=== PATIENT | male | born 1955 | race Caucasian/White ===

== ENCOUNTER 2019-09-08 07:19 | Outpatient (CLI) | payer MEDICARE, SELFPAY ==
[2019-09-08 07:43] LABS: Add Urine Microscopic? YES; Appearance Urine Clear (Clear); Bilirubin Urine Negative (Negative); Blood Urine 1+ (Negative); Color Urine Yellow (Yellow); Glucose Urine UA Negative (Negative); Ketones Urine Negative (Negative); Leukocyte Esterase Ur Negative (Negative); Nitrate Urine Negative (Negative); Protein Urine Negative (Negative); Specific Grav Ur >= 1.030 (1.010-1.020); Urobilinogen Urine 0.2 mg/dL (0.2-1.0); pH Urine 5.5 (5.0-8.0)
[2019-09-08 07:56] LABS: WBC Urine 0-3 /hpf (0-3)
[2019-09-08 07:57] LABS: Bacteria Urine None seen /hpf; RBC Urine 0-2 /hpf (0-2); Squamous Epithelial Cell Urine None seen /hpf (Few)
[2019-09-08 08:11] LABS: Creatinine Urine 135.43 mg/dL (40-278)
[2019-09-08 08:13] LABS: Hemoglobin A1C 7.7 % (<5.7)
[2019-09-08 08:20] LABS: MALB Creatinine Ratio 14.1 mg/g (0-30); Microalbumin Urine Random 19.2 mg/L
[2019-09-08 09:33] LABS: Alanine Aminotransferase 46 U/L (16-63); Alkaline Phosphatase 41 U/L (46-116); Anion Gap 15.6 mmol/L (7-16); Aspartate Amino Transferase 28 U/L (15-37); Bilirubin,Total 0.4 mg/dL (0.00-1.00); Blood Urea Nitrogen 21 mg/dL (7-18); Calcium 9.6 mg/dL (8.5-10.1); Carbon Dioxide 27 mmol/L (21-32); Chloride 103 mmol/L (98-108); Cholesterol 186 mg/dL (0-200); Creatine Kinase 140 U/L (39-308); Estimated Glomerular Filt Rate > 60; Glucose 167 mg/dL (70-99); HDL Direct 42 mg/dL (40-60); LDL Cholesterol Calculated 99 mg/dL (<130); Osmolality Calculated 299 mOsm/kg (285-295); Potassium 4.6 mmol/L (3.5-5.1); Prostate Specific Antigen 0.4 ng/mL (< OR = 4.0); Sodium 141 mmol/L (136-145); Total Protein 7.1 g/dL (6.4-8.2); Triglycerides 224 mg/dL (0-150); Uric Acid 5.1 mg/dL (3.5-7.2)
== END 2019-09-08 07:20 | disposition home or self-care (01) ==
LOC: CHSLAB 07:31
PROVIDERS: PCP Internal Medicine; Visit Provider Internal Medicine
DX: E79.0 Hyperuricemia without signs of inflammatory arthritis and tophaceous disease (principal); I10 Essential (primary) hypertension; E11.65 Type 2 diabetes mellitus with hyperglycemia; E78.5 Hyperlipidemia, unspecified; Z12.5 Encounter for screening for malignant neoplasm of prostate
CPT/HCPCS: 36415; 80053; 80061; 81001; 82043; 82550; 83036; 84153; 84550; G0103

== ENCOUNTER 2019-12-02 07:07 | Outpatient (CLI) | payer MEDICARE, SELFPAY ==
[2019-12-02 07:27] LABS: Hemoglobin A1C 6.7 % (<5.7)
[2019-12-02 07:47] LABS: Anion Gap 11.5 mmol/L (7-16); Blood Urea Nitrogen 20 mg/dL (7-18); Calcium 9.2 mg/dL (8.5-10.1); Carbon Dioxide 29 mmol/L (21-32); Chloride 105 mmol/L (98-108); Estimated Glomerular Filt Rate 57; Glucose 113 mg/dL (70-99); Osmolality Calculated 295 mOsm/kg (285-295); Potassium 4.5 mmol/L (3.5-5.1); Sodium 141 mmol/L (136-145)
== END 2019-12-02 07:08 | disposition home or self-care (01) ==
LOC: CHSLAB 07:10
PROVIDERS: PCP Internal Medicine; Visit Provider Internal Medicine
DX: E11.65 Type 2 diabetes mellitus with hyperglycemia (principal)
CPT/HCPCS: 36415; 80048; 83036

== ENCOUNTER 2020-01-18 01:25 | Observation (INO) | payer MEDICARE, SELFPAY ==
[2020-01-18] VITALS (10 sets, daily range): BP systolic 114–157; BP diastolic 56–86; PULSE 56–91; RESP 18–20; TEMP 35.8–37; O2SAT 97–100; BMI 35.4
--- NOTE | ~2020-01-18 | XR_ITS ---
EXAMINATION: XR chest 2V DATE: 01/18/2020 02:11 INDICATION: Unresponsive. TECHNIQUE: Frontal and lateral views of the chest were obtained. COMPARISON: Chest 2 views 03/29/2014, chest CT 04/24/2006 FINDINGS: The chest demonstrates clear lungs without pneumonia, pleural effusion, or pneumothorax. Th e heart size is normal. IMPRESSION: 1. No acute cardiopulmonary disease. Reviewed, dictated and finalized at location A.
--- NOTE | ~2020-01-18 | CT_ITS ---
EXAMINATION: CT brain wo con DATE: 01/18/2020 02:10 INDICATION: Unresponsive. TECHNIQUE: Computed tomography (CT) of the head was performed without intravenous contrast. The mA wa s adjusted according to patient size. Iterative reconstruction technique was employed. The dose-lengt h product was 681.00 mGy-cm. COMPARISON: None FINDINGS: There is no intracranial hemorrhage, acute infarction, or abnormal intracranial mass lesion . The ventricles are normal in size. There is mild mucosal thickening in the ethmoid sinuses. The orb its are normal. The mastoid air cells are normal. IMPRESSION: 1. Normal brain. Reviewed, dictated and finalized at location A. IMPRESSION: 1. Normal brain.
[2020-01-18 01:34] LABS: Glucose Point of Care 94 (65-105)
--- NOTE | 2020-01-18 01:34 | ECG_ITS ---
Measurements Intervals [place] Rate: 58 P: 16 IN: 143 QRS: -9 QRSD: 103 T: 63 QT: 412 QTc: 406 Interpretive Statements SINUS BRADYCARDIA INCOMPLETE RIGHT BUNDLE BRANCH BLOCK BASELINE WANDER- V4 BORDERLINE ECG Electronically Signed On 01-18-2020 8:56:41 CDT by Ihsan Roque D.O.
[2020-01-18 02:03] LABS: Hematocrit 43.3 % (37.0-46.0); Hemoglobin 14.1 g/dL (12.4-15.3); Mean Corpuscular HGB Conc 32.6 g/dL (32.0-36.0); Mean Corpuscular Hemoglobin 30.9 pg (27.0-31.0); Mean Corpuscular Volume 94.7 fL (78.0-102.0); Mean Platelet Volume 9.8 fl (8.7-11.0); Platelet Count Result 303 K/mm3 (150-420); Red Blood Count 4.57 M/mm3 (4.70-6.10); Red Cell Distribution Width 13.5 % (11.6-14.4); White Blood Count 9.8 K/mm3 (4.8-10.8)
--- NOTE | 2020-01-18 02:05 | ED.GENADULT ---
HPI - General Adult General Chief complaint: Unspecified Stated complaint: Hypoglycemia Source: patient, family and EMS Mode of arrival: EMS History of Present Illness HPI narrative: this is a 64-year-old gentleman that was EMS was called to his home after his found him unresponsive and breathing in the usual manner, after EMS arrived blood sugar were obtained and found to be in 30s and patient received D10 and brought to the emergency department. Patient is alert awake responsive currently blood sugars have improved with some glucose level currently of 94, patient denies any headache, no blurry vision no chest pain or pressure no fever chills no cough or shortness of breath no abdominal pain no dysuria no flank pain. Patient has a history of diabetes mellitus type 2 and is currently on metformin, glimepiride, and recently started on Actos approximately 2 to 3 weeks ago. Patient does drink 2 or 3 beers nightly, has a history of hyperlipidemia and hypertension. Onset (ago): hour(s) Related Data Home Medications Medication Instructions Recorded Confirmed atorvastatin 40 mg PO DAILY 01/18/20 01/18/20 coenzyme Q10 [CoQ-10] 200 mg PO DAILY 01/18/20 01/18/20 fenofibrate 145 mg PO DAILY 01/18/20 01/18/20 glimepiride 4 mg PO DAILY 01/18/20 01/18/20 losartan-hydrochlorothiazide 1 tablet PO DAILY 01/18/20 01/18/20 metformin 1,000 mg PO BID 01/18/20 01/18/20 tozuhfzr-mlo-NN-lycopen-lutein 1 tablet PO DAILY 01/18/20 01/18/20 [Centrum Silver] pioglitazone 45 mg PO DAILY 01/18/20 01/18/20 Allergies Allergy/AdvReac Type Severity Reaction Status Date / Time No Known Drug Allergies Allergy Unknown Verified 04/07/14 05:59 Review of Systems Review of Systems: All systems reviewed & are unremarkable except as noted in HPI and below PMFSH Past Medical History Medical History Diabetes mellitus HLD (hyperlipidemia) HTN (hypertension) Exam Const: General: no acute distress and alert Orientation/consciousness: patient oriented x3 HENMT: Head: normal to inspection Eyes: Conjunctivae: conjunctivae normal Pupils: Equal, round and reactive pupils present EOM: EOMs intact bilaterally Neck: Neck: normal visual inspection, no lymphadenopathy and no meningeal signs Chest: Chest palpation & inspection: normal inspection of the chest Resp: Effort & Inspection: normal respiratory effort Auscultation: clear to auscultation bilaterally Cardio: Rate: regular rate and bradycardic GI: GI Palp: Yes Soft to palpation Auscultation: normal bowel sounds : General: Yes no CVA tenderness Male General Exam: Yes normal external exam Testes: Testes normal Back/Spine/Pelvis: Back: no CVA tenderness Skin: General skin exam: normal color Rashes: no rashes Neuro: General: patient oriented x3, moves all extremities, no meningeal signs and no focal motor deficits Extrem: General: normal to inspection and no pedal edema Psych: Appearance: grossly normal and well kempt Mental Status: mental status grossly normal Affect: normal affect Thought content: Yes Normal thought content present Course Course Emergency Course: Reassessment of patient patient is currently alert awake responsive with no neurological deficits, currently resting comfortably and having a snack. Patient continues to be comfortable after a 2nd reassessment he had his snacks blood glucose level on his comprehensive metabolic plus profile was 47, and a repeat blood glucose level was down to 59. Talked to patient and family and advised admission to monitor blood glucose levels overnight. Vital Signs Vital signs: Vital Signs Temperature 36.2 C L 01/18/20 01:38 Pulse Rate 69 01/18/20 01:38 Respiratory Rate 01/18/20 01:38 Blood Pressure 152/78 H 01/18/20 01:38 Pulse Oximetry 99 01/18/20 01:38 Temperature 36.2 C L 01/18/20 01:38 Pulse Rate 69 01/18/20 01:38 Respiratory Rate 01/18/20
[2020-01-18 02:16] LABS: Appearance Urine Clear (Clear); Bilirubin Urine Negative (Negative); Color Urine Yellow (Yellow); Glucose Urine UA Negative (Negative); Ketones Urine Negative (Negative); Leukocyte Esterase Ur Negative (Negative); Nitrate Urine Negative (Negative); Protein Urine Negative (Negative); pH Urine 5.5 (5.0-8.0)
--- NOTE | 2020-01-18 02:16 | PC.NURSE ---
sandwich , fruit cup and orange juice given to patient.
[2020-01-18 02:22] LABS: Add Urine Microscopic? YES; Bacteria Urine None seen /hpf; Blood Urine Trace-Intact (Negative); RBC Urine 0-2 /hpf (0-2); Squamous Epithelial Cell Urine None seen /hpf (Few); WBC Urine 0-3 /hpf (0-3)
[2020-01-18 02:31] LABS: Alanine Aminotransferase 29 U/L (16-63); Albumin Level 3.7 g/dL (3.4-5.0); Alkaline Phosphatase 49 U/L (46-116); Aspartate Amino Transferase 19 U/L (15-37); Bilirubin,Total 0.3 mg/dL (0.00-1.00); Blood Urea Nitrogen 35 mg/dL (7-18); Calcium 9.3 mg/dL (8.5-10.1); Carbon Dioxide 32 mmol/L (21-32); Chloride 103 mmol/L (98-108); Estimated CRCL calculation 57 ml/min; Estimated Glomerular Filt Rate 50; Magnesium 1.6 mg/dL (1.8-2.4); Osmolality Calculated 299 mOsm/kg (285-295); Sodium 142 mmol/L (136-145); Total Protein 7.3 g/dL (6.4-8.2)
[2020-01-18 02:36] LABS: Ethanol < 3 mg/dL (0-6); Glucose 47 mg/dL (70-99); Troponin I < 0.02 ng/mL (0.00-0.056)
--- NOTE | 2020-01-18 02:37 | PC.NURSE ---
pt ate 100% of food given remains alert and stable, talking with at bedside.
[2020-01-18 02:44] LABS: Glucose Point of Care 59 (65-105)
[2020-01-18] MEDS: DEXTROSE 5% 1,000 ML 1,000 ML 100 ML (02:56)
--- NOTE | 2020-01-18 03:53 | PC.NURSE ---
Dextrose 5% continues 100ml hr from ER.
[2020-01-18 06:57] LABS: Basophils Absolute Auto 0.04 K/mm3 (0.00-0.10); Basophils Percent Auto 0.5 % (0.0-1.0); Eosinophils Absolute Auto 0.05 K/mm3 (0.02-0.50); Eosinophils Percent Auto 0.6 % (1.0-6.0); Hematocrit 40.3 % (37.0-46.0); Hemoglobin 13.3 g/dL (12.4-15.3); Immature Granulocyte Absolute 0.09 K/mm3 (0.00-0.00); Lymphocytes Absolute Auto 1.28 K/mm3 (1.10-4.50); Lymphocytes Percent Auto 14.7 % (18.0-42.0); Mean Corpuscular Hemoglobin 31.2 pg (27.0-31.0); Mean Corpuscular Volume 94.6 fL (78.0-102.0); Mean Platelet Volume 9.7 fl (8.7-11.0); Monocytes Absolute Auto 0.83 K/mm3 (0.10-0.90); Monocytes Percent Auto 9.5 % (2.0-11.0); Neutrophils Absolute Auto 6.4 K/mm3 (1.7-7.2); Neutrophils Percent Auto 73.7 % (50.0-70.0); Platelet Count Result 274 K/mm3 (150-420); Red Blood Count 4.26 M/mm3 (4.70-6.10); Red Cell Distribution Width 13.5 % (11.6-14.4); White Blood Count 8.7 K/mm3 (4.8-10.8)
[2020-01-18 07:18] LABS: Alanine Aminotransferase 27 U/L (16-63); Albumin Level 3.3 g/dL (3.4-5.0); Alkaline Phosphatase 33 U/L (46-116); Anion Gap 9.2 mmol/L (7-16); Aspartate Amino Transferase 18 U/L (15-37); Bilirubin,Total 0.3 mg/dL (0.00-1.00); Blood Urea Nitrogen 33 mg/dL (7-18); Calcium 8.8 mg/dL (8.5-10.1); Carbon Dioxide 31 mmol/L (21-32); Chloride 104 mmol/L (98-108); Estimated CRCL calculation 58 ml/min; Estimated Glomerular Filt Rate 51; Glucose 54 mg/dL (70-99); Magnesium 1.6 mg/dL (1.8-2.4); Osmolality Calculated 295 mOsm/kg (285-295); Potassium 4.2 mmol/L (3.5-5.1); Sodium 140 mmol/L (136-145); Total Protein 6.3 g/dL (6.4-8.2)
[2020-01-18 07:45] LABS: Glucose Point of Care 46 (65-105)
[2020-01-18 08:21] LABS: Glucose Point of Care 95 (65-105)
[2020-01-18] MEDS: ATORVASTATIN 40 MG TABLET PO (08:59)
[2020-01-18] MEDS: FENOFIBRATE NANOCRYSTALLIZED 145 MG TABLET PO (09:00)
[2020-01-18] MEDS: THERAPEUTIC MULTIVITAMINS/MINERALS TAB (*BKC) 1 TABLET PO (09:00)
[2020-01-18] MEDS: LOSARTAN POTASSIUM 50 MG TABLET 100 MG PO (09:00)
[2020-01-18] MEDS: MAGNESIUM OXIDE 400 MG TABLET PO (09:00)
[2020-01-18] MEDS: hydroCHLOROthiazide 25 MG TABLET PO (09:00)
[2020-01-18 09:01] LABS: Lipase 322 U/L (73-393)
[2020-01-18 10:06] LABS: Glucose Point of Care 65 (65-105)
--- NOTE | 2020-01-18 10:13 | PC.NURSE ---
Dextrose 10 started per Negin Marcano [id number]/hr
[2020-01-18 12:00] LABS: Glucose Point of Care 38 (65-105)
[2020-01-18] MEDS: DEXTROSE 10% 250 ML 100 ML IV CONT ×5 (12:31→23:11)
[2020-01-18 12:33] LABS: Glucose 40 mg/dL (70-99)
--- NOTE | 2020-01-18 14:34 | PM.IMHP ---
H&P: HPI History of Present Illness Chief complaint: Hypoglycemia Narrative: Karson Maharaj is a 64 year old male admitted overnight for hypoglycemia after EMS was called to his home. His had found him unresponsive and breathing unusually. After EMS arrived, blood sugars were obtained and found to be in 30s. He received [id number]% and brought to the emergency department. Patient improved to alert awake responsive. He was admitted. His blood sugars have improved with IV glucose supplementation. Patient currently denies any headache, blurry vision, chest pain or pressure, fever chills, cough or shortness of breath, viral or COVID exposure, abdominal pain, dysuria or flank pain. Patient has a history of diabetes mellitus type 2 and is currently on metformin, glimepiride 8mg daily, and started on Actos 45 mg daily (divided dose) in August or September 2019. Patient is now retired, does drink 2 or 3 beers nightly, has a history of hyperlipidemia and hypertension. His ethyl alcohol level was WNL, his UA clear, his head CT and CXR were without acute concerns. Karson is fully responsive today with no noted neurological deficits. His is at bedside. He is currently resting comfortably. He has been ambulating to and from the bathroom, around his hospital room without any difficulty. He is eating and drinking all meals without any nausea or vomiting or diarrhea. Despite the continuous IV dextrose5% at 100 mL an hour, his glucose levels remained in the 30s and 40s this morning. I discontinued the dextrose 5%, increased it to dextrose at 10%, continuously at 100 mL an hour and changed his glucose checks to be every 2 hours continuously. Karson has denied any weight loss recently, he has denied any dietary changes recently, he is denied any trauma or motor vehicle accidents, denied any back or abdominal pain, his mother did pass away from liver cancer in her late 80s, but no other family cancer of note. Karson reports the last time that he took his home oral diabetes medications including the metformin, glimepiride, Actos was last night around 9:00 p.m. prior to his bedtime at home. Due to the half life of these medications his hypoglycemia may persist 24-72 hours. We will plan on monitoring the patient until we are able to wean him from the IV dextrose; plus he is able to safely maintain glucose levels above 100 for 24 hours prior to discharge without requiring supplementation. I did call and speak to his primary care provider Dr. Nghia Day. According to the PCP, there have been no recent medication changes, the Actos was added back in August when his A1C was 7.7. Then in November his A1C was 6.7 Upon my reviewing of the patient's own glucose log, it was evident on some days that his sugars would drop overnight, but then with his poor dietary choices would rise significantly during the day; this may have been attributing to his overall elevated A1C levels. Karson may need to have diabetes medications for morning and daytime control with less dosing or skipping dosing in the evening. I have referred the patient to 1 of 3 endocrinologists at [facility], including Dr. Dory Mackey (recommended by Dr. Day), the patient and his stated they would follow-up. I have spoke with the patient at length regarding carb counting, diabetic diet recommendations, and exercise importance in controlling blood sugars. We have also discussed how important it is for him to stop drinking alcohol. I have encouraged him to ambulate at least 10 minutes after every meal. We will continue to hold his oral diabetes medications at this time. Review of Systems Review of Systems: All systems reviewed & are unremarkable except as noted in HPI and below Constitutional: Constitutional: Reports as per HPI, Denies excessive sweating, Denies headache(s), Denies increased appetite, Denies snoring and Denies weight gain Eyes: Eyes: Reports as per HPI, Denies exophthalmos,
[2020-01-18 15:09] LABS: Glucose Point of Care 66 (65-105)
[2020-01-18 18:09] LABS: Glucose Point of Care 165 (65-105)
[2020-01-18 19:25] LABS: Glucose Point of Care 88 (65-105)
[2020-01-18 20:16] LABS: Glucose Point of Care 157 (65-105)
[2020-01-18 22:08] LABS: Glucose Point of Care 162 (65-105)
[2020-01-19] VITALS: BP 146/69; PULSE 57; PULSE 60; RESP 20; TEMP 36.2; O2SAT 98
[2020-01-19 00:14] LABS: Glucose Point of Care 176 (65-105)
--- NOTE | 2020-01-19 00:29 | PC.NURSE ---
Notified Dr. Cabral about pt's blood sugar. Orders received and noted.
[2020-01-19] MEDS: DEXTROSE 5% 1,000 ML 1,000 ML 100 ML IV CONT (01:05)
[2020-01-19 02:04] LABS: Glucose Point of Care 185 (65-105)
[2020-01-19 03:00] VITALS: PULSE 61
[2020-01-19 04:00] VITALS: BP 139/69; PULSE 55; PULSE 66; RESP 20; TEMP 36.2; O2SAT 99
[2020-01-19 05:49] LABS: Basophils Absolute Auto 0.04 K/mm3 (0.00-0.10); Basophils Percent Auto 0.6 % (0.0-1.0); Eosinophils Absolute Auto 0.16 K/mm3 (0.02-0.50); Eosinophils Percent Auto 2.3 % (1.0-6.0); Hematocrit 40.7 % (37.0-46.0); Hemoglobin 13.6 g/dL (12.4-15.3); Immature Granulocyte Absolute 0.07 K/mm3 (0.00-0.00); Lymphocytes Absolute Auto 1.58 K/mm3 (1.10-4.50); Lymphocytes Percent Auto 22.3 % (18.0-42.0); Mean Corpuscular HGB Conc 33.4 g/dL (32.0-36.0); Mean Corpuscular Hemoglobin 31.3 pg (27.0-31.0); Mean Corpuscular Volume 93.6 fL (78.0-102.0); Mean Platelet Volume 9.3 fl (8.7-11.0); Monocytes Percent Auto 9.9 % (2.0-11.0); Neutrophils Absolute Auto 4.5 K/mm3 (1.7-7.2); Neutrophils Percent Auto 63.9 % (50.0-70.0); Platelet Count Result 259 K/mm3 (150-420); Red Blood Count 4.35 M/mm3 (4.70-6.10); Red Cell Distribution Width 13.4 % (11.6-14.4); White Blood Count 7.1 K/mm3 (4.8-10.8)
[2020-01-19 05:57] LABS: Glucose Point of Care 176 (65-105)
[2020-01-19 05:57] LABS: Glucose Point of Care 168 (65-105)
[2020-01-19 06:05] LABS: Alanine Aminotransferase 27 U/L (16-63); Albumin Level 3.5 g/dL (3.4-5.0); Alkaline Phosphatase 39 U/L (46-116); Anion Gap 7.3 mmol/L (7-16); Aspartate Amino Transferase 18 U/L (15-37); Bilirubin,Total 0.4 mg/dL (0.00-1.00); Blood Urea Nitrogen 24 mg/dL (7-18); Calcium 8.9 mg/dL (8.5-10.1); Carbon Dioxide 33 mmol/L (21-32); Chloride 102 mmol/L (98-108); Estimated CRCL calculation 59 ml/min; Estimated Glomerular Filt Rate 51; Glucose 176 mg/dL (70-99); Osmolality Calculated 294 mOsm/kg (285-295); Potassium 4.3 mmol/L (3.5-5.1); Sodium 138 mmol/L (136-145); Total Protein 6.8 g/dL (6.4-8.2)
[2020-01-19 07:50] VITALS: BP 130/67; PULSE 82; RESP 18; TEMP 36.2; O2SAT 100
[2020-01-19 07:50] LABS: Glucose Point of Care 211 (65-105)
[2020-01-19] MEDS: hydroCHLOROthiazide 25 MG TABLET PO (08:57)
[2020-01-19] MEDS: THERAPEUTIC MULTIVITAMINS/MINERALS TAB (*BKC) 1 TABLET PO (08:57)
[2020-01-19] MEDS: MAGNESIUM OXIDE 400 MG TABLET PO (08:57)
[2020-01-19] MEDS: FENOFIBRATE NANOCRYSTALLIZED 145 MG TABLET PO (08:57)
[2020-01-19] MEDS: ATORVASTATIN 40 MG TABLET PO (08:57)
[2020-01-19] MEDS: LOSARTAN POTASSIUM 50 MG TABLET 100 MG PO (08:57)
[2020-01-19 09:59] LABS: Glucose Point of Care 260 (65-105)
--- NOTE | 2020-01-19 11:28 | PM.IMPN ---
Progress Note: A&P Assessment and Plan (1) Hypoglycemia: Code(s): E16.2 - Hypoglycemia, unspecified <Negin Marcano NP - Last Filed: 01/19/20 15:52> Status: Acute <Negin Marcano NP - Last Filed: 01/19/20 15:52> Assessment and Plan: starting having random hypoglycemic episodes in September with blood sugars less than 80 on multiple occasions in September and October and November according to his home glucose check log Check glucose levels every 2 hours continue IV drip of dextrose 10% at 100 mL an hour continuous telemetry monitoring creatinine baseline 1.2 per primary care provider Dr. Day, currently creatinine 1.4 diabetic diet holding his home diabetic medications including glimepiride, metformin, Actos referred patient to see practice billing associate after discharge <Negin Marcano NP - Last Filed: 01/19/20 15:52> (2) Diabetes mellitus: Qualifiers: Diabetes mellitus complication status: without complication Diabetes mellitus middle or intermediate school principal insulin use: without middle or intermediate school principal use Diabetes mellitus type: type 2 Qualified Code(s): E11.9 - Type 2 diabetes mellitus without complications <Negin Marcano NP - Last Filed: 01/19/20 15:52> Code(s): E11.9 - Type 2 diabetes mellitus without complications <Negin Marcano NP - Last Filed: 01/19/20 15:52> Status: Acute <Negin Marcano NP - Last Filed: 01/19/20 15:52> Assessment and Plan: patient refusing to use insulin and due to poor dietary choices over last 6 months, elevated A1Cs, requiring more oral medications per PCP to control DMII. December 01 A1c was 6.7 Check glucose levels ACHS and every 2-4 hours PRN creatinine baseline 1.2 per primary care provider Dr. Day, currently creatinine 1..39 from 1.4 yesterday diabetic diet not consistently followed at home, such as reports eating ice cream before bedtime frequently and/or 2 or 3 beers at night restarted metformin, holding his home diabetic medications including glimepiride, Actos referred patient to see practice billing associate after discharge <Negin Marcano NP - Last Filed: 01/19/20 15:52> (3) Alcohol use: Code(s): Z72.89 - Other problems related to lifestyle <Negin Marcano NP - Last Filed: 01/19/20 15:52> Status: Acute <Negin Marcano NP - Last Filed: 01/19/20 15:52> Assessment and Plan: reports having 2-3 beers at night encourage patient to stop alcohol use completely educated patient regarding how alcohol can lead to hyperglycemia as well as significant hypoglycemia will encourage patient to attend AA meetings will monitor for any DT or withdrawal symptoms or concerns. continuous telemetry monitoring ordered <Negin Marcano NP - Last Filed: 01/19/20 15:52> (4) NICK (acute kidney injury): Code(s): N17.9 - Acute kidney failure, unspecified <Negin Marcano NP - Last Filed: 01/19/20 15:52> Status: Acute <Negin Marcano NP - Last Filed: 01/19/20 15:52> Assessment and Plan: creatinine baseline 1.2 per primary care provider Dr. Day, currently creatinine 1.39 August and November 2019 labs show a creatinine of 1.1 and 1.2 his current renal dysfunction may be related to dehydration and/or diabetes medications and/or complications of diabetes Encouraging oral hydration to improve on diabetic diet holding his home diabetic medications including glimepiride and Actos restarting Metformin, repeating BMP in morning to monitor if renal function tolerates that. patient to see PCP and/or practice billing associate after discharge <Negin Marcano NP - Last Filed: 01/19/20 15:52> Subjective Date/time seen: 01/19/20 11:28 Karson is feeling well today. Starting around 6:00 p.m. yesterday evening his point of care glucose level started to improve. Around 6:00 p.m. yesterday it was 165 and stated above 150 until today. We were able to discontinue the dextrose 5% IV fluids this morning. We were also able to di
[2020-01-19 11:43] LABS: Glucose Point of Care 150 (65-105)
[2020-01-19 12:00] VITALS: BP 109/55; PULSE 85; RESP 18; TEMP 36.3; O2SAT 97
[2020-01-19] MEDS: metFORMIN HCL XR 500 MG TAB.SR.24H PO ×2 (13:33→21:21)
[2020-01-19 15:48] LABS: Glucose Point of Care 184 (65-105)
[2020-01-19 16:00] VITALS: BP 136/60; PULSE 80; RESP 18; TEMP 36.4; O2SAT 98
[2020-01-19 16:59] LABS: Glucose Point of Care 132 (65-105)
--- NOTE | 2020-01-19 19:00 | PC.NURSE ---
Patient ambulating in [place] independently.
[2020-01-19 21:23] LABS: Glucose Point of Care 143 (65-105)
--- NOTE | 2020-01-19 21:56 | PC.NURSE ---
Patient given cottage cheese and a fruit cup for HS snack.
--- NOTE | 2020-01-19 22:30 | PC.NURSE ---
Patient resting in bed. No signs of distress are observed. Patient denies any need for assistance at this time.
[2020-01-20] VITALS: BP 141/57; PULSE 67; RESP 20; TEMP 36.3; O2SAT 96
[2020-01-20 00:48] LABS: Glucose Point of Care 153 (65-105)
--- NOTE | 2020-01-20 02:00 | PC.NURSE ---
Patient appears to be sleeping. No signs of distress are observed. Call light and personal items are within reach.
--- NOTE | 2020-01-20 04:00 | PC.NURSE ---
Patient appears to be sleeping. No signs of distress are observed.
[2020-01-20 05:33] LABS: Glucose Point of Care 158 (65-105)
--- NOTE | 2020-01-20 05:50 | PC.NURSE ---
Patient is resting in bed. He is stating that he feels well. He is independent with self care and ambulation.
[2020-01-20 05:57] LABS: Anion Gap 10.3 mmol/L (7-16); Blood Urea Nitrogen 29 mg/dL (7-18); Calcium 8.8 mg/dL (8.5-10.1); Carbon Dioxide 31 mmol/L (21-32); Chloride 101 mmol/L (98-108); Estimated CRCL calculation 61 ml/min; Estimated Glomerular Filt Rate 54; Glucose 160 mg/dL (70-99); Osmolality Calculated 294 mOsm/kg (285-295); Potassium 4.3 mmol/L (3.5-5.1); Sodium 138 mmol/L (136-145)
--- NOTE | 2020-01-20 07:20 | PM.DS ---
DS: Admitting Diagnosis Admitting Diagnosis Admitting Diagnosis: Hypoglycemia, unspecified DS: Discharge Diagnosis Discharge Diagnosis (1) Hypoglycemia: Code(s): E16.2 - Hypoglycemia, unspecified Status: Acute Assessment and Plan: started having random hypoglycemic episodes in September with blood sugars less than 80 on multiple occasions in September and October and November according to his home glucose check log (was on Actos and Glimepiride at the time) discharged and instructed patient to check glucose levels 3 times a day creatinine baseline 1.2 per primary care provider Dr. Day, at admission creatinine 1.4, improved to 1.33 now. diabetic diet holding his home diabetic medications including glimepiride, Actos restarted him Metformin dosing referred patient to see dice spotter after discharge (2) Diabetes mellitus: Qualifiers: Diabetes mellitus complication status: without complication Diabetes mellitus exterminator insulin use: without exterminator use Diabetes mellitus type: type 2 Qualified Code(s): E11.9 - Type 2 diabetes mellitus without complications Code(s): E11.9 - Type 2 diabetes mellitus without complications Status: Acute Assessment and Plan: patient refusing to use insulin and due to poor dietary choices over last 6 months, had elevated A1Cs, requiring more oral medications per PCP to control DMII. December 01 A1c was 6.7 (was 7.7 prior) discharged and instructed patient to check glucose levels 3 times a day creatinine baseline 1.2 per primary care provider Dr. Day, at admission creatinine 1.4, improved to 1.33 now. diabetic diet not consistently followed at home, such as reports eating ice cream before bedtime frequently and/or 2 or 3 beers at night restarted metformin, holding his home diabetic medications including glimepiride, Actos referred patient to see dice spotter (3) Alcohol use: Code(s): Z72.89 - Other problems related to lifestyle Status: Acute Assessment and Plan: reports having 2-3 beers at night encourage patient to stop alcohol use completely educated patient regarding how alcohol can lead to hyperglycemia as well as significant hypoglycemia will encourage patient to attend AA meetings no DT or withdrawal symptoms or concerns. (4) NICK (acute kidney injury): Code(s): N17.9 - Acute kidney failure, unspecified Status: Acute Assessment and Plan: creatinine baseline 1.2 per primary care provider Dr. Day, at admission creatinine 1.4, improved to 1.33 now. August and November 2019 labs show a creatinine of 1.1 and 1.2 his current renal dysfunction may be related to dehydration and/or diabetes medications and/or HCTZ related and/or complications of diabetes Encouraging oral hydration to improve on diabetic diet holding his home diabetic medications including glimepiride and Actos restarted Metformin,BMP showed renal function tolerated that. patient to see PCP and/or dice spotter after discharge DS: Summary Time Spent with Patient Time attestation: Total time spent providing and/or coordinating discharge services:>60 minutes Exam Const: General: comfortable, no acute distress and alert Orientation/consciousness: patient oriented x3 HENMT: Head: normal to inspection General nose exam: Normal nares present and no epistaxis Mouth: Yes moist mucous membranes Eyes: General: appearance normal, both eyes and all related structures Conjunctivae: conjunctivae normal Pupils: Equal, round and reactive pupils present EOM: EOMs intact bilaterally Neck: Neck: normal visual inspection, no lymphadenopathy and no meningeal signs Chest: Chest palpation & inspection: normal inspection of the chest Resp: Effort & Inspection: normal respiratory effort Auscultation: clear to auscultation bilaterally, no crackles, no rales, no rhonchi and no wheezes Cardio: Rate: regular rate Rhythm: regular rhythm GI: Inspection: non-d
[2020-01-20 07:50] VITALS: BP 134/67; PULSE 75; RESP 18; TEMP 36.5; O2SAT 99
[2020-01-20] MEDS: MAGNESIUM OXIDE 400 MG TABLET PO (09:14)
[2020-01-20] MEDS: LOSARTAN POTASSIUM 50 MG TABLET 100 MG PO (09:14)
[2020-01-20] MEDS: metFORMIN HCL XR 500 MG TAB.SR.24H 1000 MG PO (09:15)
[2020-01-20] MEDS: hydroCHLOROthiazide 25 MG TABLET PO (09:15)
[2020-01-20] MEDS: FENOFIBRATE NANOCRYSTALLIZED 145 MG TABLET PO (09:15)
[2020-01-20] MEDS: THERAPEUTIC MULTIVITAMINS/MINERALS TAB (*BKC) 1 TABLET PO (09:15)
[2020-01-20] MEDS: ATORVASTATIN 40 MG TABLET PO (09:15)
--- NOTE | 2020-01-20 11:25 | PC.NURSE ---
at patient bedside. HERBERTH DIRECTOR INDEPENDENT in room to speak with patient discharge. BS 98. Patient denies any needs at this time.
[2020-01-20 11:29] LABS: Glucose Point of Care 98 (65-105)
--- NOTE | 2020-01-20 12:02 | PM.EVENT ---
Event Note Event Note Event Note: January 20, 2020 Re: Karson Maharaj 51 Letter of Medical Necessity - Referral Letter Dear Dr. Lin Lynn's Office, I am referring Karson Maharaj for evaluation and treatment due to Type II DM, recent hypoglycemia due to diabetic medications, NICK, facility sales and admin referral, Obesity, and need for diabetic and nutritional education. I have been Karson Maharaj's Hospitalist for his recent admission. His primary care physician Dr. Nghia Day and I have discussed the patient and his recent hospitalization, both agreed he should follow-up with an fire alarm repairer. Sincerely, [place] [address]
--- NOTE | 2020-01-20 12:31 | PC.NURSE ---
Faxed DC note and referral to Dr. Lin Lynn, Drivers License Examiner and confirmation in chart. Faxed DC sumnmary to Dr. Day's office and confirmation in chart.
--- NOTE | 2020-01-20 12:35 | PC.NURSE ---
Patient discharged to home. All discharge instructions and education reviewed with patient. Patient states understanding, no questions at present. All belongings gathered and sent home with patient. Patient left ambulatory accompanied by .IV site removed, tip intact, dressing applied to site.
== END 2020-01-20 12:35 | disposition home or self-care (01) ==
LOC: CHSED 02:48 → CHS2ND 02:55
PROVIDERS: Nurse Practitioner; Admitting Provider Emergency Medicine; Emergency Provider Emergency Medicine; PCP Internal Medicine; Visit Provider Emergency Medicine
DX: E11.649 Type 2 diabetes mellitus with hypoglycemia without coma (principal); E78.5 Hyperlipidemia, unspecified; I10 Essential (primary) hypertension; Z72.89 Other problems related to lifestyle; Z79.899 Other long term (current) drug therapy
CPT/HCPCS: 36415; 70450; 71046; 80048; 80053; 80307; 81001; 82947; 82948; 83605; 83690; 83735; 84484; 84681; 85025; 85027; 86337; 87040; 93005; 96365; 96366; 99283; 99285; A9270; G0378; J1815; J7070

== ENCOUNTER 2020-01-27 08:59 | Outpatient (CLI) | payer MEDICARE, SELFPAY ==
[2020-01-27 09:41] LABS: Anion Gap 11.6 mmol/L (7-16); Blood Urea Nitrogen 20 mg/dL (7-18); Calcium 9.9 mg/dL (8.5-10.1); Carbon Dioxide 29 mmol/L (21-32); Chloride 102 mmol/L (98-108); Estimated Glomerular Filt Rate > 60; Glucose 170 mg/dL (70-99); Magnesium 1.7 mg/dL (1.8-2.4); Osmolality Calculated 292 mOsm/kg (285-295); Potassium 4.6 mmol/L (3.5-5.1); Sodium 138 mmol/L (136-145)
== END 2020-01-27 09:00 | disposition home or self-care (01) ==
LOC: CHSLAB 09:02
PROVIDERS: PCP Internal Medicine; Visit Provider Internal Medicine
DX: E83.42 Hypomagnesemia (principal); I10 Essential (primary) hypertension
CPT/HCPCS: 36415; 80048; 83735

== ENCOUNTER 2020-03-07 09:02 | Outpatient (CLI) | payer SELFPAY | END 2020-03-07 09:03 | disposition home or self-care (01) | PROVIDERS: PCP Internal Medicine | DX: E11.65 Type 2 diabetes mellitus with hyperglycemia (principal) | CPT/HCPCS: 99199 ==

== ENCOUNTER 2020-05-17 09:18 | Outpatient (CLI) | payer MEDICARE, SELFPAY ==
[2020-05-18 14:03] LABS: SARS-CoV-2 RNA PCR Negative
== END 2020-05-17 09:19 | disposition home or self-care (01) ==
LOC: CHSLAB 09:21
PROVIDERS: PCP Internal Medicine; Visit Provider Internal Medicine
DX: Z20.828 Contact with and (suspected) exposure to other viral communicable diseases (principal)
CPT/HCPCS: 87635; C9803; U0003

== ENCOUNTER 2020-12-06 07:19 | Outpatient (CLI) | payer MEDICARE, SELFPAY ==
[2020-12-06 07:36] LABS: Appearance Urine Clear (Clear); Basophils Absolute Auto 0.07 K/mm3 (0.00-0.10); Bilirubin Urine Negative (Negative); Blood Urine 1+ (Negative); Eosinophils Absolute Auto 0.08 K/mm3 (0.02-0.50); Eosinophils Percent Auto 1.2 % (1.0-6.0); Glucose Urine UA 3+ (Negative); Hematocrit 48.5 % (37.0-46.0); Hemoglobin 15.9 g/dL (12.4-15.3); Immature Granulocyte Absolute 0.03 K/mm3 (0.00-0.00); Immature Granulocyte Percent A 0.4 % (0.0-0.0); Ketones Urine Negative (Negative); Leukocyte Esterase Ur Negative LEU/UL (Negative); Lymphocytes Absolute Auto 1.41 K/mm3 (1.10-4.50); Lymphocytes Percent Auto 20.4 % (18.0-42.0); Mean Corpuscular HGB Conc 32.8 g/dL (32.0-36.0); Mean Corpuscular Volume 91.5 fL (78.0-102.0); Mean Platelet Volume 9.3 fl (8.7-11.0); Monocytes Absolute Auto 0.71 K/mm3 (0.10-0.90); Monocytes Percent Auto 10.3 % (2.0-11.0); Neutrophils Absolute Auto 4.6 K/mm3 (1.7-7.2); Neutrophils Percent Auto 66.7 % (50.0-70.0); Nitrate Urine Negative (Negative); Platelet Count Result 333 K/mm3 (150-420); Protein Urine Negative (Negative); Specific Grav Ur 1.025 (1.010-1.020); Urobilinogen Urine 0.2 mg/dL (0.2-1.0); White Blood Count 6.9 K/mm3 (4.8-10.8); pH Urine 5.5 (5.0-8.0)
[2020-12-06 07:38] LABS: Add Urine Microscopic? YES; Color Urine Light Yellow (Yellow)
[2020-12-06 07:45] LABS: Bacteria Urine None seen /hpf; RBC Urine 0-2 /hpf (0-2); WBC Urine None seen /hpf (0-3)
[2020-12-06 07:57] LABS: Creatinine Urine 79.35 mg/dL (40-278); MALB Creatinine Ratio 16.3 mg/g (0-30); Microalbumin Urine Random < 13.0 mg/L
[2020-12-06 08:46] LABS: Alanine Aminotransferase 28 U/L (16-63); Alkaline Phosphatase 59 U/L (46-116); Anion Gap 11 mmol/L (8-16); Aspartate Amino Transferase 17 U/L (15-37); Bilirubin,Total 0.5 mg/dL (0.00-1.00); Blood Urea Nitrogen 15 mg/dL (7-18); Calcium 9.4 mg/dL (8.5-10.1); Carbon Dioxide 28 mmol/L (21-32); Chloride 101 mmol/L (98-108); Cholesterol 171 mg/dL (0-200); Creatine Kinase 102 U/L (39-308); Estimated Glomerular Filt Rate > 60; Glucose 146 mg/dL (70-99); HDL Direct 43 mg/dL (40-60); LDL Cholesterol Calculated 96 mg/dL (<130); Osmolality Calculated 293 mOsm/kg (285-295); Potassium 4.5 mmol/L (3.5-5.1); Prostate Specific Antigen 0.6 ng/mL (< OR = 4.0); Sodium 140 mmol/L (136-145); Total Protein 7.1 g/dL (6.4-8.2); Triglycerides 162 mg/dL (0-150); Uric Acid 4.1 mg/dL (3.5-7.2)
[2020-12-12 06:46] LABS: Fructosamine 250 umol/L (205-285)
== END 2020-12-06 07:20 | disposition home or self-care (01) ==
PROVIDERS: PCP Internal Medicine
DX: E11.65 Type 2 diabetes mellitus with hyperglycemia (principal); I10 Essential (primary) hypertension; E78.2 Mixed hyperlipidemia; E79.0 Hyperuricemia without signs of inflammatory arthritis and tophaceous disease; Z12.5 Encounter for screening for malignant neoplasm of prostate
CPT/HCPCS: 36415; 80053; 80061; 81001; 82043; 82550; 82985; 83036; 84153; 84550; 85025; G0103

== ENCOUNTER 2021-02-08 09:44 | Outpatient (CLI) | payer MEDICARE, SELFPAY ==
--- NOTE | 2021-02-08 11:10 | ECG_ITS ---
Measurements Intervals [place] Rate: 80 P: 34 GA: 146 QRS: -62 QRSD: 97 T: 52 QT: 367 QTc: 426 Interpretive Statements SINUS RHYTHM LEFT AXIS DEVIATION INCOMPLETE RIGHT BUNDLE BRANCH BLOCK INFERIOR INFARCT, AGE INDETERMINATE ABNORMAL ECG Electronically Signed On 02-08-2021 11:32:29 CDT by Ihsan Roque D.O.
[2021-02-08 11:45] LABS: Basophils Absolute Auto 0.1 K/mm3 (0.0-0.1); Basophils Percent Auto 0.8 % (0.2-1.2); Eosinophils Absolute Auto 0.1 K/mm3 (0-0.3); Eosinophils Percent Auto 0.8 % (0-4.4); Hematocrit 46.5 % (42.0-52.0); Hemoglobin 15.3 g/dL (14.0-18.0); Immature Granulocyte Absolute 0.03 K/mm3 (0.00-0.031); Immature Granulocyte Percent A 0.4 % (0-0.5); Lymphocytes Absolute Auto 1.23 K/mm3 (0.9-3.2); Lymphocytes Percent Auto 16.3 % (18.3-44.2); Mean Corpuscular HGB Conc 32.9 g/dl (32-36); Mean Corpuscular Hemoglobin 29.4 pg (26-34); Mean Corpuscular Volume 89.4 fl (80-100); Mean Platelet Volume 9.9 fl (7.4-10.4); Monocytes Absolute Auto 0.9 K/mm3 (0.1-0.6); Monocytes Percent Auto 11.2 % (2.6-8.5); Neutrophils Absolute Auto 5.3 K/mm3 (1.3-6.7); Neutrophils Percent Auto 70.5 % (45.5-73.1); Platelet Count Result 330 k/mm3 (150-375); Red Cell Distribution Width 13.1 % (11.5-14.5); White Blood Count 7.6 K/mm3 (4.5-10.0)
[2021-02-08 11:50] LABS: Urine Cotinine NEGATIVE
[2021-02-08 11:58] LABS: Albumin Level 4.6 g/dL (3.5-5.1); Anion Gap 9 mmol/L (8-16); Blood Urea Nitrogen 17 mg/dL (9-20); Calcium 10.3 mg/dL (8.4-10.2); Carbon Dioxide 27 mmol/L (22-30); Chloride 104 mmol/L (98-107); Estimated Glomerular Filt Rate > 60; Glucose 112 mg/dL (65-110); Potassium 4.2 mmol/L (3.4-5.0); Sodium 140 mmol/L (137-145)
[2021-02-08 12:44] LABS: Vitamin D 25 Hydroxy 48.6 ng/mL
== END 2021-02-08 09:45 | disposition home or self-care (01) ==
LOC: ANHSURGERY 09:50
PROVIDERS: PCP Internal Medicine; Visit Provider Orthopaedic Surgery
DX: Z01.818 Encounter for other preprocedural examination (principal); M16.11 Unilateral primary osteoarthritis, right hip; I25.2 Old myocardial infarction; I45.10 Unspecified right bundle-branch block; I45.2 Bifascicular block; Z51.81 Encounter for therapeutic drug level monitoring; Z79.899 Other long term (current) drug therapy
CPT/HCPCS: 80048; 80307; 82040; 82306; 85025; 87070; 93005

== ENCOUNTER 2021-07-12 07:16 | Outpatient (CLI) | payer MEDICARE, SELFPAY ==
[2021-07-12 07:32] LABS: Add Urine Microscopic? YES; Appearance Urine Clear (Clear); Basophils Absolute Auto 0.06 K/mm3 (0.00-0.10); Bilirubin Urine Negative (Negative); Blood Urine 1+ (Negative); Color Urine Light Yellow (Yellow); Eosinophils Absolute Auto 0.14 K/mm3 (0.02-0.50); Eosinophils Percent Auto 2.4 % (1.0-6.0); Glucose Urine UA 3+ (Negative); Hematocrit 50.5 % (37.0-46.0); Hemoglobin 16.5 g/dL (12.4-15.3); Immature Granulocyte Absolute 0.05 K/mm3 (0.00-0.00); Immature Granulocyte Percent A 0.9 % (0.0-0.0); Ketones Urine Negative (Negative); Leukocyte Esterase Ur Negative (Negative); Lymphocytes Absolute Auto 1.41 K/mm3 (1.10-4.50); Lymphocytes Percent Auto 24.5 % (18.0-42.0); Mean Corpuscular HGB Conc 32.7 g/dL (32.0-36.0); Mean Corpuscular Hemoglobin 30.1 pg (27.0-31.0); Mean Platelet Volume 9.9 fl (8.7-11.0); Monocytes Percent Auto 10.4 % (2.0-11.0); Neutrophils Absolute Auto 3.5 K/mm3 (1.7-7.2); Neutrophils Percent Auto 60.8 % (50.0-70.0); Nitrate Urine Negative (Negative); Platelet Count Result 304 K/mm3 (150-420); Protein Urine Negative (Negative); Red Blood Count 5.49 M/mm3 (4.70-6.10); Red Cell Distribution Width 13.6 % (11.6-14.4); Urobilinogen Urine 0.2 mg/dL (0.2-1.0); White Blood Count 5.8 K/mm3 (4.8-10.8); pH Urine 5.5 (5.0-8.0)
[2021-07-12 07:42] LABS: Bacteria Urine Trace /hpf; RBC Urine 0-2 /hpf (0-2); Squamous Epithelial Cell Urine Few /hpf (Few); WBC Urine None seen /hpf (0-3)
[2021-07-12 07:46] LABS: Creatinine Urine 99.64 mg/dL (40-278); MALB Creatinine Ratio 13.8 mg/g (0-30); Microalbumin Urine Random 13.8 mg/L
[2021-07-12 07:48] LABS: Hemoglobin A1C 6.8 % (<5.7)
[2021-07-12 08:04] LABS: Alanine Aminotransferase 34 U/L (16-63); Albumin Level 4.1 g/dL (3.4-5.0); Alkaline Phosphatase 55 U/L (46-116); Anion Gap 10 mmol/L (8-16); Aspartate Amino Transferase 20 U/L (15-37); Bilirubin,Total 0.4 mg/dL (0.00-1.00); Blood Urea Nitrogen 18 mg/dL (7-18); Calcium 9.2 mg/dL (8.5-10.1); Carbon Dioxide 27 mmol/L (21-32); Chloride 104 mmol/L (98-108); Cholesterol 165 mg/dL (0-200); Creatine Kinase 102 U/L (39-308); Estimated Glomerular Filt Rate 56; Glucose 155 mg/dL (70-99); HDL Direct 52 mg/dL (40-60); LDL Cholesterol Calculated 90 mg/dL (<130); Osmolality Calculated 296 mOsm/kg (285-295); Potassium 4.6 mmol/L (3.5-5.1); Sodium 141 mmol/L (136-145); Total Protein 7.4 g/dL (6.4-8.2); Triglycerides 114 mg/dL (0-150); Uric Acid 4.7 mg/dL (3.5-7.2)
[2021-07-18 00:34] LABS: Fructosamine 249 umol/L (205-285)
== END 2021-07-12 07:17 | disposition home or self-care (01) ==
LOC: CHSLAB 07:19
PROVIDERS: PCP Internal Medicine
DX: E78.2 Mixed hyperlipidemia (principal); I10 Essential (primary) hypertension; E79.0 Hyperuricemia without signs of inflammatory arthritis and tophaceous disease; E11.65 Type 2 diabetes mellitus with hyperglycemia
CPT/HCPCS: 36415; 80053; 80061; 81001; 82043; 82550; 82985; 83036; 84550; 85025

== ENCOUNTER 2022-01-10 07:23 | Outpatient (CLI) | payer MEDICARE, SELFPAY ==
[2022-01-10 07:40] LABS: Add Urine Microscopic? YES; Appearance Urine Clear (Clear); Bilirubin Urine Negative (Negative); Blood Urine 1+ (Negative); Color Urine Light Yellow (Yellow); Glucose Urine UA 3+ (Negative); Ketones Urine Negative (Negative); Leukocyte Esterase Ur Negative (Negative); Nitrate Urine Negative (Negative); Protein Urine Negative (Negative); Urobilinogen Urine 0.2 mg/dL (0.2-1.0); pH Urine 5.5 (5.0-8.0)
[2022-01-10 07:45] LABS: Bacteria Urine None seen /hpf; RBC Urine 0-2 /hpf (0-2); WBC Urine None seen /hpf (0-3)
[2022-01-10 08:03] LABS: Creatinine Urine 87.12 mg/dL (40-278); MALB Creatinine Ratio 17.6 mg/g (0-30); Microalbumin Urine Random 15.4 mg/L
[2022-01-10 08:46] LABS: Alanine Aminotransferase 27 U/L (16-63); Albumin Level 4.2 g/dL (3.4-5.0); Alkaline Phosphatase 59 U/L (46-116); Anion Gap 9 mmol/L (8-16); Aspartate Amino Transferase 23 U/L (15-37); Bilirubin,Total 0.6 mg/dL (0.00-1.00); Blood Urea Nitrogen 24 mg/dL (7-18); Carbon Dioxide 28 mmol/L (21-32); Chloride 103 mmol/L (98-108); Cholesterol 195 mg/dL (0-200); Creatine Kinase 135 U/L (39-308); Estimated Glomerular Filt Rate 57; Glucose 139 mg/dL (70-99); HDL Direct 52 mg/dL (40-60); LDL Cholesterol Calculated 110 mg/dL (<130); Osmolality Calculated 296 mOsm/kg (285-295); Potassium 4.9 mmol/L (3.5-5.1); Prostate Specific Antigen 0.5 ng/mL (< OR = 4.0); Sodium 140 mmol/L (136-145); Total Protein 7.3 g/dL (6.4-8.2); Triglycerides 166 mg/dL (0-150); Vitamin B12 303 pg/mL (193-986)
[2022-01-10 08:55] LABS: Folic Acid > 20.0 ng/mL (8.6->20)
[2022-01-15 18:40] LABS: Fructosamine 254 umol/L (205-285)
== END 2022-01-10 07:24 | disposition home or self-care (01) ==
LOC: CHSLAB 07:27
PROVIDERS: PCP Internal Medicine
DX: E78.5 Hyperlipidemia, unspecified (principal); E11.65 Type 2 diabetes mellitus with hyperglycemia; I10 Essential (primary) hypertension; E11.649 Type 2 diabetes mellitus with hypoglycemia without coma; E79.0 Hyperuricemia without signs of inflammatory arthritis and tophaceous disease; Z12.5 Encounter for screening for malignant neoplasm of prostate
CPT/HCPCS: 36415; 80053; 80061; 81001; 82043; 82550; 82607; 82746; 82985; 84153; 84550; G0103

== ENCOUNTER 2022-08-22 07:13 | Outpatient (CLI) | payer MEDICARE, SELFPAY ==
[2022-08-22 07:27] LABS: Basophils Absolute Auto 0.07 K/mm3 (0.00-0.10); Basophils Percent Auto 1.2 % (0.0-1.0); Eosinophils Absolute Auto 0.07 K/mm3 (0.02-0.50); Eosinophils Percent Auto 1.2 % (1.0-6.0); Hematocrit 48.7 % (37.0-46.0); Hemoglobin 16.2 g/dL (12.4-15.3); Immature Granulocyte Absolute 0.04 K/mm3 (0.00-0.00); Immature Granulocyte Percent A 0.7 % (0.0-0.0); Lymphocytes Percent Auto 21.8 % (18.0-42.0); Mean Corpuscular HGB Conc 33.3 g/dL (32.0-36.0); Mean Corpuscular Hemoglobin 32.3 pg (27.0-31.0); Mean Corpuscular Volume 97.2 fL (78.0-102.0); Mean Platelet Volume 9.9 fl (8.7-11.0); Monocytes Absolute Auto 0.58 K/mm3 (0.10-0.90); Monocytes Percent Auto 9.7 % (2.0-11.0); Neutrophils Absolute Auto 3.9 K/mm3 (1.7-7.2); Neutrophils Percent Auto 65.4 % (50.0-70.0); Platelet Count Result 286 K/mm3 (150-420); Red Blood Count 5.01 M/mm3 (4.70-6.10); Red Cell Distribution Width 12.8 % (11.6-14.4)
[2022-08-22 07:49] LABS: Appearance Urine Clear (Clear); Bilirubin Urine Negative (Negative); Blood Urine Trace-Intact (Negative); Color Urine Light Yellow (Yellow); Glucose Urine UA 3+ (Negative); Ketones Urine Negative (Negative); Leukocyte Esterase Ur Negative LEU/UL (Negative); Nitrate Urine Negative (Negative); Protein Urine Negative (Negative); Urobilinogen Urine 0.2 mg/dL (0.2-1.0)
[2022-08-22 08:02] LABS: Creatinine Urine 62.87 mg/dL (40-278); MALB Creatinine Ratio 20.6 mg/g (0-30); Microalbumin Urine Random < 13.0 mg/L
[2022-08-22 08:16] LABS: Add Urine Microscopic? YES; Bacteria Urine None seen /hpf; RBC Urine None seen /hpf (0-2); WBC Urine None seen /hpf (0-3)
[2022-08-22 08:23] LABS: Alanine Aminotransferase 43 U/L (16-63); Albumin Level 4.3 g/dL (3.4-5.0); Alkaline Phosphatase 42 U/L (46-116); Anion Gap 9 mmol/L (8-16); Aspartate Amino Transferase 29 U/L (15-37); Bilirubin,Total 0.6 mg/dL (0.00-1.00); Blood Urea Nitrogen 24 mg/dL (7-18); Calcium 9.2 mg/dL (8.5-10.1); Carbon Dioxide 30 mmol/L (21-32); Chloride 103 mmol/L (98-108); Cholesterol 210 mg/dL (0-200); Creatine Kinase 94 U/L (39-308); Estimated Glomerular Filt Rate 59; Glucose 159 mg/dL (70-99); HDL Direct 52 mg/dL (40-60); LDL Cholesterol Calculated 131 mg/dL (<130); Osmolality Calculated 301 mOsm/kg (285-295); Potassium 4.9 mmol/L (3.5-5.1); Sodium 142 mmol/L (136-145); Total Protein 7.5 g/dL (6.4-8.2); Triglycerides 137 mg/dL (0-150)
== END 2022-08-22 07:14 | disposition home or self-care (01) ==
LOC: CHSLAB 07:17
PROVIDERS: PCP Internal Medicine; Visit Provider Internal Medicine
DX: E79.0 Hyperuricemia without signs of inflammatory arthritis and tophaceous disease (principal); I10 Essential (primary) hypertension; E78.2 Mixed hyperlipidemia; E11.65 Type 2 diabetes mellitus with hyperglycemia; N39.0 Urinary tract infection, site not specified
CPT/HCPCS: 36415; 80053; 80061; 81001; 82043; 82550; 83036; 84550; 85025

== ENCOUNTER 2022-10-29 09:14 | Outpatient (CLI) | payer MEDICARE, SELFPAY ==
--- NOTE | ~2022-10-29 | XR_ITS ---
Clinical Indication: Hypertension, smoking history PA and lateral views of the chest: Comparison: 01/18/2020 Findings: The lungs are clear, without evidence of focal consolidation or pleural effusion. Cardiome diastinal silhouette is within normal limits. DISH of the thoracic spine noted. Impression: Clear lungs. Reviewed, dictated and finalized at location . Impression: Clear lungs.
== END 2022-10-29 09:15 | disposition home or self-care (01) ==
LOC: CHSIMG 09:16
PROVIDERS: PCP Internal Medicine; Visit Provider Internal Medicine
DX: I10 Essential (primary) hypertension (principal)
CPT/HCPCS: 71046

== ENCOUNTER 2023-03-10 07:08 | Outpatient (CLI) | payer MEDICARE, SELFPAY ==
[2023-03-10 07:23] LABS: Basophils Absolute Auto 0.08 K/mm3 (0.00-0.10); Basophils Percent Auto 1.1 % (0.0-1.0); Eosinophils Absolute Auto 0.13 K/mm3 (0.02-0.50); Eosinophils Percent Auto 1.9 % (1.0-6.0); Hematocrit 49.4 % (37.0-46.0); Hemoglobin 16.3 g/dL (12.4-15.3); Immature Granulocyte Absolute 0.08 K/mm3 (0.00-0.00); Immature Granulocyte Percent A 1.1 % (0.0-0.0); Lymphocytes Absolute Auto 1.57 K/mm3 (1.10-4.50); Lymphocytes Percent Auto 22.5 % (18.0-42.0); Mean Corpuscular Hemoglobin 32.1 pg (27.0-31.0); Mean Corpuscular Volume 97.2 fL (78.0-102.0); Mean Platelet Volume 9.6 fl (8.7-11.0); Monocytes Absolute Auto 0.64 K/mm3 (0.10-0.90); Monocytes Percent Auto 9.2 % (2.0-11.0); Neutrophils Absolute Auto 4.5 K/mm3 (1.7-7.2); Neutrophils Percent Auto 64.2 % (50.0-70.0); Platelet Count Result 300 K/mm3 (150-420); Red Blood Count 5.08 M/mm3 (4.70-6.10)
[2023-03-10 07:24] LABS: Appearance Urine Clear (Clear); Bilirubin Urine Negative (Negative); Color Urine Light Yellow (Yellow); Glucose Urine UA 3+ (Negative); Ketones Urine Negative (Negative); Leukocyte Esterase Ur Negative (Negative); Nitrate Urine Negative (Negative); Protein Urine Negative (Negative); Urobilinogen Urine 0.2 mg/dL (0.2-1.0)
[2023-03-10 07:31] LABS: Creatinine Urine 62.33 mg/dL (40-278); MALB Creatinine Ratio 20.8 mg/g (0-30); Microalbumin Urine Random < 13.0 mg/L
[2023-03-10 07:37] LABS: Add Urine Microscopic? YES; Bacteria Urine None seen /hpf; Blood Urine Trace-lysed (Negative); RBC Urine None seen /hpf (0-2); WBC Urine None seen /hpf (0-3)
[2023-03-10 08:20] LABS: Alanine Aminotransferase 30 U/L (16-63); Albumin Level 4.2 g/dL (3.4-5.0); Alkaline Phosphatase 49 U/L (46-116); Anion Gap 10 mmol/L (8-16); Aspartate Amino Transferase 19 U/L (15-37); Bilirubin,Total 0.5 mg/dL (0.00-1.00); Blood Urea Nitrogen 27 mg/dL (7-18); Calcium 9.8 mg/dL (8.5-10.1); Carbon Dioxide 27 mmol/L (21-32); Chloride 104 mmol/L (98-108); Cholesterol 199 mg/dL (0-200); Estimated Glomerular Filt Rate 57; Glucose 159 mg/dL (70-99); HDL Direct 46 mg/dL (40-60); LDL Cholesterol Calculated 85 mg/dL (<130); Osmolality Calculated 300 mOsm/kg (285-295); Potassium 4.6 mmol/L (3.5-5.1); Prostate Specific Antigen 0.4 ng/mL (< OR = 4.0); Sodium 141 mmol/L (136-145); Total Protein 7.2 g/dL (6.4-8.2); Triglycerides 342 mg/dL (0-150)
[2023-03-10 08:21] LABS: Vitamin B12 938 pg/mL (193-986)
[2023-03-10 08:22] LABS: Folic Acid > 20.0 ng/mL (8.6->20)
[2023-03-13 07:24] LABS: C-Peptide 3.26 ng/mL (0.80-3.85)
[2023-03-13 14:47] LABS: Fructosamine 265 umol/L (205-285)
== END 2023-03-10 07:09 | disposition home or self-care (01) ==
LOC: CHSLAB 07:12
PROVIDERS: PCP Internal Medicine
DX: E79.0 Hyperuricemia without signs of inflammatory arthritis and tophaceous disease (principal); I10 Essential (primary) hypertension; E78.2 Mixed hyperlipidemia; E11.65 Type 2 diabetes mellitus with hyperglycemia; Z12.5 Encounter for screening for malignant neoplasm of prostate
CPT/HCPCS: 36415; 80053; 80061; 81001; 82043; 82607; 82746; 82985; 83036; 84153; 84550; 84681; 85025; G0103

== ENCOUNTER 2023-09-05 07:03 | Outpatient (CLI) | payer MEDICARE, SELFPAY ==
[2023-09-05 07:22] LABS: Appearance Urine Clear (Clear); Basophils Absolute Auto 0.06 K/mm3 (0.00-0.10); Basophils Percent Auto 1.1 % (0.0-1.0); Bilirubin Urine Negative (Negative); Blood Urine Trace-Intact (Negative); Color Urine Light Yellow (Yellow); Eosinophils Absolute Auto 0.07 K/mm3 (0.02-0.50); Eosinophils Percent Auto 1.3 % (1.0-6.0); Glucose Urine UA 3+ (Negative); Hematocrit 48.8 % (37.0-46.0); Hemoglobin 16.4 g/dL (12.4-15.3); Immature Granulocyte Absolute 0.04 K/mm3 (0.00-0.00); Immature Granulocyte Percent A 0.7 % (0.0-0.0); Ketones Urine Negative (Negative); Leukocyte Esterase Ur Negative (Negative); Lymphocytes Absolute Auto 1.25 K/mm3 (1.10-4.50); Lymphocytes Percent Auto 23.4 % (18.0-42.0); Mean Corpuscular HGB Conc 33.6 g/dL (32.0-36.0); Mean Corpuscular Hemoglobin 31.7 pg (27.0-31.0); Mean Corpuscular Volume 94.2 fL (78.0-102.0); Monocytes Absolute Auto 0.61 K/mm3 (0.10-0.90); Monocytes Percent Auto 11.4 % (2.0-11.0); Neutrophils Absolute Auto 3.3 K/mm3 (1.7-7.2); Neutrophils Percent Auto 62.1 % (50.0-70.0); Nitrate Urine Negative (Negative); Platelet Count Result 272 K/mm3 (150-420); Protein Urine Negative (Negative); Red Blood Count 5.18 M/mm3 (4.70-6.10); Red Cell Distribution Width 12.3 % (11.6-14.4); Specific Grav Ur 1.015 (1.010-1.020); Urobilinogen Urine 0.2 mg/dL (0.2-1.0); White Blood Count 5.4 K/mm3 (4.8-10.8); pH Urine 6.5 (5.0-8.0)
[2023-09-05 07:28] LABS: Add Urine Microscopic? YES; Bacteria Urine None seen /hpf; RBC Urine None seen /hpf (0-2); WBC Urine None seen /hpf (0-3)
[2023-09-05 07:31] LABS: Creatinine Urine 54.82 mg/dL (40-278); MALB Creatinine Ratio 23.7 mg/g (0-30); Microalbumin Urine Random < 13.0 mg/L
[2023-09-05 07:33] LABS: Hemoglobin A1C 7.1 % (<5.7)
[2023-09-05 08:52] LABS: Alanine Aminotransferase 52 U/L (16-63); Albumin Level 4.4 g/dL (3.4-5.0); Alkaline Phosphatase 40 U/L (46-116); Anion Gap 9 mmol/L (8-16); Aspartate Amino Transferase 36 U/L (15-37); Bilirubin,Total 0.7 mg/dL (0.00-1.00); Blood Urea Nitrogen 21 mg/dL (7-18); Calcium 9.2 mg/dL (8.5-10.1); Carbon Dioxide 31 mmol/L (21-32); Chloride 99 mmol/L (98-108); Cholesterol 179 mg/dL (0-200); Creatine Kinase 161 U/L (39-308); Estimated Glomerular Filt Rate 58; Glucose 154 mg/dL (70-99); HDL Direct 61 mg/dL (40-60); LDL Cholesterol Calculated 83 mg/dL (<130); Osmolality Calculated 294 mOsm/kg (285-295); Potassium 4.5 mmol/L (3.5-5.1); Sodium 139 mmol/L (136-145); Total Protein 7.6 g/dL (6.4-8.2); Triglycerides 176 mg/dL (0-150); Uric Acid 5.4 mg/dL (3.5-7.2); Vitamin B12 741 pg/mL (193-986)
[2023-09-05 09:21] LABS: Folic Acid > 20.0 ng/mL (8.6->20)
[2023-09-10 11:46] LABS: Fructosamine 282 umol/L (205-285)
== END 2023-09-05 07:04 | disposition home or self-care (01) ==
LOC: CHSLAB 07:09
PROVIDERS: PCP Internal Medicine
DX: E11.65 Type 2 diabetes mellitus with hyperglycemia (principal); E55.9 Vitamin D deficiency, unspecified; E78.5 Hyperlipidemia, unspecified; I10 Essential (primary) hypertension
CPT/HCPCS: 36415; 80053; 80061; 81001; 82043; 82550; 82607; 82746; 82985; 83036; 84550; 85025

== ENCOUNTER 2024-03-25 07:12 | Outpatient (CLI) | payer MEDICARE, SELFPAY ==
[2024-03-25 07:27] LABS: Basophils Absolute Auto 0.06 K/mm3 (0.00-0.10); Basophils Percent Auto 1.1 % (0.0-1.0); Eosinophils Absolute Auto 0.09 K/mm3 (0.02-0.50); Eosinophils Percent Auto 1.7 % (1.0-6.0); Hematocrit 46.6 % (37.0-46.0); Hemoglobin 15.5 g/dL (12.4-15.3); Immature Granulocyte Absolute 0.04 K/mm3 (0.00-0.00); Immature Granulocyte Percent A 0.7 % (0.0-0.0); Lymphocytes Absolute Auto 1.31 K/mm3 (1.10-4.50); Lymphocytes Percent Auto 24.4 % (18.0-42.0); Mean Corpuscular HGB Conc 33.3 g/dL (32-36); Mean Corpuscular Hemoglobin 31.3 pg (27.0-31.0); Mean Platelet Volume 9.5 fl (8.7-11.0); Monocytes Percent Auto 11.2 % (2.0-11.0); Neutrophils Absolute Auto 3.27 K/mm3 (1.70-7.20); Neutrophils Percent Auto 60.9 % (50.0-70.0); Platelet Count Result 275 K/mm3 (150-420); Red Blood Count 4.96 M/mm3 (4.70-6.10); Red Cell Distribution Width 11.9 % (11.6-14.4); White Blood Count 5.4 K/mm3 (4.8-10.8)
[2024-03-25 07:28] LABS: Add Urine Microscopic? NO; Appearance Urine Clear (Clear); Bilirubin Urine Negative (Negative); Blood Urine Trace-intact (Negative); Color Urine Light Yellow (Yellow); Glucose Urine UA 3+ (Negative); Ketones Urine Negative (Negative); Leukocyte Esterase Ur Negative (Negative); Nitrate Urine Negative (Negative); Protein Urine Negative (Negative); Specific Grav Ur 1.015 (1.010-1.020); Urobilinogen Urine 0.2 mg/dL (0.2-1.0); pH Urine 6.5 (5.0-8.0)
[2024-03-25 07:36] LABS: Hemoglobin A1C 7.4 % (<5.7)
[2024-03-25 08:42] LABS: Alanine Aminotransferase 39 U/L (16-63); Albumin Level 3.8 g/dL (3.4-5.0); Alkaline Phosphatase 46 U/L (46-116); Anion Gap 8 mmol/L (4-12); Aspartate Amino Transferase 27 U/L (15-37); Bilirubin,Total 0.4 mg/dL (0.00-1.00); Blood Urea Nitrogen 17 mg/dL (7-18); Calcium 8.8 mg/dL (8.5-10.1); Carbon Dioxide 30 mmol/L (21-32); Chloride 103 mmol/L (98-108); Cholesterol 194 mg/dL (0-200); Creatine Kinase 95 U/L (39-308); Estimated Glomerular Filt Rate > 60; Glucose 158 mg/dL (70-99); HDL Direct 43 mg/dL (40-60); LDL Cholesterol Calculated 81 mg/dL (<130); Osmolality Calculated 296 mOsm/kg (285-295); Potassium 4.5 mmol/L (3.5-5.1); Prostate Specific Antigen 0.4 ng/mL (< OR = 4.0); Sodium 141 mmol/L (136-145); Triglycerides 348 mg/dL (0-150); Uric Acid 5.1 mg/dL (3.5-7.2)
== END 2024-03-25 07:13 | disposition home or self-care (01) ==
LOC: CHSLAB 07:15
PROVIDERS: PCP Internal Medicine; Visit Provider Internal Medicine
DX: E78.2 Mixed hyperlipidemia (principal); I10 Essential (primary) hypertension; E11.65 Type 2 diabetes mellitus with hyperglycemia; E79.0 Hyperuricemia without signs of inflammatory arthritis and tophaceous disease; Z12.5 Encounter for screening for malignant neoplasm of prostate
CPT/HCPCS: 36415; 80053; 80061; 81003; 82550; 83036; 84153; 84550; 85025; G0103

== ENCOUNTER 2024-07-10 07:07 | Outpatient (CLI) | payer MEDICARE, SELFPAY ==
[2024-07-10 08:06] LABS: Anion Gap 11 mmol/L (4-12); Blood Urea Nitrogen 13 mg/dL (7-18); Calcium 9.9 mg/dL (8.5-10.1); Carbon Dioxide 30 mmol/L (21-32); Chloride 100 mmol/L (98-108); Estimated Glomerular Filt Rate 57; Glucose 140 mg/dL (70-99); Osmolality Calculated 294 mOsm/kg (285-295); Potassium 4.5 mmol/L (3.5-5.1); Sodium 141 mmol/L (136-145)
[2024-07-10 08:08] LABS: Hemoglobin A1C 6.3 % (<5.7)
== END 2024-07-10 07:08 | disposition home or self-care (01) ==
LOC: CHSLAB 07:10
PROVIDERS: PCP Internal Medicine; Visit Provider Internal Medicine
DX: E11.65 Type 2 diabetes mellitus with hyperglycemia (principal)
CPT/HCPCS: 36415; 80048; 83036

== ENCOUNTER 2024-10-11 07:02 | Outpatient (CLI) | payer MEDICARE, SELFPAY ==
--- OUTSIDE RECORDS SUMMARY | 2024-10-11 07:07 | XMS_ITS ---
Author Organization [facility] Address [address] [place], [place] [id number] Care Team Providers Care Home Assessment Nurse Name Role Phone MARIANELA LOBATO Unavailable [phone] Marva Day Unavailable Unavailable JEFFRY SESAY Unavailable [phone] REASON FOR VISIT *General care Medications Medication SIG (Take, Route, Frequency, Duration) Notes Start Date End Date Status aspirin 81 MG Delayed Release Oral Tablet [Aspir-Low] ORAL aspirin 81 MG Delayed Releas e Oral Tablet [Aspir-Low]Original Medicationaspirin 81 MG Delayed Release Oral Tablet [Aspir-Low] *Reorder from [employer] for eRx and Interaction Alerts* 020 Active Fenofibrate 120 MG Oral Tablet ORAL fenofibrate 120 MG Oral TabletOriginal Medicationfenofibrate 120 MG Oral Tablet *Reorder from [employer] for eRx and Interaction Alerts* 020 Active Glimepiride 4 MG Oral Tablet ORAL glimepiride 4 MG Oral TabletOriginal Medicationglimepiride 4 MG Oral Tablet *Reorder from [employer] for eRx and Interaction Alerts* 020 Active Synjardy 12.5-1000 MG 1 tablet with meals Orally Twice a day Active sitagliptin 50 MG Oral Tablet [Junuvia] ORAL sitagliptin 50 MG Oral Table t [Junuvia]Original Medicationsitagliptin 50 MG Oral Tablet [Junuvia] *Reorder from [employer] for eRx and Interaction Alerts* 020 Active metformin hydrochloride 500 MG Oral Tablet ORAL metformin hydrochloride 500 MG Oral TabletOriginal Medicationmetformin hydrochloride 500 MG Oral Tablet *Reorder from [employer] for eRx and Interaction Alerts* Active hydrochlorothiazide 25 MG / losartan potassium 100 MG Oral Tablet ORAL hydrochlorothiazide 25 MG / losartan potassium 100 MG Oral TabletOriginal Medicationhydrochlorothiazide 25 MG / losartan potassium 100 MG Oral Tablet *Reorder from [facility] for eRx and Interaction Alerts* Active atorvastatin 40 MG Oral Tablet ORAL atorvastatin 40 MG Oral TabletOriginal Medicationatorvastatin 40 MG Oral Tablet *Reorder from [facility] for eRx and Interaction Alerts* 020 Active Encounters Encounter Location Date Provider Diagnosis [address] [place], [place] [id number] 06/10/2024 JEFFRY SESAY Other hammer toe(s) (acquired), right foot M20.41 ; Tinea unguium B35.1 ; Other hammer toe(s) (acquired), left foot M20.42 ; Pain in right toe(s) M79.674 ; Pain in left toe(s) M79.675 ; Unspecified atherosclerosis of [place] arteries of extremities, bilateral legs I70.203 and [...] (ICD-10 - M79.675) 06/10/2024 Unspecified atherosclerosis of [place] arteries of extremities, bilateral legs (ICD-10 - [...] OTC and prescription treatments. Unspecified atherosclerosis of [place] arteries of extremities, bilateral legs Patient educated [...] Up: 3 Months, Reason: Provider Name:KAREN RAMOS, 10/21/2024 09:10:00 AM, [address] [place] [address], [phone], Progress Notes * MORE LUCIO EDOB:1955 (69 yo M)Acc No.[id number]:06/10/2024 Patient: MORE ANDERSON Provider: Marielle SESAY :1955 A ge:68 Y S ex:Male Date:06/10/2024 Address:[address] [place] [address] Subjective: * Chief Complaints: * 1 . [...] seen by Dr. Day was 03/2024., Initials [facility]. * ROS: G eneral / Constitutional: Patient denies w eakness. R espiratory: Patient denies c hronic cough, shortness of breath, sputum production. C ardiovascular: Patient denies c hest pain, history of [place], irregular heartbeat. M usculoskeletal: Patient complains of [...] Medicationglimepiride 4 MG Oral Tablet *Reorder from [employer] for eRx and Interaction Alerts*, Taking Fenofibrate 120 MG Oral Tablet ORAL , Notes to Pharmacist: fenofibrate 120 MG Oral TabletOriginal Medicationfenofibrate 120 MG Oral Tablet *Reorder from [employer] for eRx and Interaction Alerts*, Taking aspirin 81 MG Delayed Release Oral Tablet [Aspir-Low] ORAL , Notes to Pharmacist: aspirin 81 MG Delayed Release Oral Tablet [Aspir-Low]Original Medicationaspirin 81 MG Delayed Release Oral Tablet [Aspir-Low] *Re[facility] from [facility] for eRx and Interaction Alerts*, Taking atorvastatin 40 MG Oral Tablet ORAL , Notes to Pharmacist: atorvastatin 40 MG Oral TabletOriginal Medicationatorvastatin 40 MG Oral Tablet *Reorder from [facility] for eRx and Interaction Alerts*, Taking hydrochlorothiazide 25 MG / losartan potassium 100 MG Oral Tablet ORAL , Notes to Pharmacist: hydrochlorothiazide 25 MG / losartan potassium 100 MG Oral TabletOriginal Medicationhydrochlorothiazide 25 MG / losartan potassium 100 MG Oral Tablet *Reorder from [facility] for eRx and Interaction Alerts*, Taking metformin hydrochloride 500 MG Oral Tablet ORAL , Notes to Pharmacist: metformin hydrochloride 500 MG Oral TabletOriginal Medicationmetformin hydrochloride 500 MG Oral Tablet *Reorder from [facility] for eRx and Interaction Alerts*, Taking sitagliptin 50 MG Oral Tablet [ia] ORAL , Notes to Pharmacist: sitagliptin 50 MG Oral Tablet []Original Medicationsitagliptin 50 MG Oral Tablet [] *Reorder from [facility] for eRx and Interaction Alerts* Objective: * [...] M79.675 6 . U nspecified atherosclerosis of [place] arteries of extremities, bilateral legs - I70.203 [...] were emphasized. 3. U nspecified atherosclerosis of [place] arteries of extremities, bilateral legs Notes: Patient [...] Months * Billing Information: * Visit Code: 05977 Office Visit, Est Pt., Level 3. * Procedure Codes: * Electronic signature of GT SESAY DPM on 10/11/2024 at 07:07 AM CDT Sign off status: Pending * Provider: Marielle SESAY Date: 1 08/11/2023 Generated for Tray clancy/Elke/Johana on: 0 10/11/2024 07:07 AM CDT History and Physical Notes * [...]
--- OUTSIDE RECORDS SUMMARY | 2024-10-11 07:07 | XMS_ITS | Referral Summary ---
Author Organization [facility] [address] [facility] [address] Address [address] [place] [address] Care Team Providers Care Day Habilitation Supervisor Name Role Phone Jeff Sanchez MD Primary Care Provider [phone] Allergies No known active allergies Medications aspirin 81 mg enteric coated tablet Take 81 mg by mouth daily Active atorvastatin (LIPITOR) 40 mg tablet Take 40 mg by mouth daily Active coenzyme Q10 10 mg capsule Take 10 mg by mouth daily Active betamethasone, augmented, (DIPROLENE) 0.05 % ointment Apply topically 2 (two) times a day Active fenofibrate nanocrystallized (TRICOR) 145 mg tablet Take 145 mg by mouth daily Active glimepiride (AMARYL) 4 mg tablet Take 4 mg by mouth daily before breakfast Active empagliflozin (JARDIANCE) 25 mg tablet 25 mg Active losartan (COZAAR) 100 mg tablet Take 100 mg by mouth daily Active losartan-hydrochloro thiazide (HYZAAR) 100-25 mg per tablet Take 1 tablet by mouth daily Active clotrimazole 1 % cream Apply topically 2 (two) times a day Active magnesium oxide 400 mg magnesium capsule Take by mouth Active metFORMIN (GLUCOPHAGE) 500 mg tablet Take 500 mg by mouth 2 (two) times a day with meals Active cholecalciferol (VITAMIN D-3) 400 unit capsule Active acetaminophen (TYLENOL) 325 mg tablet Take 650 mg by mouth every 6 (six) hours as needed for pain Active triamcinolone (KENALOG) 0.1 % cream 09/28/19 21 Active Active Problems Problem Noted Date Diagnosed Date Mixed hyperlipidemia 01/24/2021 Essential hypertension 01/22/2021 Alcoholism 01/22/2021 Preop cardiovascular exam 01/22/2021 Social History Tobacco Use Types Packs/Day Years Used Date Smoking Tobacco: Former Smokeless Tobacco: Never Personal Safety Answer Date Recorded Getting School Help Needed Not on file 09/12 Sex and Gender Information Value Date Recorded Sex Assigned at Not on file Legal Sex Male 6:31 PM [employer] Gender Identity Not on file Sexual Orientation Not on file Last Filed Vital Signs Vital Sign Reading Time Taken Comments Blood Pressure 130/72 01/22/2021 11:53 AM CDT Pulse 94 01/22/2021 11:53 AM CDT Temperature - - Respiratory Rate - - Oxygen Saturation 98% 01/22/2021 11:53 AM CDT Inhaled Oxygen Concentration - - Weight 98.9 kg (218 lb) 01/22/2021 11:53 AM CDT Height 175.3 cm (5' 9 ) 01/22/2021 11:53 AM CDT Body Mass Index 32.19 01/22/2021 11:53 AM CDT Plan of Treatment Not on file Insurance [facility] MEDICARE [facility]ANT[facility]IC[facility] Address: [facility] [address] [place] [address] Care Teams Day Habilitation Supervisor Relationship Specialty Start Date End Date Jeff Sanchez MD [address] [place] [address] PCP - General Orthopedic Surgery 12/25/20
--- OUTSIDE RECORDS SUMMARY | 2024-10-11 07:07 | XMS_ITS | Patient Health Record ---
Author Organization [facility] Address [address] [place], [place] [id number] Care Team Providers Care Manager Cardiology Name Role Phone MARIANELA LOBATO Unavailable [phone] Marva Day Unavailable Unavailable JEFFRY SESAY Unavailable [phone] Allergies No Known Allergies Reason For Referral No Information Medications Medication SIG (Take, Route, Frequency, Duration) Notes Start Date End Date Status sitagliptin 50 MG Oral Tablet [ia] ORAL sitagliptin 50 MG Oral Table t []Original Medicationsitagliptin 50 MG Oral Tablet [] *Reorder from [employer] for eRx and Interaction Alerts* 020 Active metformin hydrochloride 500 MG Oral Tablet ORAL metformin hydrochloride 500 MG Oral TabletOriginal Medicationmetformin hydrochloride 500 MG Oral Tablet *Reorder from [employer] for eRx and Interaction Alerts* 020 Active atorvastatin 40 MG Oral Tablet ORAL atorvastatin 40 MG Oral TabletOriginal Medicationatorvastatin 40 MG Oral Tablet *Reorder from [employer] for eRx and Interaction Alerts* 020 Active hydrochlorothiazide 25 MG / losartan potassium 100 MG Oral Tablet ORAL hydrochlorothiazide 25 MG / losartan potassium 100 MG Oral TabletOriginal Medicationhydrochlorothiazide 25 MG / losartan potassium 100 MG Oral Tablet *Reorder from [employer] for eRx and Interaction Alerts* 020 Active Fenofibrate 120 MG Oral Tablet ORAL fenofibrate 120 MG Oral TabletOriginal Medicationfenofibrate 120 MG Oral Tablet *Reorder from [employer] for eRx and Interaction Alerts* 01/13/2 020 Active aspirin 81 MG Delayed Release Oral Tablet [Aspir-Low] ORAL aspirin 81 MG Delayed Releas e Oral Tablet [Aspir-Low]Original Medicationaspirin 81 MG Delayed Release Oral Tablet [Aspir-Low] *Reorder from [facility] for eRx and Interaction Alerts* Active Synjardy 12.5-1000 MG 1 tablet with meals Orally Twice a day Active Glimepiride 4 MG Oral Tablet ORAL glimepiride 4 MG Oral TabletOriginal Medicationglimepiride 4 MG Oral Tablet *Reorder from [facility] for eRx and Interaction Alerts* Active Immunizations Vaccine Route Administration Date Status Comme nts Influenza, high dose seasonal Unknown 04/14/2023 Admini stered Vital Signs Height-cm 177.80 cm 11/20/2023 Weight-kg 108.86 kg 11/20/2023 Height 70.00 in 11/20/2023 Weight 240 lbs 11/20/2023 BMI 34.43 kg/m2 11/20/2023 Encounters Encounter Location Date Provider Diagnosis [address] [id number] 06/10/2024 JEFFRY SESAY Other hammer toe(s) (acquired), right foot M20.41 ; Tinea unguium B35.1 ; Other hammer toe(s) (acquired), left foot M20.42 ; Pain in right toe(s) M79.674 ; Pain in left toe(s) M79.675 ; Unspecified atherosclerosis of [place] arteries of extremities, bilateral legs I70.203 and Type 2 diabetes mellitus with diabetic peripheral angiopathy without gangrene E11.[address] [id number] 11/20/2023 JEFFRY SESAY Other hammer toe(s) (acquired), right foot M20.41 ; Tinea unguium B35.1 ; Other hammer toe(s) (acquired), left foot M20.42 ; Pain in right toe(s) M79.674 ; Pain in left toe(s) M79.675 ; Unspecified atherosclerosis of [place] arteries of extremities, bilateral legs I70.203 and Type 2 diabetes mellitus with diabetic peripheral angiopathy without gangrene E11.51 [facility] [address] [place], [place] [id number] 01/22/2024 JEFFRY SESAY Other hammer toe(s) (acquired), right foot M20.41 ; Tinea unguium B35.1 ; Other hammer toe(s) (acquired), left foot M20.42 ; Pain in right toe(s) M79.674 ; Pain in left toe(s) M79.675 ; Unspecified atherosclerosis of [place] arteries of extremities, bilateral legs I70.203 and Type 2 diabetes mellitus with diabetic peripheral angiopathy without gangrene E11.[address] [id number] 03/25/2024 JEFFRY SESAY Other hammer toe(s) (acquired), right foot M20.41 ; Tinea unguium B35.1 ; Other hammer toe(s) (acquired), left foot M20.42 ; Pain in right toe(s) M79.674 ; Pain in left toe(s) M79.675 ; Unspecified atherosclerosis of [place] arteries of extremities, bilateral legs I70.203 and Type 2 diabetes mellitus with diabetic peripheral angiopathy without gangrene E11.[address] [id number] 08/19/2024 MARIANELA LOBATO Tinea unguium B35.1 ; Pain in right toe(s) M79.674 ; Pain in left toe(s) M79.675 and Atherosclerosis of zuni arteries of extremities with intermittent claudication, bilateral legs I70.213 Assessments Encounter Date Diagnosis (ICD Code) Assessment Notes Treatment Notes Treatment Clinical Notes Section Notes 11/20/2023 Tinea unguium (ICD-10 - B35.1) Aseptic debridement [...] educated regarding both OTC and prescription treatments. 11/20/2023 Other hammer toe(s) (acquired), right foot (ICD-10 [...] were discussed, but conservative options were emphasized. 01/22/2024 Other hammer toe(s) (acquired), right foot (ICD-10 [...] were discussed, but conservative options were emphasized. 01/22/2024 Tinea unguium (ICD-10 - B35.1) Aseptic debridement [...] educated regarding both OTC and prescription treatments. 03/25/2024 Tinea unguium (ICD-10 - B35.1) Aseptic debridement [...] educated regarding both OTC and prescription treatments. 03/25/2024 Other hammer toe(s) (acquired), right foot (ICD-10 [...] prescription treatments. 06/10/2024 Other hammer toe(s) (acquired), right foot [...] were discussed, but conservative options were emphasized. 08/19/2024 Tinea unguium (ICD-10 - B35.1) FUNGAL TOENAILS: Discussed various treatment options for fungal toenails including debridement, topical antifungals, oral antifungals, toenail avulsion, or toenail matrixectomy. NAIL DEBRIDEMENT: Nails 1-5 Bilateral were debrided extensively with nail nippers and emery board, reducing length and girth to pink healthy tissue with any subungual debris and necrotic tissue removed 08/19/2024 Pain in right toe(s) (ICD-10 - M79.674) 08/19/2024 Pain in left toe(s) (ICD-10 - M79.675) 06/10/2024 Other hammer toe(s) (acquired), left foot (ICD-10 - M20.42) 03/25/2024 Other hammer toe(s) (acquired), left foot (ICD-10 - M20.42) 01/22/2024 Other hammer toe(s) (acquired), left foot (ICD-10 - M20.42) 11/20/2023 Other hammer toe(s) (acquired), left foot (ICD-10 - M20.42) 11/20/2023 Pain in right toe(s) (ICD-10 - M79.674) 01/22/2024 Pain in right toe(s) (ICD-10 - M79.674) 03/25/2024 Pain in right toe(s) (ICD-10 - M79.674) 06/10/2024 Pain in right toe(s) (ICD-10 - M79.674) 08/19/2024 Atherosclerosis of zuni arteries of extremities with intermittent claudication, bilateral legs (ICD-10 - I70.213) 06/10/2024 Pain in left toe(s) (ICD-10 - M79.675) 03/25/2024 Pain in left toe(s) (ICD-10 - M79.675) 01/22/2024 Pain in left toe(s) (ICD-10 - M79.675) 11/20/2023 Pain in left toe(s) (ICD-10 - M79.675) 11/20/2023 Unspecified atherosclerosis of z[place] arteries of extremities, bilateral legs (ICD-10 - I70.203) Patient educated on risks and aggravating factors of PVD, including conservative treatment options such as a diet and exercise regimen to aid in slowing progression of vascular disease 01/22/2024 Unspecified atherosclerosis of [place] arteries of extremities, bilateral legs (ICD-10 - I70.203) Patient educated on risks and aggravating factors of PVD, including conservative treatment options such as a diet and exercise regimen to aid in slowing progression of vascular disease 03/25/2024 Unspecified atherosclerosis of [place] arteries of extremities, bilateral legs (ICD-10 - I70.203) Patient educated on risks and aggravating factors of PVD, including conservative treatment options such as a diet and exercise regimen to aid in slowing progression of vascular disease 06/10/2024 Unspecified atherosclerosis of [place] arteries of extremities, bilateral legs (ICD-10 - [...] but not limited to nausea, vomiting, fever. 03/25/2024 Type 2 diabetes mellitus with diabetic peripheral [...] but not limited to nausea, vomiting, fever. 01/22/2024 Type 2 diabetes mellitus with diabetic peripheral [...] but not limited to nausea, vomiting, fever. 11/20/2023 Type 2 diabetes mellitus with diabetic peripheral [...] to nausea, vomiting, fever. Plan Of Treatment Next Appt Details Provider Name:KAREN RAMOS, 10/21/2024 09:10:00 AM, [address] [place] [address], [id number], Insurance Providers Payer Name Payer Address Payer Phone Subscriber Number Group Number Insured Name Patient Relationship to Insured Coverage Start Date Coverage End Date [employer] [address] [place] [phone] [id number] MORE LUCIO Self - patient is the insured
--- OUTSIDE RECORDS SUMMARY | 2024-10-11 07:07 | XMS_ITS | Clinical Summary ---
Author Organization [facility] [address] [facility] 162 Address [address] [place] [address] Care Team Providers Care Government Gauger Name Role Phone Jeff Sanchez MD Primary Care Provider [phone] Allergies No known active allergies Medications aspirin [...] 01/22/2021 Alcoholism 01/22/2021 Preop cardiovascular exam 01/22/2021 Surgical History Surgery Date Site/Laterality Comments KNEE SURGERY HIP SURGERY APPENDECTOMY Medical History Medical History Date Comments Hypertension Hyperlipidemia Diabetes mellitus (HCC) Pneumonia Eczema Family History Medical History Relation Name Comments No Known Problems Brother Dementia Father Liver cancer Mother Relation Name Status Comments Brother Alive Father (Age 90) Mother (Age 89) Social History Tobacco Use Types Packs/Day Years Used Date Smoking Tobacco: Former Smokeless Tobacco: Never Personal Safety Answer Date Recorded Getting School Help Needed Not on file 09/12 Sex and Gender Information Value Date Recorded Sex Assigned at Not on file Legal Sex Male 6:31 PM [employer] Gender Identity Not on file Sexual Orientation Not on file Obstetrics History Last Filed Vital Signs Vital Sign Reading [...] Plan of Treatment Not on file Insurance [facility] [place] [address] Care Teams Government Gauger Relationship Specialty Start Date End Date Jeff Sanchez MD [address] [place] [address] PCP - General Orthopedic Surgery 12/25/20
--- OUTSIDE RECORDS SUMMARY | 2024-10-11 07:07 | XMS_ITS ---
Author Organization [facility] Address [address] [place], [place] [id number] Care Team Providers Care State Superintendent Of Schools Name Role Phone MARIANELA LOBATO Unavailable [phone] Marva Day Unavailable Unavailable JEFFRY SESAY Unavailable [phone] REASON FOR VISIT *General care Medications Medication SIG (Take, Route, Frequency, Duration) Notes Start Date End Date Status Synjardy 12.5-1000 MG 1 tablet with meals Orally Twice a day Active Glimepiride 4 MG Oral Tablet ORAL glimepiride 4 MG Oral TabletOriginal Medicationglimepiride 4 MG Oral Tablet *Reorder from [employer] for eRx and Interaction Alerts* 020 Active metformin hydrochloride 500 MG Oral Tablet ORAL metformin hydrochloride 500 MG Oral TabletOriginal Medicationmetformin hydrochloride 500 MG Oral Tablet *Reorder from [employer] for eRx and Interaction Alerts* 020 Active sitagliptin 50 MG Oral Tablet [Junuvia] ORAL sitagliptin 50 MG Oral Table t []Original Medicationsitagliptin 50 MG Oral Tablet [] *Reorder from [employer] for eRx and Interaction Alerts* 020 Active hydrochlorothiazide 25 MG / losartan potassium 100 MG Oral Tablet ORAL hydrochlorothiazide 25 MG / losartan potassium 100 MG Oral TabletOriginal Medicationhydrochlorothiazide 25 MG / losartan potassium 100 MG Oral Tablet *Reorder from [employer] for eRx and Interaction Alerts* 020 Active Fenofibrate 120 MG Oral Tablet ORAL fenofibrate 120 MG Oral TabletOriginal Medicationfenofibrate 120 MG Oral Tablet *Reorder from [facility] for eRx and Interaction Alerts* Active aspirin 81 MG Delayed Release Oral Tablet [Aspir-Low] ORAL aspirin 81 MG Delayed Releas e Oral Tablet [Aspir-Low]Original Medicationaspirin 81 MG Delayed Release Oral Tablet [Aspir-Low] *Reorder from [facility] for eRx and Interaction Alerts* Active atorvastatin 40 MG Oral Tablet ORAL atorvastatin 40 MG Oral TabletOriginal Medicationatorvastatin 40 MG Oral Tablet *Reorder from [facility] for eRx and Interaction Alerts* 020 Active Encounters Encounter Location Date Provider Diagnosis [address] [id number] 03/25/2024 JEFFRY SESAY Other hammer toe(s) (acquired), right foot M20.41 ; Tinea unguium B35.1 ; Other hammer toe(s) (acquired), left foot M20.42 ; Pain in right toe(s) M79.674 ; Pain in left toe(s) M79.675 ; Unspecified atherosclerosis of [place] arteries of extremities, bilateral legs I70.203 and Type 2 diabetes mellitus with diabetic peripheral angiopathy without gangrene E11.51 Assessments Encounter Date Diagnosis (ICD Code) Assessment Notes Treatment Notes Treatment Clinical Notes Section Notes 03/25/2024 Other hammer toe(s) (acquired), right foot [...] were discussed, but conservative options were emphasized. 03/25/2024 Tinea unguium (ICD-10 - B35.1) Aseptic [...] prescription treatments. 03/25/2024 Other hammer toe(s) (acquired), left foot (ICD-10 - M20.42) 03/25/2024 Pain in right toe(s) (ICD-10 - M79.674) 03/25/2024 Pain in left toe(s) (ICD-10 - M79.675) 03/25/2024 Unspecified atherosclerosis of [place] arteries of extremities, bilateral legs (ICD-10 - I70.203) Patient educated on risks and aggravating factors of PVD, including conservative treatment options such as a diet and exercise regimen to aid in slowing progression of vascular disease 03/25/2024 Type 2 diabetes mellitus with diabetic [...] OTC and prescription treatments. Unspecified atherosclerosis of [place] arteries of extremities, bilateral legs Patient educated [...] Reason: Provider Name:KAREN RAMOS, 10/21/2024 09:10:00 AM, [address] [place] [address], [id number], Progress Notes * MORE LUCIO EDOB:1955 (68 yo M)Acc No.[id number]:03/25/2024 Patient: MORE ANDERSON Provider: Marielle SESAY :1955 A ge:68 Y S ex:Male Date:03/25/2024 Address:[address] [place] [address] Subjective: * Chief Complaints: * 1 . [...] Date last seen by Dr. Day was 08/2023., Initials [facility]. * ROS: G eneral / Constitutional: Patient denies w eakness. R espiratory: Patient denies c hronic cough, shortness of breath, sputum production. C ardiovascular: Patient denies c hest pain, history of [place], irregular heartbeat. M usculoskeletal: Patient complains of [...] Medicationglimepiride 4 MG Oral Tablet *Reorder from [employer] for eRx and Interaction Alerts*, Taking Fenofibrate 120 MG Oral Tablet ORAL , Notes to Pharmacist: fenofibrate 120 MG Oral TabletOriginal Medicationfenofibrate 120 MG Oral Tablet *Reorder from [facility] for eRx and Interaction Alerts*, Taking aspirin 81 MG Delayed Release Oral Tablet [Aspir-Low] ORAL , Notes to Pharmacist: aspirin 81 MG Delayed Release Oral Tablet [Aspir-Low]Original Medicationaspirin 81 MG Delayed Release Oral Tablet [Aspir-Low] *Reorder from [facility] for eRx and Interaction Alerts*, Taking atorvastatin 40 MG Oral Tablet ORAL , Notes to Pharmacist: atorvastatin 40 MG Oral TabletOriginal Medicationatorvastatin 40 MG Oral Tablet *Reorder from [facility] for eRx and Interaction Alerts*, Taking hydrochlorothiazide 25 MG / losartan potassium 100 MG Oral Tablet ORAL , Notes to Pharmacist: hydrochlorothiazide 25 MG / losartan potassium 100 MG Oral TabletOriginal Medicationhydrochlorothiazide 25 MG / losartan potassium 100 MG Oral Tablet *Reorder from [facility] for eRx and Interaction Alerts*, Taking metformin hydrochloride 500 MG Oral Tablet ORAL , Notes to Pharmacist: metformin hydrochloride 500 MG Oral TabletOriginal Medicationmetformin hydrochloride 500 MG Oral Tablet *Reorder from [facility] for eRx and Interaction Alerts*, Taking sitagliptin 50 MG Oral Tablet [ia] ORAL , Notes to Pharmacist: sitagliptin 50 MG Oral Tablet []Original Medicationsitagliptin 50 MG Oral Tablet [] *Reorder from [facility] for eRx and Interaction Alerts* Objective: [...] M79.675 6 . U nspecified atherosclerosis of [place] arteries of extremities, bilateral legs - I70.203 [...] were emphasized. 3. U nspecified atherosclerosis of [place] arteries of extremities, bilateral legs Notes: Patient [...] Months * Billing Information: * Visit Code: 78949 Office Visit, Est Pt., Level 3. * Procedure Codes: * Sign off status: Completed true * Provider: Marielle SESAY Date: 0 03/25/2024 Generated for Tray clancy/Elke/Johana on: 0 10/11/2024 [...] Date last seen by Dr. Day was 08/2023., Initials [facility] Examination Category Sub-Category Detail Notes [...]
--- OUTSIDE RECORDS SUMMARY | 2024-10-11 07:08 | XMS_ITS | Clinical Summary ---
Author Organization [facility] Address [facility] [place] [address] Care Team Providers Care Database Analyst Name Role Phone Heidi Day MD Primary Care Provider [phone] Allergies No known active allergies Medications rosuvastatin (CRESTOR) 20 MG tablet Take 1 tablet (20 mg total) by mouth nightly at bedtime. Active losartan 50 MG TABS 100 mg, hydroCHLOROthiazide 12.5 MG CAPS 12.5 mg Take by mouth daily. Active fenofibrate 160 MG tablet Take 1 tablet (160 mg total) by mouth daily. Active tirzepatide (MOUNJARO) 7.5 MG/0.5ML injectionIndications:Di abetes Mellitus Indications: Diabetes Active amLODIPine (NORVASC) 2.5 MG tablet Take 1 tablet (2.5 mg total) by mouth daily. Active Empagliflozin-metFORMIN HCl (SYNJARDY) 12.5-1000 MG Tab Take 12.5 mg by mouth every 12 (twelve) hours. Active acetaminophen (TYLENOL) 325 MG tablet Take 2 tablets (650 mg total) by mouth every 6 (six) hours as needed. Active aspirin EC (ECOTRIN) 81 MG tablet Take 1 tablet (81 mg total) by mouth 3 (three) times a week. Active Dapagliflozin Pro-metFORMIN ER 5-1000 MG TABLET SR 24 HR Take 2 tablets by mouth. 11/26/19 24 Active Active Problems No known active problems Encounters Date Type Department Care Team Description 08/18/2024 1:57 PM NUTRITION ASSISTANT - 08/18/2024 2:24 PM NUTRITION ASSISTANT [facility] [address] [place] [address] [place] [address] Leanne Cade MD extraction cataract LEFT eye with lens implant 08/18/2024 1:39 PM NUTRITION ASSISTANT Anesthesia Event [facility] [address] [place] [address] Edgar Vlad Ramirez, LEAD CARE MANAGER 08/18/2024 12:22 PM NUTRITION ASSISTANT - 08/18/2024 2:16 PM NUTRITION ASSISTANT Hospital Encounter [facility] [address] [place] [address] Leanne Cade MD Discharge Disposition: Home or Self Care (Routine Discharge) 08/18/2024 Travel 08/10/2024 Travel 07/14/2024 1:31 PM NUTRITION ASSISTANT - 07/14/2024 2:02 PM NUTRITION ASSISTANT Surgery [facility] [address] [place] [address] Leanne Cade MD extraction cataract RIGHT eye with lens implant 07/14/2024 1:18 PM NUTRITION ASSISTANT Anesthesia Event [facility] [address] [place] [address] Sterling Rosas, LEAD CARE MANAGER 07/14/2024 12:46 PM NUTRITION ASSISTANT - 07/14/2024 2:07 PM NUTRITION ASSISTANT Hospital Encounter [facility] [address] [facility] [place] [address] Leanne Cade MD Discharge Disposition: Home or Self Care (Routine Discharge) 07/14/2024 Travel from Last 3 Months Social History Tobacco Use Types Packs/Day Years Used Date Smoking Tobacco: Former Cigarettes Smokeless Tobacco: Never Tobacco Cessation:Counseling Given: Not Answered Passive Exposure Comments:27 years ago Alcohol Use Standard Drinks/Week Comments Yes 0 (1 standard drink = 0.6 oz pur e alcohol) daily one or two Sex and Gender Information Value Date Recorded Sex Assigned at Male 07/14/2024 12:39 PM NUTRITION ASSISTANT Legal Sex Male 9:12 AM NUTRITION ASSISTANT Gender Identity Not on file Sexual Orientation Not on file Last Filed Vital Signs Vital Sign Reading Time Taken Comments Blood Pressure 147/67 08/18/2024 2:00 PM NUTRITION ASSISTANT Pulse 86 08/18/2024 2:00 PM NUTRITION ASSISTANT Temperature 37 C (98.6 F) 08/18/2024 2:00 PM NUTRITION ASSISTANT Respiratory Rate 16 08/18/2024 2:00 PM NUTRITION ASSISTANT Oxygen Saturation 99% 08/18/2024 2:00 PM NUTRITION ASSISTANT Inhaled Oxygen Concentration - - Weight 91.6 kg (202 lb) 08/10/2024 2:24 PM NUTRITION ASSISTANT Height 177.8 cm (5' 10 ) 08/18/2024 12:56 PM NUTRITION ASSISTANT Body Mass Index 28.98 08/10/2024 2:24 PM NUTRITION ASSISTANT Plan of Treatment Health Maintenance Due Date Last Done Comments Colorectal Cancer Screening Colonoscopy (10 Years) 1955 Hepatitis C 10/06/1971 Zoster Vaccines (3 of 3) 05/28/2018 04/02/2018, 11/29 AAA SCREENING 2018 Annual Medicare Wellness Visit 2018 COVID-19 Vaccine ( season) 2024 04/12/2024, 04/01/2023, 03/31/2022, Additional history exists RSV Immunization or 60+ Years (1 - 1-dose 75+ series) 2028 DTaP, Tdap and Td Vaccines (2 - Td or Tdap) 12/26/2029 12/27/2019 Pneumococcal Vaccine: 50+ Years Completed 09/21/2019, 12/26/2014 Meningococcal B Vaccine Aged Out No l onger eligible based on patient's age to complete this topic Meningococcal Vaccine Aged Out No kristie troy eligible based on patient's age to complete this topic RSV Immunizations Under 20 Months Aged Out No longer eligible based on patient's age to complete this topic Medical Devices Implanted Type Area Physical Therapy Coordinator Device Identifier Shelf Expiration Date Model / Serial / Lot Tecnis 1-Piece Iol With Simplicity Delivery System - Right Eye Implanted:Qty: 1 on 07/14/2024 by Leanne Cade MD at [facility] Lens Right: Eye [employer] [id number] 08/02/2026 [id number] / [id number] / Tecnis 1-Piece Iol Implanted:Qty: 1 on 08/18/2024 by Leanne Cade MD at [facility] [employer] [id number] 02/11/2027 [id number] / [id number] / Procedures Procedure Name Priority Date/Time Associated Diagnosis Comments REMV CATARACT EXTRACAP,INSERT LENS 08/18/2024 1:35 PM NUTRITION ASSISTANT h25.9 POCT GLUCOSE - YOUNG DOCKED DEVICE Routine 08/18/2024 12:50 PM NUTRITION ASSISTANT REMV CATARACT EXTRACAP,INSERT LENS 07/14/2024 1:13 PM NUTRITION ASSISTANT h25.9 from Last 3 Months Results * (ABNORMAL) POCT glucose (08/18/2024 12:50 PM NUTRITION ASSISTANT) GLUCOSE POC 109(H) 70 - 99 MG/DL 08/18/2024 12:58 PM NUTRITION ASSISTANT [facility] 08/18/2024 12:5 0 PM NUTRITION ASSISTANT us Leanne Cade MD POCT ORDERABLES - DEVICE Final Result Performing Organization Address City/State/[facility] Co de Phone Number [facility] [address] [id number], from Last 3 Months Insurance [employer] Care Teams Database Analyst Relationship Specialty Start Date End Date Heidi Day MD PCP - General RADIATION ONCOLOGY 07/14/24
--- OUTSIDE RECORDS SUMMARY | 2024-10-11 07:08 | XMS_ITS | Clinical Summary ---
Author Organization [facility] Address [address] [place] [address] Care Team Providers Care Locum Tenens Name Role Phone Nghia Day MD Primary Care Provider [phone] Mariano Blue Unavailable Unavailable John Nelson DPM Unavailable [phone] Source Comments [facility],non-owned Affiliates and Associated Physician Practices is amultiple site organization consisting of ambulatory clinics and hospital sitesin [place], [place], [place] and [place]. This disclosure is being madepursuant to the Care Everywhere program and may not contain all information available regarding this patient. Last updated 18.[facility] Allergies No known active allergies Medications * Be aware that medications may not be up to date on this document. Alwaysverify current medications with the patient. Blood Glucose Monitoring Suppl (ACCU-CHEK KIKI PLUS) w/Device KIT 0 Active ASPIRIN 81 PO Take by mouth every Friday, Friday, Friday & Friday Active Coenzyme Q10 (CO Q 10 PO) Take 200 mg by mouth once daily Active Multiple Vitamins-Mineral s (QC MULTI-DYLON 50 & OVER PO) Take by mouth once daily Active diphenhydrAMINE- APAP, sleep, (TYLENOL PM EXTRA STRENGTH PO) Take by mouth as needed Active Blood Glucose Calibration (ACCU-CHEK KIKI ) Accu-Chek Kiki Plus Meter Active SOFTCLIX LANCETS MISC Accu-Chek Softclix Lancets Active Magnesium Oxide 400 MG Active losartan-hydroCH LOROthiazide (Hyzaar) 100-12.5 MG tablet Take 1 (one) tablet by mouth once daily 2 Active Cholecalciferol (Vitamin D3) 25 MCG (1000 UT) Take 1 (one) capsule by mouth once daily 30 capsule 2 Active triamcinolone acetonide (Kenalog) 0.1 % ointment 2 Active cyanocobalamin (Vitamin B-12) 500 MCG tablet Take 1 (one) tablet by mouth once daily 100 tablet 3 Active dapagliflozin-me tFORMIN ER 24hr (Xigduo XR) 5-1000 MG tablet Take 2 (two) tablets by mouth daily with food Do not crush or chew. 4 Active amLODIPine (Norvasc) 2.5 MG tablet Take 1 (one) tablet by mouth at bedtime 4 Active Accu-Chek Kiki Plus test stripIndications :Type 2 diabetes mellitus with hyperglycemia, without long-term current use of insulin (HCC) USE TO TEST BEFORE BREAKFAST AND AT BEDTIME 200 strip 3 4 Active rosuvastatin (Crestor) 20 MG tablet TAKE 1 TABLET ONCE DAILY (REPLACING ATORVASTATIN) 90 tablet 4 Active fenofibrate (Lofibra) 160 MG tablet TAKE 1 TABLET DAILY WITH LARGEST MEAL OF THE DAY 90 tablet 4 Active Active Problems Problem Noted Date Diagnosed Date Type 2 diabetes mellitus wit h hyperglycemia, without long-term current use of insulin 02/08/2020 Essential hypertension 02/08/2020 Dyslipidemia 02/08/2020 Vitamin D deficiency 02/08/2020 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 02/08/2020 History of total hip arthroplasty 05/25/2019 History of total knee arthroplasty 05/25/2019 Immunizations Immunization Administration Dates Next Due [email or web address] BIVALENT 12Y+ 30mcg/0.3ML 2 [employer] primary monoval ent 12+ yr 0.3mL Purple cap 09/01/2020,08/11/2020 09/01/2020 TDAP (7yrs+) 12/27/2019 Family History Medical History Relation Name Comments Alzheimer's Disease Father Cancer - Liver Mother Diabetes - Type 2 Mother Relation Name Status Comments Father Mother Social History Tobacco Use Types Packs/Day Years Used Date Smoking Tobacco: Former Smokeless Tobacco: Never Tobacco Cessation:Counseling Given: Not Answered Sex and Gender Information Value Date Recorded Sex Assigned at Not on file Legal Sex Male 6:27 PM MOBILE [employer] JOCKEY Gender Identity Not on file Sexual Orientation Not on file Occupation Industry Job Start Date Job End Date retired Not on file Not on file Not on file Last Filed Vital Signs Vital Sign Reading Time Taken Comments Blood Pressure 142/76 11/26/2023 1:16 PM CDT Pulse 89 11/26/2023 1:16 PM CDT Temperature 36.3 C (97.3 F) 10/09/2021 10:34 AM CDT Respiratory Rate 20 04/10/2021 10:36 AM CDT Oxygen Saturation 97% 11/26/2023 1:16 PM CDT Inhaled Oxygen Concentration - - Weight 99.8 kg (220 lb) 11/26/2023 1:16 PM CDT Height 175.3 cm (5' 9 ) 11/26/2023 1:16 PM CDT Body Mass Index 32.49 11/26/2023 1:16 PM CDT Plan of Treatment Health Maintenance Due Date Last Done Comments COLOGUARD (AGES 45-75) - COLON CA SCREENING 1955 COLON MONITORING 1955 COLONOSCOPY - COLON CA SCREENING 1953 CT COLONOGRAPHY - COLON CA SCREENING 1955 Colorectal Cancer Screening 1955 FIT - COLON CA SCREENING 1953 FLEX SIG - COLON CA SCREENING 1955 HEPATITIS C SCREENING 10/01/1971 PNEUMOCOCCAL VACCINE 50+ (1 of 2 - PCV) 1972 ZOSTER VACCINE (1 of 2) 10/06/2003 AAA SCREENING 2018 DIABETES-HGB A1C 04/24/2023 10/23/2022, , 04/10/2021, Additional history exists COVID-19 VACCINE ( season) 2024 04/01/2022, 09/01/2020, 08/11/2020 DIABETES RETINOPATHY SCREENING 03/22/2024 03/22/2022, 01/25/2020 DEPRESSION SCREENING 06/30/2024 DIABETES - URINE PROTEIN SCREENING 06/30/2024 03/10/2020 MEDICARE AWV CALENDAR YEAR 2024 DIABETES-SERUM CREATININE 09/04/20242023, 04/24/2022, 03/10/2020 DIABETES-FOOT EXAM WITH MONOFILAMENT 11/25/2024 11/26/2023 INFLUENZA VACCINE (Season Ended) 2025 Respiratory Syncytial Virus (RSV) Vaccine Pt: or over 60 yrs (1 - 1-dose 75+ series) 2028 DTAP/TDAP/TD VACCINES (2 - Td or Tdap) 12/26/2029 12/27/2019 HEPATITIS B VACCINE Aged Out No longe r eligible based on patient's age to complete this topic HIB VACCINE Aged Out No longer eligi ble based on patient's age to complete this topic HPV VACCINE Aged Out No longer eligi ble based on patient's age to complete this topic MENINGOCOCCAL (Group B) VACCINE SHARED DECISION-MAKING Aged Out No longer eligible based on patient's age to complete this topic MENINGOCOCCAL GROUPS A/C/Y/W VACCINE Aged Out No longer eligible based on patient's age to complete this topic Procedures Procedure Name Priority Date/Time Associated Diagnosis Comments COMPREHENSIVE METABOLIC PANEL Routine 09/05/2023 Type 2 diabetes mellitus with hyperglycemia, without long-term current use of insulin Vitamin D deficiency Dyslipidemia Essential hypertension HEMOGLOBIN A1C - POINT OF CARE (AMB) Routine 10/23/2022 Type 2 diabetes mellitus with hyperglycemia, without long-term current use of insulin HM DIABETES EYE EXAM Routine 03/22/2022 MICROALB/CREAT RATIO URINE RANDOM PANEL 03/10/2020 8:16 AM CDT from Last 3 Months or Most Recently Relevant to Health Maintenance Results * COMPREHENSIVE METABOLIC PANEL (09/05/2023) Blood BLOOD SPECIMEN / Unknown 09/05/2023 us Lin Lynn MD LAB - CHEMISTRY ORDERABL ES Final Result OTHER LAB * HEMOGLOBIN A1C - POINT OF CARE (HgbA1C) (10/23/2022) Hemoglobin A1c POCT 0.0 % Comment:test ordered by acci dent. Expiration Date 0 Lot # 0 QC Verified Yes Yes Blood BLOOD SPECIMEN / Unknown 10/23/2022 Lin Lynn MD LAB - POINT OF CARE TALAT SILVEIRA Edited Result - Final * DIABETES EYE EXAM (03/22/2022) Lin Lynn MD HEALTH MAINTENANCE Final Result * MICROALB/CREAT RATIO URINE RANDOM PANEL (03/10/2020 8:16 AM CDT) Creatinine Urine 96 20 - 320 mg/dL [facility] Microalbumin Urine 0.5 mg/dL [facility] Comment: Reference Range Not established Microalbumin/Creat inine Ratio 5 <30 mcg/mg creat [facility] Comment: The ADA defines abnormalities in albumin excretion as follows: Category Result (mcg/mg creatinine) Normal <30 Microalbuminuria 30-299 Clinical albuminuria > OR = 300 The ADA recommends that at least two of three specimens collected within a 3-6 month period be abnormal before considering a patient to be within a diagnostic category. Test Performed at: [facility] [id number] [place] [address] FELA BUTLER DO,MPH 03/10/2020 8:16 AM CDT 03/10/2020 8:18 AM CDT Anayeli Montemayor RIDES [facility]PER[facility] LAB - URINE CHARTER COORDINATOR RY ORDERABLES Final Result [facility] [id number] [place] [address] from Last 3 Months or Most Recently Relevant to Health Maintenance Insurance [employer] MEDICARE ADV Care Teams Locum Tenens Relationship Specialty Start Date End Date Nghia Day MD PCP - General Internal Medicine 02/04/20 Mariano Blue Update Information Parking Enforcement Technician 02/08/20 John Nelson DPM Update Information Resident Student Resident 02/08/20
--- OUTSIDE RECORDS SUMMARY | 2024-10-11 07:08 | XMS_ITS ---
Author Organization [facility] Address [address] [place], [place] [id number] Care Team Providers Care Circuit Court Judge Name Role Phone MARIANELA LOBATO Unavailable [phone] Marva Day Unavailable Unavailable REASON FOR VISIT Patient presents for at-risk foot care . The patient has painful toenails that cause difficulty with ambulation and shoegear. The onset is gradual Medications Medication SIG (Take, Route, Frequency, Duration) Notes Start Date End Date Status sitagliptin 50 MG Oral Tablet [Junuvia] ORAL sitagliptin 50 MG Oral Table t []Original Medicationsitagliptin 50 MG Oral Tablet [Junuvia] *Reorder from [facility] for eRx and Interaction Alerts* Active metformin hydrochloride 500 MG Oral Tablet ORAL metformin hydrochloride 500 MG Oral TabletOriginal Medicationmetformin hydrochloride 500 MG Oral Tablet *Reorder from [facility] for eRx and Interaction Alerts* 020 Active atorvastatin 40 MG Oral Tablet ORAL atorvastatin 40 MG Oral TabletOriginal Medicationatorvastatin 40 MG Oral Tablet *Reorder from [facility] for eRx and Interaction Alerts* 020 Active hydrochlorothiazide 25 MG / losartan potassium 100 MG Oral Tablet ORAL hydrochlorothiazide 25 MG / losartan potassium 100 MG Oral TabletOriginal Medicationhydrochlorothiazide 25 MG / losartan potassium 100 MG Oral Tablet *Reorder from [facility] for eRx and Interaction Alerts* 020 Active aspirin 81 MG Delayed Release Oral Tablet [Aspir-Low] ORAL aspirin 81 MG Delayed Releas e Oral Tablet [Aspir-Low]Original Medicationaspirin 81 MG Delayed Release Oral Tablet [Aspir-Low] *Reorder from [facility] for eRx and Interaction Alerts* Active Fenofibrate 120 MG Oral Tablet ORAL fenofibrate 120 MG Oral TabletOriginal Medicationfenofibrate 120 MG Oral Tablet *Reorder from [facility] for eRx and Interaction Alerts* 020 Active Synjardy 12.5-1000 MG 1 tablet with meals Orally Twice a day Active Glimepiride 4 MG Oral Tablet ORAL glimepiride 4 MG Oral TabletOriginal Medicationglimepiride 4 MG Oral Tablet *Reorder from [facility] for eRx and Interaction Alerts* 020 Active Encounters Encounter Location Date Provider Diagnosis [address] [id number] 08/19/2024 MARIANELA SNOOK Tinea unguium B35.1 ; Pain in right toe(s) M79.674 ; Pain in left toe(s) M79.675 and Atherosclerosis of [place] arteries of extremities with intermittent claudication, bilateral legs I70.213 Assessments Encounter Date Diagnosis (ICD Code) Assessment Notes Treatment Notes Treatment Clinical Notes Section Notes 08/19/2024 Tinea unguium (ICD-10 - B35.1) FUNGAL [...] Pain in left toe(s) (ICD-10 - M79.675) 08/19/2024 Atherosclerosis of [place] arteries of extremities with intermittent claudication, bilateral legs (ICD-10 - I70.213) Plan Of Treatment Treatment Notes Assessment Notes Tinea unguium FUNGAL TOENAILS: Discussed various treatment options for fungal toenails including debridement, topical antifungals, oral antifungals, toenail avulsion, or toenail matrixectomy. NAIL DEBRIDEMENT: Nails 1-5 Bilateral were debrided extensively with nail nippers and emery board, reducing length and girth to pink healthy tissue with any subungual debris and necrotic tissue removed Next Appt Details Follow Up: 10-12 Weeks, Reas on: At Risk Foot care, sooner if problems arise Provider Name:KAREN RAMOS, 10/21/2024 09:10:00 AM, [address] [place] [address], [phone], Progress Notes * MORE LUCIO EDOB:1955 (68 yo M)Acc No.[id number]:08/19/2024 Patient: MORE ANDERSON Provider: Zeferino Lobato DPM :1955 A ge:68 Y S ex:Male Date:08/19/2024 Address:[address] [place] [address] Subjective: * Chief Complaints: * Kalee wilkins presents for at-risk foot care . The patient has painful toenails that cause difficulty with ambulation and shoegear. The onset is gradual * HPI: H PI: General care P franky presents to the office for diabetic foot care. Patient states that their nails are thickened, elongated and painful. Patient states that it is aggravated by shoe gear. Onset is gradual., Patient denies taking prescription blood thinners but does take a daily aspirin., Date last seen by Dr. Day was 06/2024., Initials mca. sample. * ROS: G eneral / Constitutional: Patient denies c hills, fever, weight loss. ? M usculoskeletal: Patient denies w eakness, broken foot bone. P atient complains of j oint stiffness. P eripheral Vascular: Patient denies p ain / cramping in legs after exertion, ulceration of feet. S kin: Patient complains of f ungal nails, nail changes. ? N eurologic: Patient denies b alance difficulty, confusion, difficulty speaking, dizziness. * Medical History: * Surgical History: * Hospitalization/Major Diagno stic Procedure: * Medications: T akingSynjardy 12.5-1000 MG Tablet 1 tablet with meals Orally Twice a day Glimepiride 4 MG Oral Tablet ORAL , Notes to Pharmacist: glimepiride 4 MG Oral TabletOriginal Medicationglimepiride 4 MG Oral Tablet *Reorder from [facility] for eRx and Interaction Alerts*Fenofibrate 120 MG Oral Tablet ORAL , Notes to Pharmacist: fenofibrate 120 MG Oral TabletOriginal Medicationfenofibrate 120 MG Oral Tablet *Reorder from [facility] for eRx and Interaction Alerts*aspirin 81 MG Delayed Release Oral Tablet [Aspir- Low] ORAL , Notes to Pharmacist: aspirin 81 MG Delayed Release Oral Tablet [Aspir-Low]Original Medicationaspirin 81 MG Delayed Release Oral Tablet [Aspir- Low] *Reorder from [facility] for eRx and Interaction Alerts*atorvastatin 40 MG Oral Tablet ORAL , Notes to Pharmacist: atorvastatin 40 MG Oral TabletOriginal Medicationatorvastatin 40 MG Oral Tablet *Reorder from [facility] for eRx and Interaction Alerts*hydrochlorothiazide 25 MG / losartan potassium 100 MG Oral Tablet ORAL , Notes to Pharmacist: hydrochlorothiazide 25 MG / losartan potassium 100 MG Oral TabletOriginal Medicationhydrochlorothiazide 25 MG / losartan potassium 100 MG Oral Tablet *Reorder from [facility] for eRx and Interaction Alerts*metformin hydrochloride 500 MG Oral Tablet ORAL , Notes to Pharmacist: metformin hydrochloride 500 MG Oral TabletOriginal Medicationmetformin hydrochloride 500 MG Oral Tablet *Reorder from [facility] for eRx and Interaction Alerts*sitagliptin 50 MG Oral Tablet [Januvia] ORAL , Notes to Pharmacist: sitagliptin 50 MG Oral Tablet [Januvia]Original Medicationsitagliptin 50 MG Oral Tablet [Januvia] *Reorder from [facility] for eRx and Interaction Alerts*Medication List reviewed and reconciled with the patientTaking Synrdy 12.5-1000 MG Tablet 1 tablet with meals Orally Twice a day Taking Glimepiride 4 MG Oral Tablet ORAL , Notes to Pharmacist: glimepiride 4 MG Oral TabletOriginal Medicationglimepiride 4 MG Oral Tablet *Reorder from [facility] for eRx and Interaction Alerts*Taking Fenofibrate 120 MG Oral Tablet ORAL , Notes to Pharmacist: fenofibrate 120 MG Oral TabletOriginal Medicationfenofibrate 120 MG Oral Tablet *Reorder from [facility] for eRx and Interaction Alerts*Taking aspirin 81 MG Delayed Release Oral Tablet [Aspir-Low] ORAL , Notes to Pharmacist: aspirin 81 MG Delayed Release Oral Tablet [Aspir-Low]Original Medicationaspirin 81 MG Delayed Release Oral Tablet [Aspir-Low] *Reorder from [facility] for eRx and Interaction Alerts*Taking atorvastatin 40 MG Oral Tablet ORAL , Notes to Pharmacist: atorvastatin 40 MG Oral TabletOriginal Medicationatorvastatin 40 MG Oral Tablet *Reorder from [facility] for eRx and Interaction Alerts*Taking hydrochlorothiazide 25 MG / losartan potassium 100 MG Oral Tablet ORAL , Notes to Pharmacist: hydrochlorothiazide 25 MG / losartan potassium 100 MG Oral TabletOriginal Medicationhydrochlorothiazide 25 MG / losartan potassium 100 MG Oral Tablet *Reorder from [facility] for eRx and Interaction Alerts*Taking metformin hydrochloride 500 MG Oral Tablet ORAL , Notes to Pharmacist: metformin hydrochloride 500 MG Oral TabletOriginal Medicationmetformin hydrochloride 500 MG Oral Tablet *Reorder from [facility] for eRx and Interaction Alerts*Taking sitagliptin 50 MG Oral Tablet [Januvia] ORAL , Notes to Pharmacist: sitagliptin 50 MG Oral Tablet [Januvia]Original Medicationsitagliptin 50 MG Oral Tablet [Januvia] *Reorder from [facility] for eRx and Interaction Alerts*Medication List reviewed and reconciled with the patient Objective: * Vitals: * Examination: C onstitutional: Constitutional T he patient is awake, alert, well developed, well groomed and well nourished. D ermatologic: Skin findings: S kin is thin, atrophic and lacking pedal hair. Nail pathology: N ails 1, 2, 3, 4, and 5 bilateral are elongated, thick, discolored, and dystrophic with subungual debris. They are painful to palpation. ? V ascular: Dorsalis pedis pulse: 1 /4 b ilateral. Posterior tibial pulse: 0 /4 b ilateral. Capillary refill: g reater than 3 seconds. Edema: N o edema, bilateral. N eurologic: Gross sensation G ross sensation is intact to light touch.? M usculoskeletal: Muscle Strength M uscle strength is 5/5 in regards to dorsiflexion, plantarflexion, inversion, and eversion in bilateral lower extremities. Hallux Abducto Valgus T here is lateral deviation of the left hallux., The range of motion is, limited. Assessment: * Assessment: 1. T [place] unguium - B35.1 (Primary) 2 . P ain in right toe(s) - M79.674? 3. P ain in left toe(s) - M79.675 4 . A therosclerosis of [place] arteries of extremities with intermittent claudication, bilateral legs - I70.213 Plan: * Treatment: * Procedure Codes: * Follow Up: 1 0-12 Weeks (Reason: At Risk Foot care, sooner if problems arise) * Billing Information: * Visit Code: 40534 Office Visit, Est Pt., Level 3. * Procedure Codes: * Sign off status: Completed true * Provider: Zeferino Lobato DPM Date: 0 08/19/2024 Generated for Tray clancy/Elke/Johana on: 0 10/11/2024 [...] Date last seen by Dr. Day was 06/2024., Initials mca sample Examination Category Sub-Category Detail Notes Category Not es Dermatologic Skin findings: Skin is thin, at rophic and lacking pedal hair Nail pathology: Nails 1, 2, 3, 4, an d 5 bilateral are elongated, thick, discolored, and dystrophic with subungual debris. They are painful to palpation Neurologic Gross sensation Gross sensation is intact to light touch Vascular Dorsalis pedis pulse: 1/4 bilateral Edema: No edema, bilateral Capillary refill: greater than 3 secon ds Posterior tibial pulse: 0/4 bilateral Musculoskeletal Muscle Strength Muscle strength is 5/5 in regards to dorsiflexion, plantarflexion, inversion, and eversion in bilateral lower extremities Hallux Abducto Valgus There is lateral d eviation of the left hallux., The range of motion is, limited Constitutional Constitutional The patient is a wake, alert, well developed, well groomed and well nourished
[2024-10-11 07:24] LABS: Add Urine Microscopic? NO; Appearance Urine Clear (Clear); Bilirubin Urine Negative (Negative); Blood Urine Trace-intact (Negative); Color Urine Yellow (Yellow); Glucose Urine UA 3+ (Negative); Ketones Urine Negative (Negative); Leukocyte Esterase Ur Negative (Negative); Nitrate Urine Negative (Negative); Protein Urine Negative (Negative); Specific Grav Ur 1.025 (1.010-1.020); Urobilinogen Urine 0.2 mg/dL (0.2-1.0); pH Urine 5.5 (5.0-8.0)
[2024-10-11 07:25] LABS: Basophils Absolute Auto 0.05 K/mm3 (0.00-0.10); Basophils Percent Auto 0.9 % (0.0-1.0); Eosinophils Absolute Auto 0.06 K/mm3 (0.02-0.50); Eosinophils Percent Auto 1.1 % (1.0-6.0); Hematocrit 47.1 % (37.0-46.0); Immature Granulocyte Absolute 0.04 K/mm3 (0.00-0.00); Immature Granulocyte Percent A 0.7 % (0.0-0.0); Lymphocytes Absolute Auto 1.37 K/mm3 (1.10-4.50); Lymphocytes Percent Auto 24.6 % (18.0-42.0); Mean Corpuscular Hemoglobin 31.9 pg (27.0-31.0); Mean Corpuscular Volume 93.8 fL (78.0-102.0); Mean Platelet Volume 9.6 fl (8.7-11.0); Monocytes Percent Auto 10.8 % (2.0-11.0); Neutrophils Absolute Auto 3.44 K/mm3 (1.70-7.20); Neutrophils Percent Auto 61.9 % (50.0-70.0); Platelet Count Result 294 K/mm3 (150-420); Red Blood Count 5.02 M/mm3 (4.70-6.10); Red Cell Distribution Width 12.5 % (11.6-14.4); White Blood Count 5.6 K/mm3 (4.8-10.8)
[2024-10-11 08:57] LABS: Creatinine Urine 128.24 mg/dL (40-278); MALB Creatinine Ratio 23.4 mg/g (0-30); Microalbumin Urine Random 30.1 mg/L
[2024-10-11 08:58] LABS: Alanine Aminotransferase 35 U/L (16-63); Alkaline Phosphatase 56 U/L (46-116); Anion Gap 11 mmol/L (4-12); Aspartate Amino Transferase 21 U/L (15-37); Bilirubin,Total 0.5 mg/dL (0.00-1.00); Blood Urea Nitrogen 18 mg/dL (7-18); Calcium 9.4 mg/dL (8.5-10.1); Carbon Dioxide 30 mmol/L (21-32); Chloride 103 mmol/L (98-108); Cholesterol 153 mg/dL (0-200); Creatine Kinase 90 U/L (39-308); Estimated Glomerular Filt Rate 59; Glucose 124 mg/dL (70-99); HDL Direct 55 mg/dL (40-60); LDL Cholesterol Calculated 65 mg/dL (<130); Osmolality Calculated 300 mOsm/kg (285-295); Sodium 144 mmol/L (136-145); Total Protein 7.2 g/dL (6.4-8.2); Triglycerides 167 mg/dL (0-150); Uric Acid 3.6 mg/dL (3.5-7.2)
== END 2024-10-11 07:03 | disposition home or self-care (01) ==
LOC: CHSLAB 07:04
PROVIDERS: PCP Internal Medicine; Visit Provider Internal Medicine
DX: I10 Essential (primary) hypertension (principal); E78.2 Mixed hyperlipidemia; E11.65 Type 2 diabetes mellitus with hyperglycemia; E79.0 Hyperuricemia without signs of inflammatory arthritis and tophaceous disease
CPT/HCPCS: 36415; 80053; 80061; 81003; 82043; 82550; 83036; 84550; 85025

== ENCOUNTER 2025-01-24 07:00 | Outpatient (CLI) | payer MEDICARE, SELFPAY ==
--- OUTSIDE RECORDS SUMMARY | 2025-01-24 07:04 | XMS_ITS ---
Author Organization [facility] Address [address] [place], [place] [id number] Care Team Providers Care Slicing Machine Operator/Tender Name Role Phone MARIANELA LOBATO Unavailable [phone] Marva Day Unavailable Unavailable JEFFRY SESAY Unavailable [phone] REASON FOR VISIT *General care Medications Medication SIG (Take, Route, Frequency, Duration) Notes Start Date End Date Status aspirin 81 MG Delayed Release Oral Tablet [Aspir-Low] ORAL aspirin 81 MG Delayed Releas e Oral Tablet [Aspir-Low]Original Medicationaspirin 81 MG Delayed Release Oral Tablet [Aspir-Low] *Reorder from [facility] for eRx and Interaction Alerts* 020 Active Fenofibrate 120 MG Oral Tablet ORAL fenofibrate 120 MG Oral TabletOriginal Medicationfenofibrate 120 MG Oral Tablet *Reorder from [facility] for eRx and Interaction Alerts* 020 Active Glimepiride 4 MG Oral Tablet ORAL glimepiride 4 MG Oral TabletOriginal Medicationglimepiride 4 MG Oral Tablet *Reorder from [facility] for eRx and Interaction Alerts* 020 Active Synjardy 12.5-1000 MG 1 tablet with meals Orally Twice a day Active sitagliptin 50 MG Oral Tablet [Junuvia] ORAL sitagliptin 50 MG Oral Table t [Junuvia]Original Medicationsitagliptin 50 MG Oral Tablet [Junuvia] *Reorder from [facility] for eRx and Interaction Alerts* 020 Active metformin hydrochloride 500 MG Oral Tablet ORAL metformin hydrochloride 500 MG Oral TabletOriginal Medicationmetformin hydrochloride 500 MG Oral Tablet *Reorder from [facility] for eRx and Interaction Alerts* Active hydrochlorothiazide 25 MG / losartan potassium 100 MG Oral Tablet ORAL hydrochlorothiazide 25 MG / losartan potassium 100 MG Oral TabletOriginal Medicationhydrochlorothiazide 25 MG / losartan potassium 100 MG Oral Tablet *Reorder from [facility] for eRx and Interaction Alerts* Active atorvastatin 40 MG Oral Tablet ORAL atorvastatin 40 MG Oral TabletOriginal Medicationatorvastatin 40 MG Oral Tablet *Reorder from [facility] for eRx and Interaction Alerts* 020 Active Encounters Encounter Location Date Provider Diagnosis [place] [place], [place] [id number] 06/10/2024 JEFFRY SESAY Other hammer toe(s) (acquired), right foot M20.41 ; Tinea unguium B35.1 ; Other hammer toe(s) (acquired), left foot M20.42 ; Pain in right toe(s) M79.674 ; Pain in left toe(s) M79.675 ; Unspecified atherosclerosis of [place] arteries of extremities, bilateral legs I70.203 and [...] (ICD-10 - M79.675) 06/10/2024 Unspecified atherosclerosis of [place] arteries of extremities, bilateral legs (ICD-10 - [...] OTC and prescription treatments. Unspecified atherosclerosis of [place] arteries of extremities, bilateral legs Patient educated [...] Up: 3 Months, Reason: Provider Name:KAREN RAMOS, 02/17/2025 09:30:00 AM, [address] [place] [address], [phone], Progress Notes * MORE LUCIO EDOB:1955 (69 yo M)Acc No.[id number]:06/10/2024 Patient: MORE ANDERSON Provider: Marielle SESAY :1955 A ge:68 Y S ex:Male Date:06/10/2024 Address:[address] [place] [address] Subjective: * Chief Complaints: * 1 . [...] seen by Dr. Day was 03/2024., Initials [facility]. * ROS: G eneral / Constitutional: Patient denies w eakness. R espiratory: Patient denies c hronic cough, shortness of breath, sputum production. C ardiovascular: Patient denies c hest pain, history of NH, irregular heartbeat. M usculoskeletal: Patient complains of [...] Medicationglimepiride 4 MG Oral Tablet *Reorder from [facility] for eRx and Interaction Alerts*, Taking Fenofibrate 120 MG Oral Tablet ORAL , Notes to Pharmacist: fenofibrate 120 MG Oral TabletOriginal Medicationfenofibrate 120 MG Oral Tablet *Reorder from [facility] for eRx and Interaction Alerts*, Taking aspirin 81 MG Delayed Release Oral Tablet [Aspir-Low] ORAL , Notes to Pharmacist: aspirin 81 MG Delayed Release Oral Tablet [Aspir-Low]Original Medicationaspirin 81 MG Delayed Release Oral Tablet [Aspir-Low] *[facility]*, Taking atorvastatin 40 MG Oral Tablet ORAL , Notes to Pharmacist: atorvastatin 40 MG Oral TabletOriginal Medicationatorvastatin 40 MG Oral Tablet *Reorder from [facility] for eRx and Interaction Alerts*, Taking hydrochlorothiazide 25 MG / losartan potassium 100 MG Oral Tablet ORAL , Notes to Pharmacist: hydrochlorothiazide 25 MG / losartan potassium 100 MG Oral TabletOriginal Medicationhydrochlorothiazide 25 MG / losartan potassium 100 MG Oral Tablet *Reorder from [facility] for eRx and Interaction Alerts*, Taking metformin hydrochloride 500 MG Oral Tablet ORAL , Notes to Pharmacist: metformin hydrochloride 500 MG Oral TabletOriginal Medicationmetformin hydrochloride 500 MG Oral Tablet *Reorder from [facility] for eRx and Interaction Alerts*, Taking sitagliptin 50 MG Oral Tablet [ia] ORAL , Notes to Pharmacist: sitagliptin 50 MG Oral Tablet []Original Medicationsitagliptin 50 MG Oral Tablet [] *Reorder from [facility] for eRx and Interaction Alerts* Objective: [...] M79.675 6 . U nspecified atherosclerosis of [place] arteries of extremities, bilateral legs - I70.203 [...] were emphasized. 3. U nspecified atherosclerosis of [place] arteries of extremities, bilateral legs Notes: Patient [...] Months * Billing Information: * Visit Code: 06038 Office Visit, Est Pt., Level 3. * Procedure Codes: * Electronic signature of GT SESAY DPM on 01/24/2025 at 07:04 AM CDT Sign off status: Pending * Provider: Marielle SESAY Date: 1 08/11/2023 Generated for Tray clancy/Elke/Johana on: 0 01/24/2025 07:04 AM CDT History and Physical Notes * [...]
--- OUTSIDE RECORDS SUMMARY | 2025-01-24 07:04 | XMS_ITS | Patient Health Record ---
Author Organization [facility] Address [address] [place], [place] [address] Care Team Providers Care Aquatics Specialist Name Role Phone MARIANELA LOBATO Unavailable [phone] Marva Day Unavailable Unavailable JEFFRY SESAY Unavailable [phone] KAREN MONTERROSO Unavailable [phone] Allergies No Known Allergies Reason For Referral No Information Medications Medication SIG (Take, Route, Frequency, Duration) Notes Start Date End Date Status Glimepiride 4 MG Oral Tablet ORAL glimepiride 4 MG Oral TabletOriginal Medicationglimepiride 4 MG Oral Tablet *Reorder from [employer] for eRx and Interaction Alerts* 020 Active Synjardy 12.5-1000 MG 1 tablet with meals Orally Twice a day Active hydrochlorothiazide 25 MG / losartan potassium 100 MG Oral Tablet ORAL hydrochlorothiazide 25 MG / losartan potassium 100 MG Oral TabletOriginal Medicationhydrochlorothiazide 25 MG / losartan potassium 100 MG Oral Tablet *Reorder from [employer] for eRx and Interaction Alerts* 020 Active atorvastatin 40 MG Oral Tablet ORAL atorvastatin 40 MG Oral TabletOriginal Medicationatorvastatin 40 MG Oral Tablet *Reorder from [employer] for eRx and Interaction Alerts* 020 Active aspirin 81 MG Delayed Release Oral Tablet [Aspir-Low] ORAL aspirin 81 MG Delayed Releas e Oral Tablet [Aspir-Low]Original Medicationaspirin 81 MG Delayed Release Oral Tablet [Aspir-Low] *Reorder from [employer] for eRx and Interaction Alerts* 020 Active Fenofibrate 120 MG Oral Tablet ORAL fenofibrate 120 MG Oral TabletOriginal Medicationfenofibrate 120 MG Oral Tablet *Reorder from [employer] for eRx and Interaction Alerts* 020 Active sitagliptin 50 MG Oral Tablet [] ORAL sitagliptin 50 MG Oral Table t []Original Medicationsitagliptin 50 MG Oral Tablet [] *Reorder from [employer] for eRx and Interaction Alerts* 020 Active metformin hydrochloride 500 MG Oral Tablet ORAL metformin hydrochloride 500 MG Oral TabletOriginal Medicationmetformin hydrochloride 500 MG Oral Tablet *Reorder from [employer] for eRx and Interaction Alerts* 020 Active Immunizations Vaccine Route Administration Date Status Comme nts Tdap Unknown 12/27/2019 Administered Pfizer-Biontech Covid-19 Vac cine 1st dose Unknown 08/11/2020 Administered Pfizer-Biontech Covid-19 Vac cine 1st dose Unknown 09/01/2020 Administered Influenza, high dose seasonal Unknown 04/14/2023 Admini stered Vital Signs Height-cm 177.80 cm 12/16/2024 Weight-kg 108.86 kg 12/16/2024 Height 70.00 in 12/16/2024 Weight 240 lbs 12/16/2024 BMI 34.43 kg/m2 12/16/2024 Encounters Encounter Location Date Provider Diagnosis [address] [id number] 06/10/2024 JEFFRY SESAY Other hammer toe(s) (acquired), right foot M20.41 ; Tinea unguium B35.1 ; Other hammer toe(s) (acquired), left foot M20.42 ; Pain in right toe(s) M79.674 ; Pain in left toe(s) M79.675 ; Unspecified atherosclerosis of [place] arteries of extremities, bilateral legs I70.203 and Type 2 diabetes mellitus with diabetic peripheral angiopathy without gangrene E11.[address] [id number] 12/16/2024 KAREN MONTERROSO Tinea unguium B35.1 ; Pain in right toe(s) M79.674 ; Pain in left toe(s) M79.675 and Atherosclerosis of [place] arteries of extremities with intermittent claudication, bilateral legs I70.213 [facility] [address] [place], [place] [id number] 03/25/2024 JEFFRY SESAY Other hammer toe(s) (acquired), right foot M20.41 ; Tinea unguium B35.1 ; Other hammer toe(s) (acquired), left foot M20.42 ; Pain in right toe(s) M79.674 ; Pain in left toe(s) M79.675 ; Unspecified atherosclerosis of [place] arteries of extremities, bilateral legs I70.203 and Type 2 diabetes mellitus with diabetic peripheral angiopathy without gangrene E11.[address] [id number] 08/19/2024 MARIANELA LOBATO Tinea unguium B35.1 ; Pain in right toe(s) M79.674 ; Pain in left toe(s) M79.675 and Atherosclerosis of [place] arteries of extremities with intermittent claudication, bilateral legs I70.213 Assessments Encounter Date Diagnosis (ICD Code) Assessment Notes Treatment Notes Treatment Clinical Notes Section Notes 03/25/2024 Tinea unguium (ICD-10 - B35.1) Aseptic [...] in right toe(s) (ICD-10 - M79.674) 12/16/2024 Tinea unguium (ICD-10 - B35.1) FUNGAL [...] in left toe(s) (ICD-10 - M79.675) 08/19/2024 Pain in left toe(s) (ICD-10 - M79.675) 06/10/2024 Other hammer toe(s) (acquired), left foot (ICD-10 - M20.42) 03/25/2024 Other hammer toe(s) (acquired), left foot (ICD-10 - M20.42) 03/25/2024 Pain in right toe(s) (ICD-10 - M79.674) 06/10/2024 Pain in right toe(s) (ICD-10 - M79.674) 08/19/2024 Atherosclerosis of [place] arteries of extremities with intermittent claudication, bilateral legs (ICD-10 - I70.213) 12/16/2024 Atherosclerosis of [place] arteries of extremities with intermittent claudication, bilateral legs (ICD-10 - I70.213) 06/10/2024 Pain in left toe(s) (ICD-10 - M79.675) 03/25/2024 Pain in left toe(s) (ICD-10 - M79.675) 03/25/2024 Unspecified atherosclerosis of [place] arteries of extremities, bilateral legs (ICD-10 - I70.203) Patient educated on risks and aggravating factors of PVD, including conservative treatment options such as a diet and exercise regimen to aid in slowing progression of vascular disease 06/10/2024 Unspecified atherosclerosis of [place] arteries of extremities, bilateral legs (ICD-10 - [...] Treatment Next Appt Details Provider Name:KAREN RAMOS, 02/17/2025 09:30:00 AM, [address] [place] [address], [id number], Insurance Providers Payer Name Payer Address Payer Phone Subscriber Number Group Number Insured Name Patient Relationship to Insured Coverage Start Date Coverage End Date Aetna [address] [place] [address] [id number] MORE LUCIO Self - patient is the insured
--- OUTSIDE RECORDS SUMMARY | 2025-01-24 07:04 | XMS_ITS | Referral Summary ---
Author Organization [facility] [address] [facility] [address] Address [address] [place] [address] Care Team Providers Care Firer Low Pressure Name Role Phone Jeff Sanchez MD Primary Care Provider [phone] Allergies No known active allergies Medications aspirin [...] on file Legal Sex Male 6:31 PM FAMILY LAW PARALEGAL Gender Identity Not on file Sexual Orientation [...] 11:53 AM CDT Height 175.3 cm (5' 9) 01/22/2021 11:53 AM CDT Body Mass Index 32.19 01/22/2021 11:53 AM CDT Plan of Treatment Not on file Insurance [facility] MEDICARE ADVANTAGE Care Teams Firer Low Pressure Relationship Specialty Start Date End Date Jeff Sanchez MD [address] [place] [address] PCP - General Orthopedic Surgery 12/25/20
--- OUTSIDE RECORDS SUMMARY | 2025-01-24 07:04 | XMS_ITS | Clinical Summary ---
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
--- OUTSIDE RECORDS SUMMARY | 2025-01-24 07:05 | XMS_ITS | Clinical Summary ---
Author Organization [facility] Address [address] [facility] [place] [address] Care Team Providers Care Golf Coach Name Role Phone Nghia Day MD Primary Care Provider [phone] Mariano Blue Unavailable Unavailable John Nelson DPM Unavailable [phone] Source Comments [facility],non-owned Affiliates and Associated Physician Practices is amultiple site organization consisting of ambulatory clinics and hospital sitesin [place], [place], [place] and [place]. This disclosure is being madepursuant to the Care Everywhere program and may not contain all information available regarding this patient. Last updated 18.[facility] Allergies No known active allergies Medications * [...] 05/25/2019 Immunizations Immunization Administration Dates Next Due COVYeelink BIVALENT 12Y+ 30mcg/0.3ML 2 Cov6th [employer] primary monoval ent 12+ yr 0.3mL Purple [...] on file Legal Sex Male 6:27 PM WASHER HAND Gender Identity Not on file Sexual Orientation [...] 1:16 PM CDT Height 175.3 cm (5' 9) 11/26/2023 1:16 PM CDT Body Mass Index [...] EXAM WITH MONOFILAMENT 11/25/2024 11/26/2023 INFLUENZA VACCINE (#1) 2025 Respiratory Syncytial Virus (RSV) Vaccine Pt: [...] within a diagnostic category. Test Performed at: [facility] [address] [place] [address] FELA BUTLER DO,MPH 03/10/2020 8:16 AM CDT 03/10/2020 8:18 AM CDT Anayeli Montemayor SUPERVISOR [employer]-MEDICAL EQUIPMENT REPAIRER LAB - URINE LEGAL EXECUTIVE RY ORDERABLES Final Result [facility] [address] [place] [address] from Last 3 Months or Most Recently Relevant to Health Maintenance Insurance [employer] MEDICARE ADV Care Teams Golf Coach Relationship Specialty Start Date End Date Nghia Day MD PCP - General Internal Medicine 02/04/20 Mariano Blue Update Information Cytologist 02/08/20 John Nelson DPM Update Information Resident Student Resident 02/08/20
--- OUTSIDE RECORDS SUMMARY | 2025-01-24 07:05 | XMS_ITS | Clinical Summary ---
Author Organization [facility] Address [address] [place] [address] Care Team Providers Care Synthetic Cloth Binding Cutter Name Role Phone Heidi Day MD Primary Care Provider [phone] Allergies No known active allergies Medications rosuvastatin [...] Active Active Problems No known active problems Social History Tobacco Use Types Packs/Day Years Used Date Smoking Tobacco: Former Cigarettes Smokeless Tobacco: Never Tobacco Cessation:Counseling Given: Not Answered Passive Exposure Comments:27 years ago Alcohol Use Standard Drinks/Week Comments Yes 0 (1 standard drink = 0.6 oz pur e alcohol) daily one or two Sex and Gender Information Value Date Recorded Sex Assigned at Male 07/14/2024 12:39 PM HEALTH SAFETY ENGINEER Legal Sex Male 9:12 AM HEALTH SAFETY ENGINEER Gender Identity Not on file Sexual Orientation Not on file Last Filed Vital Signs Vital Sign Reading Time Taken Comments Blood Pressure 147/67 08/18/2024 2:00 PM HEALTH SAFETY ENGINEER Pulse 86 08/18/2024 2:00 PM HEALTH SAFETY ENGINEER Temperature 37 C (98.6 F) 08/18/2024 2:00 PM HEALTH SAFETY ENGINEER Respiratory Rate 16 08/18/2024 2:00 PM HEALTH SAFETY ENGINEER Oxygen Saturation 99% 08/18/2024 2:00 PM HEALTH SAFETY ENGINEER Inhaled Oxygen Concentration - - Weight 91.6 kg (202 lb) 08/10/2024 2:24 PM HEALTH SAFETY ENGINEER Height 177.8 cm (5' 10) 08/18/2024 12:56 PM HEALTH SAFETY ENGINEER Body Mass Index 28.98 08/10/2024 2:24 PM HEALTH SAFETY ENGINEER Plan of Treatment Health Maintenance Due Date [...] this topic Medical Devices Implanted Type Area Physicist Cryogenics Device Identifier Shelf Expiration Date Model / Serial / Lot Tecnis 1-Piece Iol With Simplicity Delivery System - Right Eye Implanted:Qty: 1 on 07/14/2024 by Leanne Cade MD at [facility] Lens Right: Eye [employer] [id number] 08/02/2026 [id number] / [id number] / Tecnis 1-Piece Iol Implanted:Qty: 1 on 08/18/2024 by Leanne Cade MD at [facility] [employer] [id number] 02/11/2027 [id number] / [id number] / Insurance [employer] Care Teams Synthetic Cloth Binding Cutter Relationship Specialty Start Date End Date Heidi Day MD PCP - General RADIATION ONCOLOGY 07/14/24
--- OUTSIDE RECORDS SUMMARY | 2025-01-24 07:05 | XMS_ITS ---
Author Organization [facility] Address [address] [place], [place] [address] Care Team Providers Care Head Girls Golf Coach Name Role Phone MARIANELA LOBATO Unavailable [phone] Marva Day Unavailable Unavailable KAREN MONTERROSO Unavailable [phone] REASON FOR VISIT *General care Medications Medication SIG (Take, Route, Frequency, Duration) Notes Start Date End Date Status hydrochlorothiazide 25 MG / losartan potassium 100 MG Oral Tablet ORAL hydrochlorothiazide 25 MG / losartan potassium 100 MG Oral TabletOriginal Medicationhydrochlorothiazide 25 MG / losartan potassium 100 MG Oral Tablet *Reorder from [facility] for eRx and Interaction Alerts* 020 Active atorvastatin 40 MG Oral Tablet ORAL atorvastatin 40 MG Oral TabletOriginal Medicationatorvastatin 40 MG Oral Tablet *Reorder from [facility] for eRx and Interaction Alerts* 020 Active aspirin 81 MG Delayed Release Oral Tablet [Aspir-Low] ORAL aspirin 81 MG Delayed Releas e Oral Tablet [Aspir-Low]Original Medicationaspirin 81 MG Delayed Release Oral Tablet [Aspir-Low] *Reorder from [facility] for eRx and Interaction Alerts* 020 Active sitagliptin 50 MG Oral Tablet [Junuvia] ORAL sitagliptin 50 MG Oral Table t [Junuvia]Original Medicationsitagliptin 50 MG Oral Tablet [Junuvia] *Reorder from [facility] for eRx and Interaction Alerts* 020 Active metformin hydrochloride 500 MG Oral Tablet ORAL metformin hydrochloride 500 MG Oral TabletOriginal Medicationmetformin hydrochloride 500 MG Oral Tablet *Reorder from [facility] for eRx and Interaction Alerts* 020 Active Glimepiride 4 MG Oral Tablet ORAL glimepiride 4 MG Oral TabletOriginal Medicationglimepiride 4 MG Oral Tablet *Reorder from [facility] for eRx and Interaction Alerts* 020 Active Synjardy 12.5-1000 MG 1 tablet with meals Orally Twice a day Active Fenofibrate 120 MG Oral Tablet ORAL fenofibrate 120 MG Oral TabletOriginal Medicationfenofibrate 120 MG Oral Tablet *Reorder from [facility] for eRx and Interaction Alerts* 020 Active Vital Signs Height 70.00 in 12/16/2024 Weight 240 lbs 12/16/2024 BMI 34.43 kg/m2 12/16/2024 Height-cm 177.80 cm 12/16/2024 Weight-kg 108.86 kg 12/16/2024 Encounters Encounter Location Date Provider Diagnosis [address] [id number] 12/16/2024 KAREN MONTERROSO Tinea unguium B35.1 ; Pain in right toe(s) M79.674 ; Pain in left toe(s) M79.675 and Atherosclerosis of [place] arteries of extremities with intermittent claudication, bilateral [...] toe(s) (ICD-10 - M79.675) 12/16/2024 Atherosclerosis of [place] arteries of extremities with intermittent claudication, bilateral [...] sooner if problems arise Provider Name:KAREN RAMOS, 02/17/2025 09:30:00 AM, [address] [place] [address], [phone], Progress Notes * MORE LUCIO EDOB:1955 (69 yo M)Acc No.[id number]:12/16/2024 Patient: Hugo JOSE MANUELSammieMORE Zeferino Provider: Devon MONTERROSO :1955 A ge:69 Y S ex:Male Date:12/16/2024 Address:[address] [place] [address] Subjective: * Chief Complaints: * 1 . [...] seen by Dr. Day was 07/2024., Initials [facility]. * ROS: G eneral / [...] Medicationglimepiride 4 MG Oral Tablet *Reorder from [facility] for eRx and Interaction Alerts*, Taking Fenofibrate 120 MG Oral Tablet ORAL , Notes to Pharmacist: fenofibrate 120 MG Oral TabletOriginal Medicationfenofibrate 120 MG Oral Tablet *Reorder from [facility] for eRx and Interaction Alerts*, Taking aspirin 81 MG Delayed Release Oral Tablet [Aspir-Low] ORAL , Notes to Pharmacist: aspirin 81 MG Delayed Release Oral Tablet [Aspir-Low]Original Medicationaspirin 81 MG Delayed Release Oral Tablet [Aspir-Low] *Reorder from [facility] for eRx and Interaction Alerts*, Taking atorvastatin 40 MG Oral Tablet ORAL , Notes to Pharmacist: atorvastatin 40 MG Oral TabletOriginal Medicationatorvastatin 40 MG Oral Tablet *Reorder from [facility] for eRx and Interaction Alerts*, Taking hydrochlorothiazide 25 MG / losartan potassium 100 MG Oral Tablet ORAL , Notes to Pharmacist: hydrochlorothiazide 25 MG / losartan potassium 100 MG Oral TabletOriginal Medicationhydrochlorothiazide 25 MG / losartan potassium 100 MG Oral Tablet *Reorder from [facility] for eRx and Interaction Alerts*, Taking metformin hydrochloride 500 MG Oral Tablet ORAL , Notes to Pharmacist: metformin hydrochloride 500 MG Oral TabletOriginal Medicationmetformin hydrochloride 500 MG Oral Tablet *Reorder from [facility] for eRx and Interaction Alerts*, Taking sitagliptin 50 MG Oral Tablet [Januvia] ORAL , Notes to Pharmacist: sitagliptin 50 MG Oral Tablet [Januvia]Original Medicationsitagliptin 50 MG Oral Tablet [Januvia] *Reorder from [facility] for eRx and Interaction Alerts*, Medication [...] - M79.675 4 . A therosclerosis of [place] arteries of extremities with intermittent claudication, bilateral legs - I70.213 Plan: * Treatment: * Immunizations: Immunization record has been reviewed and updated. * Follow Up: 1 0-12 Weeks (Reason: At Risk Foot care, sooner if problems arise) * Billing Information: * Visit Code: 05325 Office Visit, Est Pt., Level 3. * Procedure Codes: * Electronic signature of SPENSER MONTERROSO DPM on 01/24/2025 at 07:04 AM CDT Sign off status: Pending * Provider: Devon MONTERROSO Date: 0 12/16/2024 Generated for Tray clancy/Elke/Johana on: 0 01/24/2025 [...]
[2025-01-24 07:25] LABS: Hematocrit 46.0 % (37.0-46.0); Hemoglobin 15.3 g/dL (12.4-15.3); Mean Corpuscular HGB Conc 33.3 g/dL (32-36); Mean Corpuscular Hemoglobin 31.2 pg (27.0-31.0); Mean Corpuscular Volume 93.7 fL (78.0-102.0); Platelet Count Result 323 K/mm3 (150-420); Red Blood Count 4.91 M/mm3 (4.70-6.10); White Blood Count 6.2 K/mm3 (4.8-10.8)
[2025-01-24 07:26] LABS: Add Urine Microscopic? NO; Appearance Urine Clear (Clear); Glucose Urine UA Negative (Negative); Leukocyte Esterase Ur Negative (Negative); Nitrate Urine Negative (Negative); Specific Grav Ur 1.015 (1.010-1.020)
[2025-01-24 07:41] LABS: MALB Creatinine Ratio 17.0 mg/g (0-30)
[2025-01-24 07:49] LABS: Hemoglobin A1C 5.7 % (<5.7)
[2025-01-24 07:55] LABS: Alanine Aminotransferase 29 U/L (6-50); Albumin Level 4.3 g/dL (3.5-5.1); Alkaline Phosphatase 51 U/L (38-126); Anion Gap 6 mmol/L (4-12); Aspartate Amino Transferase 41 U/L (17-59); Bilirubin,Total 0.6 mg/dL (0.2-1.3); Blood Urea Nitrogen 16 mg/dL (9-20); Calcium 9.6 mg/dL (8.4-10.2); Carbon Dioxide 28 mmol/L (22-30); Chloride 104 mmol/L (98-107); Cholesterol 176 mg/dL (0-200); Creatine Kinase 97 U/L (55-170); Estimated Glomerular Filt Rate > 60; Glucose 118 mg/dL (65-110); Osmolality Calculated 288 mOsm/kg (285-295); Sodium 138 mmol/L (137-145); Total Protein 6.8 g/dL (6.3-8.2); Triglycerides 179 mg/dL (<150); Uric Acid 4.1 mg/dL (3.5-8.5)
[2025-01-24 07:58] LABS: HDL Direct 59 mg/dL; Potassium 4.2 mmol/L (3.4-5.0)
== END 2025-01-24 07:01 | disposition home or self-care (01) ==
LOC: CHSLAB 07:02
PROVIDERS: PCP Internal Medicine; Visit Provider Internal Medicine
DX: E11.9 Type 2 diabetes mellitus without complications (principal); I10 Essential (primary) hypertension; E78.2 Mixed hyperlipidemia; E79.0 Hyperuricemia without signs of inflammatory arthritis and tophaceous disease
CPT/HCPCS: 36415; 80053; 80061; 81003; 82043; 82550; 83036; 84550; 85027

== ENCOUNTER 2025-02-11 08:09 | Outpatient (CLI) | payer MEDICARE, SELFPAY ==
--- NOTE | ~2025-02-11 | XR_ITS ---
EXAMINATION: XR ankle LT min 3V, XR foot LT min 3V DATE: 02/11/2025 08:22 INDICATION: Chronic left ankle pain TECHNIQUE: 1. Anteroposterior, mortise, additional oblique and lateral view of the left ankle were obtained. 2. Dorsoplantar, two oblique and lateral views of the left foot were obtained. COMPARISON: None. FINDINGS: Alignment of the foot and ankle is normal. No fracture. Polyarticular osteoarthritis, severe at the f irst metatarsophalangeal joint and mild at the left ankle and multiple additional joints throughout t he left foot. Large Achilles and plantar calcaneal spurs. Are multiple subcutaneous heterotopic ossic les in the soft tissues posterior to the distal calf the region of the Achilles tendon myotendinous j unction suggesting sequela chronic trauma/tear. No ankle joint effusion. IMPRESSION: 1. 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 No acute osseous abnormality. 2. Multiple heterotopic ossicles project over the Achilles myotendinous junction suggestive of sequel a of chronic trauma/tear. 2. Large Achilles and plantar calcaneal spurs. Reviewed, dictated and finalized at location A. IMPRESSION: 1. 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 No acute osseous abnormality. 2. Multiple heterotopic ossicles project over the Achilles myotendinous junctio n suggestive of sequela of chronic trauma/tear. 2. Large Achilles and plantar calcaneal spurs.
--- OUTSIDE RECORDS SUMMARY | 2025-02-11 08:14 | XMS_ITS | Patient Health Record ---
Author Organization [facility] Address [address] [place], [place] [address] Care Team Providers Care Heating Unit Installer Name Role Phone MARIANELA LOBATO Unavailable [phone] Marva Day Unavailable Unavailable SHAMA JEFFRY Unavailable [phone] KAREN MONTERROSO Unavailable [phone] Allergies No Known Allergies Reason For Referral No Information Medications Medication SIG (Take, Route, Frequency, Duration) Notes Start Date End Date Status Glimepiride 4 MG Oral Tablet ORAL glimepiride 4 MG Oral TabletOriginal Medicationglimepiride 4 MG Oral Tablet *Reorder from [facility] for eRx and Interaction Alerts* 020 Active Synjardy 12.5-1000 MG 1 tablet with meals Orally Twice a day Active hydrochlorothiazide 25 MG / losartan potassium 100 MG Oral Tablet ORAL hydrochlorothiazide 25 MG / losartan potassium 100 MG Oral TabletOriginal Medicationhydrochlorothiazide 25 MG / losartan potassium 100 MG Oral Tablet *Reorder from [facility] for eRx and Interaction Alerts* 020 Active atorvastatin 40 MG Oral Tablet ORAL atorvastatin 40 MG Oral TabletOriginal Medicationatorvastatin 40 MG Oral Tablet *Reorder from [facility] for eRx and Interaction Alerts* 020 Active aspirin 81 MG Delayed Release Oral Tablet [Aspir-Low] ORAL aspirin 81 MG Delayed Releas e Oral Tablet [Aspir-Low]Original Medicationaspirin 81 MG Delayed Release Oral Tablet [Aspir-Low] *Reorder from [facility] for eRx and Interaction Alerts* 020 Active Fenofibrate 120 MG Oral Tablet ORAL fenofibrate 120 MG Oral TabletOriginal Medicationfenofibrate 120 MG Oral Tablet *Reorder from [facility] for eRx and Interaction Alerts* 020 Active sitagliptin 50 MG Oral Tablet [] ORAL sitagliptin 50 MG Oral Table t []Original Medicationsitagliptin 50 MG Oral Tablet [] *Reorder from [facility] for eRx and Interaction Alerts* 020 Active metformin hydrochloride 500 MG Oral Tablet ORAL metformin hydrochloride 500 MG Oral TabletOriginal Medicationmetformin hydrochloride 500 MG Oral Tablet *Reorder from [facility] for eRx and Interaction Alerts* 020 Active Immunizations Vaccine Route Administration Date Status Comme nts Influenza, high dose seasonal Unknown 04/14/2023 Admini stered Pfizer-Biontech Covid-19 Vac cine 1st dose Unknown 08/11/2020 Administered Pfizer-Biontech Covid-19 Vac cine 1st dose Unknown 09/01/2020 Administered Tdap Unknown 12/27/2019 Administered Vital Signs Height-cm 177.80 cm 12/16/2024 Weight-kg 108.86 kg 12/16/2024 Height 70.00 in 12/16/2024 Weight 240 lbs 12/16/2024 BMI 34.43 kg/m2 12/16/2024 Encounters Encounter Location Date Provider Diagnosis [address] [id number] 06/10/2024 JEFFRY SESAY Other hammer toe(s) (acquired), right foot M20.41 ; Tinea unguium B35.1 ; Other hammer toe(s) (acquired), left foot M20.42 ; Pain in right toe(s) M79.674 ; Pain in left toe(s) M79.675 ; Unspecified atherosclerosis of [place] arteries of extremities, bilateral legs I70.203 and Type 2 diabetes mellitus with diabetic peripheral angiopathy without gangrene E11.[address] [id number] 12/16/2024 KAREN MONTERROSO Tinea unguium B35.1 ; Pain in right toe(s) M79.674 ; Pain in left toe(s) M79.675 and Atherosclerosis of [place] arteries of extremities with intermittent claudication, bilateral legs I70.213 [facility] [address] [place], [place] [id number] 03/25/2024 JEFFRY SESAY Other hammer toe(s) (acquired), right foot M20.41 ; Tinea unguium B35.1 ; Other hammer toe(s) (acquired), left foot M20.42 ; Pain in right toe(s) M79.674 ; Pain in left toe(s) M79.675 ; Unspecified atherosclerosis of [place] arteries of extremities, bilateral legs I70.203 and Type 2 diabetes mellitus with diabetic peripheral angiopathy without gangrene E11.[address] [id number] 08/19/2024 MARIANELA LOBATO Tinea unguium B35.1 ; Pain in right toe(s) M79.674 ; Pain in left toe(s) M79.675 and Atherosclerosis of [place] arteries of extremities with intermittent claudication, bilateral [...] toe(s) (ICD-10 - M79.674) 08/19/2024 Atherosclerosis of [place] arteries of extremities with intermittent claudication, bilateral legs (ICD-10 - I70.213) 12/16/2024 Atherosclerosis of [place] arteries of extremities with intermittent claudication, bilateral legs (ICD-10 - I70.213) 06/10/2024 Pain in left toe(s) (ICD-10 - M79.675) 03/25/2024 Pain in left toe(s) (ICD-10 - M79.675) 03/25/2024 Unspecified atherosclerosis of [place] arteries of extremities, bilateral legs (ICD-10 - I70.203) Patient educated on risks and aggravating factors of PVD, including conservative treatment options such as a diet and exercise regimen to aid in slowing progression of vascular disease 06/10/2024 Unspecified atherosclerosis of [place] arteries of extremities, bilateral legs (ICD-10 - [...] Details Provider Name:KAREN RAMOS, 02/17/2025 09:30:00 AM, [address] [place] [address], [id number], Insurance Providers Payer Name Payer Address Payer Phone Subscriber Number Group Number Insured Name Patient Relationship to Insured Coverage Start Date Coverage End Date [employer] [address] [place] [phone] [id number] MORE LUCIO Self - patient is the insured
--- OUTSIDE RECORDS SUMMARY | 2025-02-11 08:14 | XMS_ITS | Clinical Summary ---
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
--- OUTSIDE RECORDS SUMMARY | 2025-02-11 08:14 | XMS_ITS ---
Author Organization [facility] Address [address] [place], [place] [address] Care Team Providers Care Numerical Control Programmer Name Role Phone MARIANELA LOBATO Unavailable [phone] Marva Day Unavailable Unavailable JEFFRY SESAY Unavailable [phone] REASON FOR VISIT *General care Medications Medication SIG (Take, Route, Frequency, Duration) Notes Start Date End Date Status aspirin 81 MG Delayed Release Oral Tablet [Aspir-Low] ORAL aspirin 81 MG Delayed Releas e Oral Tablet [Aspir-Low]Original Medicationaspirin 81 MG Delayed Release Oral Tablet [Aspir-Low] *Reorder from [facility] for eRx and Interaction Alerts* 020 Active Fenofibrate 120 MG Oral Tablet ORAL fenofibrate 120 MG Oral TabletOriginal Medicationfenofibrate 120 MG Oral Tablet *Reorder from [facility] for eRx and Interaction Alerts* 020 Active Glimepiride 4 MG Oral Tablet ORAL glimepiride 4 MG Oral TabletOriginal Medicationglimepiride 4 MG Oral Tablet *Reorder from [facility] for eRx and Interaction Alerts* 020 Active Synjardy 12.5-1000 MG 1 tablet with meals Orally Twice a day Active sitagliptin 50 MG Oral Tablet [Junuvia] ORAL sitagliptin 50 MG Oral Table t [Junuvia]Original Medicationsitagliptin 50 MG Oral Tablet [Junuvia] *Reorder from [facility] for eRx and Interaction Alerts* 020 Active metformin hydrochloride 500 MG Oral Tablet ORAL metformin hydrochloride 500 MG Oral TabletOriginal Medicationmetformin hydrochloride 500 MG Oral Tablet *Reorder from [facility] for eRx and Interaction Alerts* Active hydrochlorothiazide 25 MG / losartan potassium 100 MG Oral Tablet ORAL hydrochlorothiazide 25 MG / losartan potassium 100 MG Oral TabletOriginal Medicationhydrochlorothiazide 25 MG / losartan potassium 100 MG Oral Tablet *Reorder from [facility] for eRx and Interaction Alerts* Active atorvastatin 40 MG Oral Tablet ORAL atorvastatin 40 MG Oral TabletOriginal Medicationatorvastatin 40 MG Oral Tablet *Reorder from [facility] for eRx and Interaction Alerts* 020 Active Encounters Encounter Location Date Provider Diagnosis [place] [address] [place], [place] [id number] 06/10/2024 JEFFRY SESAY Other hammer toe(s) (acquired), right foot M20.41 ; Tinea unguium B35.1 ; Other hammer toe(s) (acquired), left foot M20.42 ; Pain in right toe(s) M79.674 ; Pain in left toe(s) M79.675 ; Unspecified atherosclerosis of [place] arteries of extremities, bilateral legs I70.203 and [...] (ICD-10 - M79.675) 06/10/2024 Unspecified atherosclerosis of [place] arteries of extremities, bilateral legs (ICD-10 - [...] OTC and prescription treatments. Unspecified atherosclerosis of [place] arteries of extremities, bilateral legs Patient educated [...] Reason: Provider Name:KAREN RAMOS, 02/17/2025 09:30:00 AM, [address] [place] [address], [phone], Progress Notes * MORE LUCIO EDOB:1955 (69 yo M)Acc No.[id number]:06/10/2024 Patient: MORE ANDERSON Provider: Marielle SESAY :1955 A ge:68 Y S ex:Male Date:06/10/2024 Address:[address] [place] [address] Subjective: * Chief Complaints: * 1 . [...] seen by Dr. Day was 03/2024., Initials [facility]. * ROS: G eneral / Constitutional: Patient denies w eakness. R espiratory: Patient denies c hronic cough, shortness of breath, sputum production. C ardiovascular: Patient denies c hest pain, history of [place], irregular heartbeat. M usculoskeletal: Patient complains of [...] Medicationglimepiride 4 MG Oral Tablet *Reorder from [facility] for eRx and Interaction Alerts*, Taking Fenofibrate 120 MG Oral Tablet ORAL , Notes to Pharmacist: fenofibrate 120 MG Oral TabletOriginal Medicationfenofibrate 120 MG Oral Tablet *Reorder from [facility] for eRx and Interaction Alerts*, Taking aspirin 81 MG Delayed Release Oral Tablet [Aspir-Low] ORAL , Notes to Pharmacist: aspirin 81 MG Delayed Release Oral Tablet [Aspir-Low]Original Medicationaspirin 81 MG Delayed Release Oral Tablet [Aspir-Low] *[facility] for eRx and Interaction Alerts*, Taking atorvastatin 40 MG Oral Tablet ORAL , Notes to Pharmacist: atorvastatin 40 MG Oral TabletOriginal Medicationatorvastatin 40 MG Oral Tablet *Reorder from [facility] for eRx and Interaction Alerts*, Taking hydrochlorothiazide 25 MG / losartan potassium 100 MG Oral Tablet ORAL , Notes to Pharmacist: hydrochlorothiazide 25 MG / losartan potassium 100 MG Oral TabletOriginal Medicationhydrochlorothiazide 25 MG / losartan potassium 100 MG Oral Tablet *Reorder from [facility] for eRx and Interaction Alerts*, Taking metformin hydrochloride 500 MG Oral Tablet ORAL , Notes to Pharmacist: metformin hydrochloride 500 MG Oral TabletOriginal Medicationmetformin hydrochloride 500 MG Oral Tablet *Reorder from [facility] for eRx and Interaction Alerts*, Taking sitagliptin 50 MG Oral Tablet [ia] ORAL , Notes to Pharmacist: sitagliptin 50 MG Oral Tablet []Original Medicationsitagliptin 50 MG Oral Tablet [] *Reorder from [facility] for eRx and Interaction Alerts* Objective: [...] M79.675 6 . U nspecified atherosclerosis of [place] arteries of extremities, bilateral legs - I70.203 [...] were emphasized. 3. U nspecified atherosclerosis of [place] arteries of extremities, bilateral legs Notes: Patient [...] Months * Billing Information: * Visit Code: 23721 Office Visit, Est Pt., Level 3. * Procedure Codes: * Electronic signature of GT SESAY DPM on 02/11/2025 at 08:13 AM CDT Sign off status: Pending * Provider: Marielle SESAY Date: 1 08/11/2023 Generated for Tray clancy/Elke/Johana on: 0 02/11/2025 08:13 AM CDT History and Physical Notes * [...]
--- OUTSIDE RECORDS SUMMARY | 2025-02-11 08:14 | XMS_ITS | Clinical Summary ---
Author Organization [facility] Address [address] [place] [address] Care Team Providers Care Contracting Specialist Name Role Phone Nghia Day MD Primary Care Provider [phone] Mariano Blue Unavailable Unavailable John Nelson DPM Unavailable [phone] Source Comments [facility],non-owned Affiliates and Associated Physician Practices is amultiple site organization consisting of ambulatory clinics and hospital sitesin [place], [place], [place] and [place]. This disclosure is being madepursuant to the Care Everywhere program and may not contain all information available regarding this patient. 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 Test Performed at: [facility] [address] [place] [address] FELA BUTLER DO,MPH 03/10/2020 8:16 AM CDT 03/10/2020 8:18 AM CDT Anayeli Montemayor UNIT EDUCATOR-[facility] - URINE AERODYNAMICS ENGINEER RY ORDERABLES Final Result [facility] [address] [place] [address] from Last 3 Months or Most Recently Relevant to Health Maintenance Insurance A[employer] MEDICARE ADV Care Teams Contracting Specialist Relationship Specialty Start Date End Date Nghia Day MD PCP - General Internal Medicine 02/04/20 Mariano Blue Update Information Postdoctoral Scholar 02/08/20 John Nelson DPM Update Information Resident Student Resident 02/08/20
--- OUTSIDE RECORDS SUMMARY | 2025-02-11 08:14 | XMS_ITS ---
Author Organization [facility] Address [address] [place], [place] [address] Care Team Providers Care Wellness Nurse Name Role Phone MARIANELA LOBATO Unavailable [phone] Marva Day Unavailable Unavailable KAREN MONTERROSO Unavailable [phone] REASON FOR VISIT *General care Medications Medication SIG (Take, Route, Frequency, Duration) Notes Start Date End Date Status hydrochlorothiazide 25 MG / losartan potassium 100 MG Oral Tablet ORAL hydrochlorothiazide 25 MG / losartan potassium 100 MG Oral TabletOriginal Medicationhydrochlorothiazide 25 MG / losartan potassium 100 MG Oral Tablet *Reorder from [facility] for eRx and Interaction Alerts* 020 Active atorvastatin 40 MG Oral Tablet ORAL atorvastatin 40 MG Oral TabletOriginal Medicationatorvastatin 40 MG Oral Tablet *Reorder from [facility] for eRx and Interaction Alerts* 020 Active aspirin 81 MG Delayed Release Oral Tablet [Aspir-Low] ORAL aspirin 81 MG Delayed Releas e Oral Tablet [Aspir-Low]Original Medicationaspirin 81 MG Delayed Release Oral Tablet [Aspir-Low] *Reorder from [facility] for eRx and Interaction Alerts* 020 Active sitagliptin 50 MG Oral Tablet [Junuvia] ORAL sitagliptin 50 MG Oral Table t [Junuvia]Original Medicationsitagliptin 50 MG Oral Tablet [Junuvia] *Reorder from [facility] for eRx and Interaction Alerts* 020 Active metformin hydrochloride 500 MG Oral Tablet ORAL metformin hydrochloride 500 MG Oral TabletOriginal Medicationmetformin hydrochloride 500 MG Oral Tablet *Reorder from [facility] for eRx and Interaction Alerts* 020 Active Glimepiride 4 MG Oral Tablet ORAL glimepiride 4 MG Oral TabletOriginal Medicationglimepiride 4 MG Oral Tablet *Reorder from [facility] for eRx and Interaction Alerts* 020 Active Synjardy 12.5-1000 MG 1 tablet with meals Orally Twice a day Active Fenofibrate 120 MG Oral Tablet ORAL fenofibrate 120 MG Oral TabletOriginal Medicationfenofibrate 120 MG Oral Tablet *Reorder from [facility] for eRx and Interaction Alerts* 020 Active Vital Signs Height 70.00 in 12/16/2024 Weight 240 lbs 12/16/2024 BMI 34.43 kg/m2 12/16/2024 Height-cm 177.80 cm 12/16/2024 Weight-kg 108.86 kg 12/16/2024 Encounters Encounter Location Date Provider Diagnosis [address] [id number] 12/16/2024 KAREN MONTERROSO Tinea unguium B35.1 ; [...] toe(s) (ICD-10 - M79.675) 12/16/2024 Atherosclerosis of [place] arteries of extremities [...] arise Provider Name:KAREN RAMOS, 02/17/2025 09:30:00 AM, [address] [place] [address], [phone], Progress Notes * MORE LUCIO EDOB:1955 (69 yo M)Acc No.[id number]:12/16/2024 Patient: Hugo JOSE MANUELSammieMORE Zeferino Provider: Devon MONTERROSO :1955 A ge:69 Y S ex:Male Date:12/16/2024 Address:[address] [place] [address] Subjective: * Chief Complaints: * 1 . [...] seen by Dr. Day was 07/2024., Initials [facility]. * ROS: G eneral / Constitutional: Patient [...] Medicationglimepiride 4 MG Oral Tablet *Reorder from [facility] for eRx and Interaction Alerts*, Taking Fenofibrate 120 MG Oral Tablet ORAL , Notes to Pharmacist: fenofibrate 120 MG Oral TabletOriginal Medicationfenofibrate 120 MG Oral Tablet *Reorder from [facility] for eRx and Interaction Alerts*, Taking aspirin 81 MG Delayed Release Oral Tablet [Aspir-Low] ORAL , Notes to Pharmacist: aspirin 81 MG Delayed Release Oral Tablet [Aspir-Low]Original Medicationaspirin 81 MG Delayed Release Oral Tablet [Aspir-Low] *Reorder from [facility] for eRx and Interaction Alerts*, Taking atorvastatin 40 MG Oral Tablet ORAL , Notes to Pharmacist: atorvastatin 40 MG Oral TabletOriginal Medicationatorvastatin 40 MG Oral Tablet *Reorder from [facility] for eRx and Interaction Alerts*, Taking hydrochlorothiazide 25 MG / losartan potassium 100 MG Oral Tablet ORAL , Notes to Pharmacist: hydrochlorothiazide 25 MG / losartan potassium 100 MG Oral TabletOriginal Medicationhydrochlorothiazide 25 MG / losartan potassium 100 MG Oral Tablet *Reorder from [facility] for eRx and Interaction Alerts*, Taking metformin hydrochloride 500 MG Oral Tablet ORAL , Notes to Pharmacist: metformin hydrochloride 500 MG Oral TabletOriginal Medicationmetformin hydrochloride 500 MG Oral Tablet *Reorder from [facility] for eRx and Interaction Alerts*, Taking sitagliptin 50 MG Oral Tablet [Januvia] ORAL , Notes to Pharmacist: sitagliptin 50 MG Oral Tablet [Januvia]Original Medicationsitagliptin 50 MG Oral Tablet [Januvia] *Reorder from [facility] for eRx and Interaction Alerts*, Medication [...] - M79.675 4 . A therosclerosis of [place] arteries of extremities with intermittent claudication, bilateral legs - I70.213 Plan: * Treatment: * Immunizations: Immunization record has been reviewed and updated. * Follow Up: 1 0-12 Weeks (Reason: At Risk Foot care, sooner if problems arise) * Billing Information: * Visit Code: 10769 Office Visit, Est Pt., Level 3. * Procedure Codes: * Electronic signature of SPENSER MONTERROSO DPM on 02/11/2025 at 08:14 AM CDT Sign off status: Pending * Provider: Devon MONTERROSO Date: 0 12/16/2024 Generated for Tray clancy/Elke/Johana on: 0 02/11/2025 08:14 AM CDT History and Physical Notes * [...]
--- OUTSIDE RECORDS SUMMARY | 2025-02-11 08:14 | XMS_ITS | Clinical Summary ---
Author Organization [facility] Address [address] [place] [address] Care Team Providers Care Manual Training Teacher Name Role Phone Heidi Day MD Primary Care Provider [phone] Allergies No known active allergies Medications rosuvastatin [...] Sex Assigned at Male 07/14/2024 12:39 PM INTERACTIVE WEB DEVELOPER Legal Sex Male 9:12 AM INTERACTIVE WEB DEVELOPER Gender Identity Not on file Sexual Orientation Not on file Last Filed Vital Signs Vital Sign Reading Time Taken Comments Blood Pressure 147/67 08/18/2024 2:00 PM INTERACTIVE WEB DEVELOPER Pulse 86 08/18/2024 2:00 PM INTERACTIVE WEB DEVELOPER Temperature 37 C (98.6 F) 08/18/2024 2:00 PM INTERACTIVE WEB DEVELOPER Respiratory Rate 16 08/18/2024 2:00 PM INTERACTIVE WEB DEVELOPER Oxygen Saturation 99% 08/18/2024 2:00 PM INTERACTIVE WEB DEVELOPER Inhaled Oxygen Concentration - - Weight 91.6 kg (202 lb) 08/10/2024 2:24 PM INTERACTIVE WEB DEVELOPER Height 177.8 cm (5' 10) 08/18/2024 12:56 PM INTERACTIVE WEB DEVELOPER Body Mass Index 28.98 08/10/2024 2:24 PM INTERACTIVE WEB DEVELOPER Plan of Treatment Health Maintenance Due Date [...] this topic Medical Devices Implanted Type Area Building Inspection Engineer Device Identifier Shelf Expiration Date Model / Serial / Lot Tecnis 1-Piece Iol With Simplicity Delivery System - Right Eye Implanted:Qty: 1 on 07/14/2024 by Leanne Cade MD at [facility] Lens Right: Eye [employer] [id number] 08/02/2026 [id number] / [id number] / Tecnis 1-Piece Iol Implanted:Qty: 1 on 08/18/2024 by Leanne Cdae MD at [facility] [employer] [id number] 02/11/2027 [id number] / [id number] / Insurance AETNA Care Teams Manual Training Teacher Relationship Specialty Start Date End Date Heidi Day MD PCP - General RADIATION ONCOLOGY 07/14/24
== END 2025-02-11 08:10 | disposition home or self-care (01) ==
LOC: CHSIMG 08:11
PROVIDERS: PCP Internal Medicine; Visit Provider Internal Medicine
DX: M25.572 Pain in left ankle and joints of left foot (principal); M19.072 Primary osteoarthritis, left ankle and foot; M77.32 Calcaneal spur, left foot
CPT/HCPCS: 73610; 73630

== ENCOUNTER 2025-04-11 07:08 | Day surgery (SDC) | payer MEDICARE, SELFPAY ==
[2025-03-28 13:37] VITALS: BMI 28.8
--- OUTSIDE RECORDS SUMMARY | 2025-04-11 07:28 | XMS_ITS | Clinical Summary ---
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
--- OUTSIDE RECORDS SUMMARY | 2025-04-11 07:28 | XMS_ITS | Clinical Summary ---
Author Organization [facility] Address [address] [place] [address] Care Team Providers Care Operating System Programmer Name Role Phone Heidi Day MD Primary Care Provider [phone] Allergies No known active allergies Medications rosuvastatin [...] Sex Assigned at Male 07/14/2024 12:39 PM CONSULTING PSYCHOLOGIST Legal Sex Male 9:12 AM CONSULTING PSYCHOLOGIST Gender Identity Not on file Sexual Orientation Not on file Last Filed Vital Signs Vital Sign Reading Time Taken Comments Blood Pressure 147/67 08/18/2024 2:00 PM CONSULTING PSYCHOLOGIST Pulse 86 08/18/2024 2:00 PM CONSULTING PSYCHOLOGIST Temperature 37 C (98.6 F) 08/18/2024 2:00 PM CONSULTING PSYCHOLOGIST Respiratory Rate 16 08/18/2024 2:00 PM CONSULTING PSYCHOLOGIST Oxygen Saturation 99% 08/18/2024 2:00 PM CONSULTING PSYCHOLOGIST Inhaled Oxygen Concentration - - Weight 91.6 kg (202 lb) 08/10/2024 2:24 PM CONSULTING PSYCHOLOGIST Height 177.8 cm (5' 10) 08/18/2024 12:56 PM CONSULTING PSYCHOLOGIST Body Mass Index 28.98 08/10/2024 2:24 PM CONSULTING PSYCHOLOGIST Plan of Treatment Health Maintenance Due Date Last Done Comments Colorectal Cancer Screening Colonoscopy (10 Years) 1955 Hepatitis C 10/06/1971 Zoster Vaccines (3 of 3) 05/28/2018 04/02/2018, 11/29 AAA SCREENING 2018 Annual Medicare Wellness Visit 2018 COVID-19 Vaccine ( season) 2025 04/12/2024, 04/01/2023, 03/31/2022, Additional history exists Influenza Adult (#1) 2025 04/01/2024, 08/10/2021, 02/26/2021, Additional history exists RSV Immunization or 60+ [...] this topic Medical Devices Implanted Type Area Purchasing Associate Device Identifier Shelf Expiration Date Model / Serial / Lot Tecnis 1-Piece Iol With Simplicity Delivery System - Right Eye Implanted:Qty: 1 on 07/14/2024 by Leanne Cade MD at [facility] Lens Right: Eye [employer] [id number] 08/02/2026 [id number] / [id number] / Tecnis 1-Piece Iol Implanted:Qty: 1 on 08/18/2024 by Leanne Cade MD at [facility] [employer] [id number] 02/11/2027 [id number] / [id number] / Insurance [employer] MEDICARE Care Teams Operating System Programmer Relationship Specialty Start Date End Date Heidi Day MD PCP - General RADIATION ONCOLOGY 07/14/24
--- OUTSIDE RECORDS SUMMARY | 2025-04-11 07:28 | XMS_ITS | Clinical Summary ---
Author Organization [facility] Address [address] [facility] [place] [address] Care Team Providers Care General Operator Name Role Phone Nghia Day MD Primary Care Provider [phone] Mariano Blue Unavailable Unavailable John Nelson DPM Unavailable [phone] Source Comments [facility],non-owned Affiliates and Associated Physician Practices is amultiple site organization consisting of ambulatory clinics and hospital sitesin [place], [place], [place] and [place]. This disclosure is being madepursuant to the Care Everywhere program and may not contain all information available regarding this patient. Last updated 18.[facility] Allergies No known active allergies Medications * [...] 05/25/2019 Immunizations Immunization Administration Dates Next Due COVTeradici BIVALENT 12Y+ 30mcg/0.3ML 2 CovNuon Therapeutics primary monoval ent 12+ yr 0.3mL Purple [...] on file Legal Sex Male 6:[address] Gender Identity Not on file Sexual Orientation [...] 04/24/2023 10/23/2022, , 04/10/2021, Additional history exists DIABETES RETINOPATHY SCREENING 03/22/2024 03/22/2022, 01/25/2020 DEPRESSION SCREENING 06/30/2024 DIABETES - URINE PROTEIN SCREENING 06/30/2024 03/10/2020 MEDICARE AWV CALENDAR YEAR 2024 DIABETES-SERUM CREATININE 09/04/20242023, 04/24/2022, 03/10/2020 DIABETES-FOOT EXAM WITH MONOFILAMENT 11/25/2024 11/26/2023 COVID-19 VACCINE ( season) 2025 04/01/2022, 09/01/2020, 08/11/2020 INFLUENZA VACCINE (#1) 2025 Respiratory Syncytial Virus [...] within a diagnostic category. Test Performed at: [facility] [address] [place] [address] FELA BUTLER DO,MPH 03/10/2020 8:16 AM CDT 03/10/2020 8:18 AM CDT Anayeli Montemayor ARCHITECTURE CONSULTANT-PAINT FORMULATOR LAB - URINE DESULPHURIZER OPERATOR RY ORDERABLES Final Result [facility] [id number] [place] [address] from Last 3 Months or Most Recently Relevant to Health Maintenance Insurance [employer] MEDICARE ADV Care Teams General Operator Relationship Specialty Start Date End Date Nghia Day MD PCP - General Internal Medicine 02/04/20 Mariano Blue Update Information Blade Bender Furnace Tender 02/08/20 John Nelson DPM Update Information Resident Student Resident 02/08/20
[2025-04-11 07:49] VITALS: BP 135/71; PULSE 85; RESP 16; TEMP 36.4; O2SAT 100
--- NOTE | 2025-04-11 07:50 | PM.IMHP ---
H&P: HPI History of Present Illness Date/Time: 04/11/25 07:50 Chief Complaint: hx colon polyps, fam hx colon cancer Narrative: 69 yo man presents for colonoscopy. Last colonoscopy done 6 years ago and polyps removed at that time. He also has hx of colon cancer in his mother. he denies hematochezia or melena Review of Systems Review of Systems: All systems reviewed & are unremarkable except as noted in HPI and below Constitutional: Constitutional: Denies chills, Denies fever(s), Denies headache(s) and Denies weight loss Eyes: Eyes: Denies change in vision ENT: Denies dizziness, Denies headache(s), Denies neck mass and Denies throat swelling Cardiovascular: Cardiovascular: Denies chest pain, Denies lightheadedness and Denies dyspnea Respiratory: Respiratory: Denies cough, Denies dyspnea and Denies wheezing Gastrointestinal: Gastrointestinal: Denies abdominal pain, Denies change in bowel habits, Denies nausea and Denies vomiting Genitourinary: Genitourinary: Denies hematuria and Denies dysuria Musculoskeletal: Musculoskeletal: Reports as per HPI Integumentary/Breasts: Skin/Breast: Reports as per HPI Neurologic: Denies dizziness and Denies headache(s) Allergic/Immunologic: Allergic/Immunologic: Denies throat swelling and Denies wheezing [facility] Past Medical History Medical History (Updated 04/11/25 @ 07:52 by Hal Thomas DO) Alcohol use Diabetes mellitus HLD (hyperlipidemia) HTN (hypertension) Family History Family History Mother Diabetes mellitus Social History Social History Smoking packs per day: 2.5 Smoking cigarettes per day: 50.0 Years smoked: 25 Smoking pack-years: 62.50 Smoking status: Former smoker Tobacco type: cigarettes Second hand tobacco smoke exposure: Yes Smoking end date: 12/28/97 Additional smoking assessment comments: DENIES ALL NICOTINE USE NOW Alcohol intake: current Drinks per week: 28 Alcohol use details: 2 BEERS AND 2 SHOTS/DAY Substance use: never Substance use type: does not use Living arrangements: with family Additional living arrangements comments: Gender identity (if verbalized by the patient): Male Spiritual care concerns: No Meds Home Medications and Allergies Home Medications ?Medication ?Instructions ?Recorded ?Confirmed ?Type coenzyme Q10 100 mg capsule 200 mg PO DAILY 01/18/20 04/11/25 History (CoQ-10) rmprvpih-cds-yvalx acid 0.4 1 tablet PO DAILY 01/18/20 04/11/25 History mg-lycopene 300 mcg-lutein 250 mcg tablet (Centrum Silver) acetaminophen 500 mg capsule 1,000 mg PO Q6H PRN Pain 02/08/21 04/11/25 History aspirin 81 mg capsule 81 mg PO 3XW 02/08/21 04/11/25 History diphenhydramine 25 1 tablet PO HS PRN Insomnia 02/08/21 04/11/25 History mg-acetaminophen 500 mg tablet (Tylenol PM Extra Strength) fenofibrate nanocrystallized 145 145 mg PO DAILY 02/08/21 04/11/25 History mg tablet amlodipine 2.5 mg tablet 2.5 mg PO QPM 03/28/25 04/11/25 History fenofibrate 160 mg tablet 160 mg PO DAILY 03/28/25 04/11/25 History losartan 100 1 tablet PO DAILY 03/28/25 04/11/25 History mg-hydrochlorothiazide 12.5 mg tablet rosuvastatin 20 mg tablet 20 mg PO DAILY 03/28/25 04/11/25 History tirzepatide 15 mg/0.5 mL 15 mg subcut WEEKLY 03/28/25 04/11/25 History subcutaneous pen injector (Mounkevinro) Allergies Allergy/AdvReac Type Severity Reaction Status Date / Time No Known Allergies Allergy Verified 04/11/25 07:46 Exam Const: General: no acute distress and alert Orientation/consciousness: patient oriented x3 HENMT: Head: normocephalic and atraumatic Ears: hearing grossly normal bilaterally Face/Nose/Sinus: Normal nares present Mouth: Yes Normal oral and palatal mucosa present Eyes: Periorbital: periorbital findings normal Sclera: sclerae normal EOM: EOMs intact bilaterally Neck: Neck: normal visual inspection, no lymphadenopathy and trachea midline Chest: Chest palpation & inspection: normal inspection of the chest Resp: Effort & Inspection: normal respiratory effort Auscultation: clear to auscultation bilaterally Cardio: Jugular venous distension: no JVD Rate: regular rate Rhythm: regular rhythm Heart sounds: S1 normal heart sound present and S2 normal heart sound present Peripheral pulses: Peripheral pulses 2+ throughout GI: Inspection: normal to inspection GI Palp: Yes Soft to palpation, No Tenderness to palpation present (GI), No Guarding due to palpation present (GI) and No Rebound tenderness present Percussion: Yes normal to percussion Auscultation: normal bowel sounds : General: Yes no CVA tenderness Back/Spine/Pelvis: Back: no CVA tenderness Neuro: General: patient oriented x3, no focal motor deficits and CN's II-XI intact bilaterally Cognition (Neuro): normal cognition Speech: normal speech Motor exam (neuro): 5/5 motor strength present throughout Extrem: General: capillary refill normal and no clubbing, cyanosis or edema Assessment and Plan Assessment and plan (1) Hx of colonic polyps: Code(s): Z86.0100 - Personal history of colon polyps, unspecified Status: Acute Assessment and Plan: I have recommended colonoscopy. I have discussed the procedure, risks, benefits, and alternatives. Questions were answered. Patient is agreeable to proceed. (2) Family hx of colon cancer: Code(s): Z80.0 - Family history of malignant neoplasm of digestive organs Status: Acute
[2025-04-11] MEDS: LACTATED RINGERS 1,000 ML 150 ML IV CONT (07:52)
--- NOTE | 2025-04-11 08:39 | WPDANESEPPF ---
Anes - Initial Pre Proc Eval Procedure: Operation Date: 04/11/25 09:15 Proposed Procedures p Diagnostic Colonoscopy - Hal Thomas DO Date/Time: 04/11/25 08:39 Surgeon: Hal Thomas DO Pre Op Diagnosis: History of Polyps Patient Data Age: 69 Gender: M Height: 1.78 m Weight: 89.95 kg Last Vital Signs Temp 97.5 F L 04/11/25 07:49 Pulse 85 04/11/25 07:49 Resp 16 04/11/25 07:49 BP 135/71 04/11/25 07:49 Pulse Ox 100 04/11/25 07:49 O2 Del Method Room Air 04/11/25 07:49 Allergies Allergy/AdvReac Type Severity Reaction Status Date / Time No Known Allergies Allergy Verified 04/11/25 07:46 Home Medications ?Medication ?Instructions ?Recorded ?Confirmed ?Type coenzyme Q10 100 mg capsule 200 mg PO DAILY 01/18/20 04/11/25 History (CoQ-10) lgvckrrc-hzz-lvkhj acid 0.4 1 tablet PO DAILY 01/18/20 04/11/25 History mg-lycopene 300 mcg-lutein 250 mcg tablet (Centrum Silver) acetaminophen 500 mg capsule 1,000 mg PO Q6H PRN Pain 02/08/21 04/11/25 History aspirin 81 mg capsule 81 mg PO 3XW 02/08/21 04/11/25 History diphenhydramine 25 1 tablet PO HS PRN Insomnia 02/08/21 04/11/25 History mg-acetaminophen 500 mg tablet (Tylenol PM Extra Strength) fenofibrate nanocrystallized 145 145 mg PO DAILY 02/08/21 04/11/25 History mg tablet amlodipine 2.5 mg tablet 2.5 mg PO QPM 03/28/25 04/11/25 History fenofibrate 160 mg tablet 160 mg PO DAILY 03/28/25 04/11/25 History losartan 100 1 tablet PO DAILY 03/28/25 04/11/25 History mg-hydrochlorothiazide 12.5 mg tablet rosuvastatin 20 mg tablet 20 mg PO DAILY 03/28/25 04/11/25 History tirzepatide 15 mg/0.5 mL 15 mg subcut WEEKLY 03/28/25 04/11/25 History subcutaneous pen injector (Mounjaro) Laboratory Tests 04/11/25 08:00 POC Capillary Glucose 136 H mg/dl (65-105) Patient hx anesthesia problems: none Family hx anesthesia problems: none Results Review: All pre-operative results and documents have been reviewed as part of the pre-operative evaluation. [facility] Past Medical History Medical History (Updated 04/11/25 @ 07:52 by Hal Thomas, DO) Alcohol use Diabetes mellitus HLD (hyperlipidemia) HTN (hypertension) Family History Family History Mother Diabetes mellitus Social History Social History Smoking packs per day: 2.5 Smoking cigarettes per day: 50.0 Years smoked: 25 Smoking pack-years: 62.50 Smoking status: Former smoker Tobacco type: cigarettes Second hand tobacco smoke exposure: Yes Smoking end date: 12/28/97 Additional smoking assessment comments: DENIES ALL NICOTINE USE NOW Alcohol intake: current Drinks per week: 28 Alcohol use details: 2 BEERS AND 2 SHOTS/DAY Substance use: never Substance use type: does not use Living arrangements: with family Additional living arrangements comments: Gender identity (if verbalized by the patient): Male Spiritual care concerns: No Anes - Eval Final PreProcedure Day of Procedure 04/11/25 08:39 Heart: regular rate and rhythm Lungs: clear to auscultation Airway: Mallampati scale class III Neurological: alert and oriented Last oral intake: >/= 8 hours ASA classification: III Anesthetic plan: proceed Anesthesia type and monitoring: monitored anesthesia care Results Review: All pre-operative results and documents have been reviewed as part of the pre-operative evaluation. Informed Consent: The patient's anesthetic plan and its attendant risks and benefits were discussed with the patient/family/POA. Questions were solicited and answers provided to the satisfaction of the patient/family/POA.
--- NOTE | 2025-04-11 09:53 | WPDANESPN ---
Anes - Prog Note Post-Op Date/Time: 04/11/25 09:53 Vital Signs: Last Vital Signs Temp 97.5 F L 04/11/25 07:49 Pulse 85 04/11/25 07:49 Resp 16 04/11/25 07:49 BP 135/71 04/11/25 07:49 Pulse Ox 100 04/11/25 07:49 O2 Del Method Room Air 04/11/25 07:49 Pain Score (VAS): no I/O: Intake & Output 04/10/25 04/11/25 04/11/25 23:59 07:59 15:59 Intake Total 0 Balance 0 04/11/25 08:00 POC Capillary Glucose 136 H Patient Feedback: Patient satisfied with anesthetic care.
[2025-04-11 09:56] VITALS: BP 103/66; PULSE 74; RESP 18; O2SAT 97
[2025-04-11 10:06] VITALS: BP 116/67; PULSE 76; RESP 18; O2SAT 99
[2025-04-11 10:16] VITALS: BP 128/69; PULSE 68; RESP 18; O2SAT 99
== END 2025-04-11 10:21 | disposition home or self-care (01) ==
PROVIDERS: PCP Internal Medicine; Visit Provider Surgery
PROC: 0DJD8ZZ Inspection of Lower Intestinal Tract, Via Natural or Artificial Opening Endoscopic (ICD-10-PCS; CPT 45378; principal; 2025-04-11 09:15)
DX: Z12.11 Encounter for screening for malignant neoplasm of colon (principal); D12.2 Benign neoplasm of ascending colon; D12.3 Benign neoplasm of transverse colon; K57.30 Diverticulosis of large intestine without perforation or abscess without bleeding; Z80.0 Family history of malignant neoplasm of digestive organs
CPT/HCPCS: 45385

== ENCOUNTER 2025-04-11 07:44 | Outpatient (NON) | payer MEDICARE, SELFPAY ==
--- OUTSIDE RECORDS SUMMARY | 2024-06-10 06:20 | XMS_ITS ---
Author Organization [facility] Address [address] [place], [place] [id number] Care Team Providers Care Oracle Ebs Developer Name Role Phone MARIANELA LOBATO Unavailable [phone] Marva Day Unavailable Unavailable JEFFRY SESAY Unavailable [phone] REASON FOR VISIT *General care Medications Medication SIG (Take, Route, Frequency, Duration) Notes Start Date End Date Status aspirin 81 MG Delayed Release Oral Tablet [Aspir-Low] ORAL aspirin 81 MG Delayed Releas e Oral Tablet [Aspir-Low]Original Medicationaspirin 81 MG Delayed Release Oral Tablet [Aspir-Low] *Reorder from [employer] for eRx and Interaction Alerts* 020 Active Fenofibrate 120 MG Oral Tablet ORAL fenofibrate 120 MG Oral TabletOriginal Medicationfenofibrate 120 MG Oral Tablet *Reorder from [employer] for eRx and Interaction Alerts* 020 Active Glimepiride 4 MG Oral Tablet ORAL glimepiride 4 MG Oral TabletOriginal Medicationglimepiride 4 MG Oral Tablet *Reorder from [employer] for eRx and Interaction Alerts* 020 Active Synjardy 12.5-1000 MG 1 tablet with meals Orally Twice a day Active sitagliptin 50 MG Oral Tablet [Junuvia] ORAL sitagliptin 50 MG Oral Table t [Junuvia]Original Medicationsitagliptin 50 MG Oral Tablet [Junuvia] *Reorder from [employer] for eRx and Interaction Alerts* 020 Active metformin hydrochloride 500 MG Oral Tablet ORAL metformin hydrochloride 500 MG Oral TabletOriginal Medicationmetformin hydrochloride 500 MG Oral Tablet *Reorder from [employer] for eRx and Interaction Alerts* Active hydrochlorothiazide 25 MG / losartan potassium 100 MG Oral Tablet ORAL hydrochlorothiazide 25 MG / losartan potassium 100 MG Oral TabletOriginal Medicationhydrochlorothiazide 25 MG / losartan potassium 100 MG Oral Tablet *Reorder from [facility] for eRx and Interaction Alerts* Active atorvastatin 40 MG Oral Tablet ORAL atorvastatin 40 MG Oral TabletOriginal Medicationatorvastatin 40 MG Oral Tablet *Reorder from [facility] for eRx and Interaction Alerts* 020 Active Encounters Encounter Location Date Provider Diagnosis [address] [place], [place] [id number] 06/10/2024 JEFFRY SESAY Other hammer toe(s) (acquired), right foot M20.41 ; Tinea unguium B35.1 ; Other hammer toe(s) (acquired), left foot M20.42 ; Pain in right toe(s) M79.674 ; Pain in left toe(s) M79.675 ; Unspecified atherosclerosis of [place] arteries of extremities, bilateral legs I70.203 and Type 2 diabetes mellitus with diabetic peripheral angiopathy without gangrene E11.51 Assessments Encounter Date Diagnosis (ICD Code) Assessment Notes Treatment Notes Treatment Clinical Notes Section Notes 06/10/2024 Other hammer toe(s) (acquired), right foot (ICD-10 - M20.41) The patient was educated regarding how to mechanically stabilize their deformity. The patient was given education about shoe recommendations specific for the condition. The patient was educated about custom orthotics and how appropriate shoes and orthotics can prevent further worsening of the deformity. The patient was educated about how bad shoe habits can worsen the condition. NSAIDS, P.T., injections and other conservative treatments were discussed. Both surgical and non surgical treatments were discussed, but conservative options were emphasized. 06/10/2024 Tinea unguium (ICD-10 - B35.1) Aseptic debridement of elongated thickened nails x 10 using sterile nippers, nails were debrided in length and thickness by 30% utilizing a nail nipper without incident. The patient was educated regarding all treatment options that include topical and oral antifungal treatments. I discussed the options of taking a sample of the nail to confirm diagnosis. Nail clippings were not sent for pathology analysis. The patient was educated why and how the fungal infection evolved in their feet and the patient was given information regarding how to prevent further infection. The patient was told to keep feet dry and change socks. The patient was told to be careful with old shoes and excessive sweating. The patient was educated regarding both OTC and prescription treatments. 06/10/2024 Other hammer toe(s) (acquired), left foot (ICD-10 - M20.42) 06/10/2024 Pain in right toe(s) (ICD-10 - M79.674) 06/10/2024 Pain in left toe(s) (ICD-10 - M79.675) 06/10/2024 Unspecified atherosclerosis of [place] arteries of extremities, bilateral legs (ICD-10 - I70.203) Patient educated on risks and aggravating factors of PVD, including conservative treatment options such as a diet and exercise regimen to aid in slowing progression of vascular disease 06/10/2024 Type 2 diabetes mellitus with diabetic peripheral angiopathy without gangrene (ICD-10 - E11.51) Patient educated on proper diabetic foot care and the importance of tight glycemic control in regards to the prevention of diabetic manifestations and symptomatology in lower extremity. Explained to patient the importance of keeping interdigital spaces dry, not walking bare foot, having supportive shoe gear, using moisturizer to skin on feet daily especially in winter months, and checking feet daily for any new lesions or areas suspicious of trauma infection or ulceration. Explained to patient to return to ED if any change in foot health associated with signs of systemic infection including but not limited to nausea, vomiting, fever. Plan Of Treatment Treatment Notes Assessment Notes Other hammer toe(s) (acquired), right fo ot The patient was educated regarding how to mechanically stabilize their deformity. The patient was given education about shoe recommendations specific for the condition. The patient was educated about custom orthotics and how appropriate shoes and orthotics can prevent further worsening of the deformity. The patient was educated about how bad shoe habits can worsen the condition. NSAIDS, P.T., injections and other conservative treatments were discussed. Both surgical and non surgical treatments were discussed, but conservative options were emphasized. Tinea unguium Aseptic debridement of elongated thickened nails x 10 using sterile nippers, nails were debrided in length and thickness by 30% utilizing a nail nipper without incident. The patient was educated regarding all treatment options that include topical and oral antifungal treatments. I discussed the options of taking a sample of the nail to confirm diagnosis. Nail clippings were not sent for pathology analysis. The patient was educated why and how the fungal infection evolved in their feet and the patient was given information regarding how to prevent further infection. The patient was told to keep feet dry and change socks. The patient was told to be careful with old shoes and excessive sweating. The patient was educated regarding both OTC and prescription treatments. Unspecified atherosclerosis of [place] arteries of extremities, bilateral legs Patient educated on risks and aggravating factors of PVD, including conservative treatment options such as a diet and exercise regimen to aid in slowing progression of vascular disease Type 2 diabetes mellitus wit h diabetic peripheral angiopathy without gangrene Patient educated on proper diabetic foot care and the importance of tight glycemic control in regards to the prevention of diabetic manifestations and symptomatology in lower extremity. Explained to patient the importance of keeping interdigital spaces dry, not walking bare foot, having supportive shoe gear, using moisturizer to skin on feet daily especially in winter months, and checking feet daily for any new lesions or areas suspicious of trauma infection or ulceration. Explained to patient to return to ED if any change in foot health associated with signs of systemic infection including but not limited to nausea, vomiting, fever. Next Appt Details Follow Up: 3 Months, Reason: Provider Name:KAREN RAMOS, 04/28/2025 08:50:00 AM, [address] [place] [address], [phone], Progress Notes * MORE LUCIO EDOB:1955 (69 yo M)Acc No.[id number]:06/10/2024 Patient: MORE ANDERSON Provider: Marielle SESAY :1955 A ge:68 Y S ex:Male Date:06/10/2024 Address:[address] [place] [address] Subjective: * Chief Complaints: * 1 . *General care. * HPI: H PI: General care P atient presents to the office for diabetic foot care. Patient states that their nails are thickened, elongated and painful. Patient states that it is aggravated by shoe gear. Onset is gradual., Patient denies taking prescription blood thinners but does take a daily aspirin., Date last seen by Dr. Day was 03/2024., Initials [facility]. * ROS: G eneral / Constitutional: Patient denies w eakness. R espiratory: Patient denies c hronic cough, shortness of breath, sputum production. C ardiovascular: Patient denies c hest pain, history of [place], irregular heartbeat. M usculoskeletal: Patient complains of h ammertoes. P eripheral Vascular: Patient denies b lanching of skin, cold extremities, decreased sensation in extremities. S kin: Patient complains of n ail changes, fungal nails. ? N eurologic: Patient denies d izziness, gait abnormality, headache. * Medical History: * Medications: T aking Synjardy 12.5-1000 MG Tablet 1 tablet with meals Orally Twice a day , Taking Glimepiride 4 MG Oral Tablet ORAL , Notes to Pharmacist: glimepiride 4 MG Oral TabletOriginal Medicationglimepiride 4 MG Oral Tablet *Reorder from [employer] for eRx and Interaction Alerts*, Taking Fenofibrate 120 MG Oral Tablet ORAL , Notes to Pharmacist: fenofibrate 120 MG Oral TabletOriginal Medicationfenofibrate 120 MG Oral Tablet *Reorder from [employer] for eRx and Interaction Alerts*, Taking aspirin 81 MG Delayed Release Oral Tablet [Aspir-Low] ORAL , Notes to Pharmacist: aspirin 81 MG Delayed Release Oral Tablet [Aspir-Low]Original Medicationaspirin 81 MG Delayed Release Oral Tablet [Aspir-Low] *Reorder from [facility] for eRx and Interaction Alerts*, Taking atorvastatin 40 MG Oral Tablet ORAL , Notes to Pharmacist: atorvastatin 40 MG Oral TabletOriginal Medicationatorvastatin 40 MG Oral Tablet *Reorder from [facility] for eRx and Interaction Alerts*, Taking hydrochlorothiazide 25 MG / losartan potassium 100 MG Oral Tablet ORAL , Notes to Pharmacist: hydrochlorothiazide 25 MG / losartan potassium 100 MG Oral TabletOriginal Medicationhydrochlorothiazide 25 MG / losartan potassium 100 MG Oral Tablet *Reorder from [facility] for eRx and Interaction Alerts*, Taking metformin hydrochloride 500 MG Oral Tablet ORAL , Notes to Pharmacist: metformin hydrochloride 500 MG Oral TabletOriginal Medicationmetformin hydrochloride 500 MG Oral Tablet *Reorder from [facility] for eRx and Interaction Alerts*, Taking sitagliptin 50 MG Oral Tablet [ia] ORAL , Notes to Pharmacist: sitagliptin 50 MG Oral Tablet []Original Medicationsitagliptin 50 MG Oral Tablet [] *Reorder from [facility] for eRx and Interaction Alerts* Objective: * Vitals: * Examination: P hysical Examination: V ascular: Dorsalis Pedis pulse noted at 1/4 right foot and 1/4 left foot and Posterior Tibial pulse noted at 1/4 right foot and 1/4 left foot, Capillary refill times noted to be less than three seconds x ten, Temperature gradient noted to be warm to cool to bilateral foot, pedal hair present to bilateral foot and no varicosities are noted Dermatologic: there are no open lesions, no signs of active clinical infection, no erythema noted, no ecchymoses, nails are elongated thickened and dystrophic with subungual debris x ten Musculoskeletal: there is pain to palpation onto nail plate x ten, no calf pain noted bilaterally, arch height noted at 2/5 non-weight bearing bilaterally, first metatarsophalangeal joint range of motion 30 deg non-weight bearing bilaterally, flexible fifth digit hammer toe deformity noted to bilateral foot reducible with kelikian push up test Neurology: protective sensation intact to light touch bilateral digits one through five, vibratory sensation intact to first metatarsophalangeal joint bilaterally. Assessment: * Assessment: 1. T inea unguium - B35.1 (Primary) 2 . O ther hammer toe(s) (acquired), right foot - M20.41 3 . O ther hammer toe(s) (acquired), left foot - M20.42 ? 4 . P ain in right toe(s) - M79.674 5 . P ain in left toe(s) - M79.675 6 . U nspecified atherosclerosis of [place] arteries of extremities, bilateral legs - I70.203 7 . T ype 2 diabetes mellitus with diabetic peripheral angiopathy without gangrene - E11.51 Plan: * Treatment: 2. O ther hammer toe(s) (acquired), right foot Notes: The patient was educated regarding how to mechanically stabilize their deformity. The patient was given education about shoe recommendations specific for the condition. The patient was educated about custom orthotics and how appropriate shoes and orthotics can prevent further worsening of the deformity. The patient was educated about how bad shoe habits can worsen the condition. NSAIDS, P.T., injections and other conservative treatments were discussed. Both surgical and non surgical treatments were discussed, but conservative options were emphasized. 3. U nspecified atherosclerosis of [place] arteries of extremities, bilateral legs Notes: Patient educated on risks and aggravating factors of PVD, including conservative treatment options such as a diet and exercise regimen to aid in slowing progression of vascular disease ? 4. T ype 2 diabetes mellitus with diabetic peripheral angiopathy without gangrene Notes: Patient educated on proper diabetic foot care and the importance of tight glycemic control in regards to the prevention of diabetic manifestations and symptomatology in lower extremity. Explained to patient the importance of keeping interdigital spaces dry, not walking bare foot, having supportive shoe gear, using moisturizer to skin on feet daily especially in winter months, and checking feet daily for any new lesions or areas suspicious of trauma infection or ulceration. Explained to patient to return to ED if any change in foot health associated with signs of systemic infection including but not limited to nausea, vomiting, fever. * Follow Up: 3 Months * Billing Information: * Visit Code: 52408 Office Visit, Est Pt., Level 3. * Procedure Codes: * Electronic signature of GT SESAY DPM on 04/12/2025 at 07:51 AM CDT Sign off status: Pending * Provider: Marielle SESAY Date: 08/11/2023 Generated for Tray clancy/Elke/Johana on: 07:51 AM CDT History and Physical Notes * HPI (History of Present Illness) Category Sub-Category Detail Notes Category Not es HPI General care Patient presents to the office for diabetic foot care. Patient states that their nails are thickened, elongated and painful. Patient states that it is aggravated by shoe gear. Onset is gradual., Patient denies taking prescription blood thinners but does take a daily aspirin., Date last seen by Dr. Day was 03/2024., Initials [facility] Examination Category Sub-Category Detail Notes Category Not es Physical Examination Vascular: Dorsalis Pedis pulse noted at 1/4 right foot and 1/4 left foot and Posterior Tibial pulse noted at 1/4 right foot and 1/4 left foot, Capillary refill times noted to be less than three seconds x ten, Temperature gradient noted to be warm to cool to bilateral foot, pedal hair present to bilateral foot and no varicosities are noted Dermatologic: there are no open lesions, no signs of active clinical infection, no erythema noted, no ecchymoses, nails are elongated thickened and dystrophic with subungual debris x ten Musculoskeletal: there is pain to palpation onto nail plate x ten, no calf pain noted bilaterally, arch height noted at 2/5 non-weight bearing bilaterally, first metatarsophalangeal joint range of motion 30 deg non-weight bearing bilaterally, flexible fifth digit hammer toe deformity noted to bilateral foot reducible with kelikian push up test Neurology: protective sensation intact to light touch bilateral digits one through five, vibratory sensation intact to first metatarsophalangeal joint bilaterally
--- OUTSIDE RECORDS SUMMARY | 2024-12-16 04:30 | XMS_ITS ---
Author Organization [facility] Address [address] [place], [place] [id number] Care Team Providers Care Ship Wirer Name Role Phone MARIANELA LOBATO Unavailable [phone] Marva Day Unavailable Unavailable KAREN MONTERROSO Unavailable [phone] REASON FOR VISIT *General care Medications Medication SIG (Take, Route, Frequency, Duration) Notes Start Date End Date Status hydrochlorothiazide 25 MG / losartan potassium 100 MG Oral Tablet ORAL hydrochlorothiazide 25 MG / losartan potassium 100 MG Oral TabletOriginal Medicationhydrochlorothiazide 25 MG / losartan potassium 100 MG Oral Tablet *Reorder from [facility] for eRx and Interaction Alerts* 020 Active atorvastatin 40 MG Oral Tablet ORAL atorvastatin 40 MG Oral TabletOriginal Medicationatorvastatin 40 MG Oral Tablet *Reorder from [facility] for eRx and Interaction Alerts* 020 Active aspirin 81 MG Delayed Release Oral Tablet [Aspir-Low] ORAL aspirin 81 MG Delayed Releas e Oral Tablet [Aspir-Low]Original Medicationaspirin 81 MG Delayed Release Oral Tablet [Aspir-Low] *Reorder from [facility] for eRx and Interaction Alerts* 020 Active sitagliptin 50 MG Oral Tablet [Junuvia] ORAL sitagliptin 50 MG Oral Table t [Junuvia]Original Medicationsitagliptin 50 MG Oral Tablet [Junuvia] *Reorder from [facility] for eRx and Interaction Alerts* 020 Active metformin hydrochloride 500 MG Oral Tablet ORAL metformin hydrochloride 500 MG Oral TabletOriginal Medicationmetformin hydrochloride 500 MG Oral Tablet *Reorder from [facility] for eRx and Interaction Alerts* 020 Active Glimepiride 4 MG Oral Tablet ORAL glimepiride 4 MG Oral TabletOriginal Medicationglimepiride 4 MG Oral Tablet *Reorder from [facility] for eRx and Interaction Alerts* 020 Active Synjardy 12.5-1000 MG 1 tablet with meals Orally Twice a day Active Fenofibrate 120 MG Oral Tablet ORAL fenofibrate 120 MG Oral TabletOriginal Medicationfenofibrate 120 MG Oral Tablet *Reorder from [facility] for eRx and Interaction Alerts* 020 Active Vital Signs Height 70.00 in 12/16/2024 Weight 240 lbs 12/16/2024 BMI 34.43 kg/m2 12/16/2024 Height-cm 177.80 cm 12/16/2024 Weight-kg 108.86 kg 12/16/2024 Encounters Encounter Location Date Provider Diagnosis [address] [id number] 12/16/2024 KAREN MONTERROSO Tinea unguium B35.1 ; Pain in right toe(s) M79.674 ; Pain in left toe(s) M79.675 and Atherosclerosis of [place] arteries of extremities with intermittent claudication, bilateral legs I70.213 Assessments Encounter Date Diagnosis (ICD Code) Assessment Notes Treatment Notes Treatment Clinical Notes Section Notes 12/16/2024 Tinea unguium (ICD-10 - B35.1) FUNGAL TOENAILS: Discussed various treatment options for fungal toenails including debridement, topical antifungals, oral antifungals, toenail avulsion, or toenail matrixectomy. NAIL DEBRIDEMENT: Nails 1-5 Bilateral were debrided extensively with nail nippers and emery board, reducing length and girth to pink healthy tissue with any subungual debris and necrotic tissue removed 12/16/2024 Pain in right toe(s) (ICD-10 - M79.674) 12/16/2024 Pain in left toe(s) (ICD-10 - M79.675) 12/16/2024 Atherosclerosis of [place] arteries of extremities with intermittent claudication, bilateral [...] sooner if problems arise Provider Name:KAREN RAMOS, 04/28/2025 08:50:00 AM, [address] [place] [address], [phone], Progress Notes * MORE LUCIO EDOB:1955 (69 yo M)Acc No.[id number]:12/16/2024 Patient: Hugo RIOS MORE Zeferino Provider: Devon MONTERROSO :1955 A ge:69 Y S ex:Male Date:12/16/2024 Address:[address] [place] [address] Subjective: * Chief Complaints: * 1 . [...] Date last seen by Dr. Day was 07/2024., Initials [facility]. * ROS: G eneral / [...] difficulty speaking, dizziness. * Medical History: * Social History: M igrated Social History: M igrated Social History: Alcohol intake : , Smoking Status : Former tobacco user , History of tobacco use :. * Medications: T christin Synjardy 12.5-1000 MG Tablet 1 tablet with meals Orally Twice a day , Taking Glimepiride 4 MG Oral Tablet ORAL , Notes to Pharmacist: glimepiride 4 MG Oral TabletOriginal Medicationglimepiride 4 MG Oral Tablet *Reorder from [facility] for eRx and Interaction Alerts*, Taking Fenofibrate 120 MG Oral Tablet ORAL , Notes to Pharmacist: fenofibrate 120 MG Oral TabletOriginal Medicationfenofibrate 120 MG Oral Tablet *Reorder from [facility] for eRx and Interaction Alerts*, Taking aspirin 81 MG Delayed Release Oral Tablet [Aspir-Low] ORAL , Notes to Pharmacist: aspirin 81 MG Delayed Release Oral Tablet [Aspir-Low]Original Medicationaspirin 81 MG Delayed Release Oral Tablet [Aspir-Low] *Reorder from [facility] for eRx and Interaction Alerts*, Taking atorvastatin 40 MG Oral Tablet ORAL , Notes to Pharmacist: atorvastatin 40 MG Oral TabletOriginal Medicationatorvastatin 40 MG Oral Tablet *Reorder from [facility] for eRx and Interaction Alerts*, Taking hydrochlorothiazide 25 MG / losartan potassium 100 MG Oral Tablet ORAL , Notes to Pharmacist: hydrochlorothiazide 25 MG / losartan potassium 100 MG Oral TabletOriginal Medicationhydrochlorothiazide 25 MG / losartan potassium 100 MG Oral Tablet *Reorder from [facility] for eRx and Interaction Alerts*, Taking metformin hydrochloride 500 MG Oral Tablet ORAL , Notes to Pharmacist: metformin hydrochloride 500 MG Oral TabletOriginal Medicationmetformin hydrochloride 500 MG Oral Tablet *Reorder from [facility] for eRx and Interaction Alerts*, Taking sitagliptin 50 MG Oral Tablet [Januvia] ORAL , Notes to Pharmacist: sitagliptin 50 MG Oral Tablet [Januvia]Original Medicationsitagliptin 50 MG Oral Tablet [Januvia] *Reorder from [facility] for eRx and Interaction Alerts*, Medication List reviewed and reconciled with the patient Objective: * Vitals: W t:240lbs, Wt-k.86 kg, Ht: 70.00 in, Ht-cm: 177.80 cm, BMI:34.43Index, Body Surface Area: 2.32. * Examination: C onstitutional: Constitutional T he [...] is, limited. Assessment: * Assessment: 1. T inea unguium - B35.1 (Primary) 2 . P ain in right toe(s) - M79.674? 3. P ain in left toe(s) - M79.675 4 . A therosclerosis of [place] arteries of extremities with intermittent claudication, bilateral legs - I70.213 Plan: * Treatment: * Immunizations: Immunization record has been reviewed and updated. * Follow Up: 1 0-12 Weeks (Reason: At Risk Foot care, sooner if problems arise) * Billing Information: * Visit Code: 34387 Office Visit, Est Pt., Level 3. * Procedure Codes: * Electronic signature of SPENSER MONTERROSO DPM on 04/12/2025 at 07:51 AM CDT Sign off status: Pending * Provider: Devon MONTERROSO Date: 0 12/16/2024 Generated for Tray clancy/Elke/Johana on: 1 07:51 AM CDT History and Physical Notes [...] Date last seen by Dr. Day was 07/2024., Initials mca Examination Category Sub-Category Detail Notes [...]
--- OUTSIDE RECORDS SUMMARY | 2025-02-24 04:00 | XMS_ITS ---
Author Organization [facility] Address [address] [place], [place] [address] Care Team Providers Care Sugarcane Research Technician Name Role Phone MARIANELA LOBATO Unavailable [phone] Marva Day Unavailable Unavailable KAREN MONTERROSO Unavailable [phone] Allergies No Known Allergies REASON FOR VISIT *General care Medications Medication SIG (Take, Route, Frequency, Duration) Notes Start Date End Date Status atorvastatin 40 MG Oral Tablet ORAL atorvastatin 40 MG Oral TabletOriginal Medicationatorvastatin 40 MG Oral Tablet *Reorder from [employer] for eRx and Interaction Alerts* 020 Active Synjardy 12.5-1000 MG 1 tablet with meals Orally Twice a day Active Fenofibrate 120 MG Oral Tablet ORAL fenofibrate 120 MG Oral TabletOriginal Medicationfenofibrate 120 MG Oral Tablet *Reorder from [employer] for eRx and Interaction Alerts* 020 Active Glimepiride 4 MG Oral Tablet ORAL glimepiride 4 MG Oral TabletOriginal Medicationglimepiride 4 MG Oral Tablet *Reorder from [employer] for eRx and Interaction Alerts* 020 Active aspirin 81 MG Delayed Release Oral Tablet [Aspir-Low] ORAL aspirin 81 MG Delayed Releas e Oral Tablet [Aspir-Low]Original Medicationaspirin 81 MG Delayed Release Oral Tablet [Aspir-Low] *Reorder from [employer] for eRx and Interaction Alerts* 020 Active hydrochlorothiazide 25 MG / losartan potassium 100 MG Oral Tablet ORAL hydrochlorothiazide 25 MG / losartan potassium 100 MG Oral TabletOriginal Medicationhydrochlorothiazide 25 MG / losartan potassium 100 MG Oral Tablet *Reorder from [employer] for eRx and Interaction Alerts* Active sitagliptin 50 MG Oral Tablet [] ORAL sitagliptin 50 MG Oral Table t []Original Medicationsitagliptin 50 MG Oral Tablet [] *Reorder from [facility] for eRx and Interaction Alerts* 020 Active metformin hydrochloride 500 MG Oral Tablet ORAL metformin hydrochloride 500 MG Oral TabletOriginal Medicationmetformin hydrochloride 500 MG Oral Tablet *Re[facility] from [facility] for eRx and Interaction Alerts* 020 Active Vital Signs Height 70.00 in 02/24/2025 Weight 240 lbs 02/24/2025 BMI 34.43 kg/m2 02/24/2025 Height-cm 177.80 cm 02/24/2025 Weight-kg 108.86 kg 02/24/2025 Encounters Encounter Location Date Provider Diagnosis [address] [id number] 02/24/2025 KAREN MONTERROSO Plan Of Treatment Next Appt Details Provider Name:KAREN RAMOS, 04/28/2025 08:50:00 AM, [address] [place] [address], [phone], Progress Notes * MORE LUCIO EDOB:1955 (69 yo M)Acc No.[id number]:02/24/2025 Patient: MORE ANDERSON Provider: Devon MONTERROSO :1955 A ge:69 Y S ex:Male Date:02/24/2025 Address:[address] [place] [address] Subjective: * Chief Complaints: * 1 . [...] Date last seen by Dr. Day was 12/2024., Initials nd. N ew Complaint E stablished patient presents with a new complaint., Patient complains of an issue to right foot pain, Duration of problem is 2 months., Patient denies any injury. Patient provided X-ray results for review. MA: ND. * Medical History: N o Reported Medical History.Medical History Verified. * Surgical History: D enies Past Surgical History. * Hospitalization/Major Diagno stic Procedure: D enies Past Hospitalization. * Family History: N o Family History documented.. * Social History: M igrated Social History: M igrated Social History: Alcohol intake : , Smoking Status : Former tobacco user , History of tobacco use :. * Medications: T aking Synjardy 12.5-1000 MG Tablet 1 tablet with meals Orally Twice a day , Taking Glimepiride 4 MG Oral Tablet ORAL , Notes to Pharmacist: glimepiride 4 MG Oral TabletOriginal Medicationglimepiride 4 MG Oral Tablet *Reorder from [facility] for eRx and Interaction Alerts*, Taking Fenofibrate 120 MG Oral Tablet ORAL , Notes to Pharmacist: fenofibrate 120 MG Oral TabletOriginal Medicationfenofibrate 120 MG Oral Tablet *Reorder from [facility] for eRx and Interaction Alerts*, Taking aspirin 81 MG Delayed Release Oral Tablet [Aspir-Low] ORAL , Notes to Pharmacist: aspirin 81 MG Delayed Release Oral Tablet [Aspir-Low]Original Medicationaspirin 81 MG Delayed Release Oral Tablet [Aspir-Low] *Reorder from [facility] for eRx and Interaction Alerts*, Taking atorvastatin 40 MG Oral Tablet ORAL , Notes to Pharmacist: atorvastatin 40 MG Oral TabletOriginal Medicationatorvastatin 40 MG Oral Tablet *Reorder from [facility] for eRx and Interaction Alerts*, Taking hydrochlorothiazide 25 MG / losartan potassium 100 MG Oral Tablet ORAL , Notes to Pharmacist: hydrochlorothiazide 25 MG / losartan potassium 100 MG Oral TabletOriginal Medicationhydrochlorothiazide 25 MG / losartan potassium 100 MG Oral Tablet *Reorder from [facility] for eRx and Interaction Alerts*, Taking metformin hydrochloride 500 MG Oral Tablet ORAL , Notes to Pharmacist: metformin hydrochloride 500 MG Oral TabletOriginal Medicationmetformin hydrochloride 500 MG Oral Tablet *Reorder from [facility] for eRx and Interaction Alerts*, Taking sitagliptin 50 MG Oral Tablet [Januvia] ORAL , Notes to Pharmacist: sitagliptin 50 MG Oral Tablet [Junuvia]Original Medicationsitagliptin 50 MG Oral Tablet [Junuvia] *Reorder from [facility] for eRx and Interaction Alerts*, Medication List reviewed and reconciled with the patient * Allergies: N .K.D.A. Objective: * Vitals: W t:240lbs, Wt-k.86 kg, Ht: 70.00 in, Ht-cm: 177.80 cm, BMI:34.43Index, Body Surface Area: 2.32. Assessment: Plan: * Treatment: * Preventive Medicine: Screenings: F all risk screening F all Risk Assessment: N o falls in the past year. * Billing Information: * Visit Code: * Procedure Codes: * Electronic signature of SPENSER MONTERROSO DPM on 04/12/2025 at 07:51 AM CDT Sign off status: Pending * Provider: Devon MONTERROSO Date: 0 02/24/2025 Generated for Tray clancy/Elke/Johana on: 1 07:51 [...] Date last seen by Dr. Day was 12/2024., Initials nd New Complaint Established patient presents with a new complaint., Patient complains of an issue to right foot pain, Duration of problem is 2 months., Patient denies any injury. Patient provided X-ray results for review. MA: JOANNE
--- NOTE | 2025-04-11 | S_PTH ---
PATIENT: Karson Maharaj LOC: [facility] #:[id number] AGE/SX: 69/M ROOM: RE04/11/[address]: Hal Thomas DO : 1955 BED: DIS: 04/11/2025 SPEC #: [id number] RECD: 04/12/25 08:42 STATUS: MAIRA REQ #: [id number] ALICE: 04/11/25 00:[address]: Hal Thomas DEPT: [facility] Surgical RECD BY: Bettina Elias ENTERED: 04/12/25 08:43 SP TYPE: Surgical OTHR DR: Nghia Day MD Tissues: A - Colon Polypectomy B - Colon Polypectomy Procedures: Hematoxylin and Eosin Stain Gross and Microscopic Level 4
--- OUTSIDE RECORDS SUMMARY | 2025-04-12 07:51 | XMS_ITS | Clinical Summary ---
Author Organization [facility] [employer] Address [address] [facility] [place] [address] Care Team Providers Care Chemical Processing Equipment Repairer Name Role Phone Nghia Day MD Primary Care Provider [phone] Mariano Blue Unavailable Unavailable John Nelson DPM Unavailable [phone] Source Comments [facility],non-owned Affiliates and Associated Physician Practices is amultiple site organization consisting of ambulatory clinics and hospital sitesin [place], [place], [place] and [place]. This disclosure is being madepursuant to the Care Everywhere program and may not contain all information available regarding this patient. Last updated 18.[facility] [employer] Allergies No known active allergies Medications * [...] 05/25/2019 Immunizations Immunization Administration Dates Next Due COVEpiEP BIVALENT 12Y+ 30mcg/0.3ML 2 CovTruly Wireless primary monoval ent 12+ yr 0.3mL Purple [...] on file Legal Sex Male 6:27 PM ALMOND BLANCHER HAND Gender Identity Not on file Sexual [...] within a diagnostic category. Test Performed at: [facility] [address] [place] [address] FELA BUTLER DO,MPH 03/10/2020 8:16 AM CDT 03/10/2020 8:18 AM CDT Anayeli Montemayor ELEVATED MOTORMAN-VAMP CUT OUT WORKER LAB - URINE EKG/ECG TECHNICIAN RY ORDERABLES Final Result [facility] [address] [place] [address] from Last 3 Months or Most Recently Relevant to Health Maintenance Insurance [employer] MEDICARE ADV Care Teams Chemical Processing Equipment Repairer Relationship Specialty Start Date End Date Nghia Day MD PCP - General Internal Medicine 02/04/20 Mariano Blue Update Information Die Maker Trim 02/08/20 John Nelson DPM Update Information Resident Student Resident 02/08/20
--- OUTSIDE RECORDS SUMMARY | 2025-04-12 07:52 | XMS_ITS | Patient Health Record ---
Author Organization [facility] Address [address] [place], [place] [address] Care Team Providers Care Tufter Operator Name Role Phone MARIANELA LOBATO Unavailable [phone] Marva Day Unavailable Unavailable JEFFRY SESAY Unavailable [phone] KAREN MONTERROSO Unavailable [phone] Allergies No Known Allergies Reason For Referral No Information Medications Medication SIG (Take, Route, Frequency, Duration) Notes Start Date End Date Status hydrochlorothiazide 25 MG / losartan potassium 100 MG Oral Tablet ORAL hydrochlorothiazide 25 MG / losartan potassium 100 MG Oral TabletOriginal Medicationhydrochlorothiazide 25 MG / losartan potassium 100 MG Oral Tablet *Reorder from [facility] for eRx and Interaction Alerts* Active atorvastatin 40 MG Oral Tablet ORAL atorvastatin 40 MG Oral TabletOriginal Medicationatorvastatin 40 MG Oral Tablet *Reorder from [facility] for eRx and Interaction Alerts* Active sitagliptin 50 MG Oral Tablet [Junuvia] ORAL sitagliptin 50 MG Oral Table t []Original Medicationsitagliptin 50 MG Oral Tablet [] *Reorder from [facility] for eRx and Interaction Alerts* Active metformin hydrochloride 500 MG Oral Tablet ORAL metformin hydrochloride 500 MG Oral TabletOriginal Medicationmetformin hydrochloride 500 MG Oral Tablet *Reorder from [facility] for eRx and Interaction Alerts* 020 Active Synjardy 12.5-1000 MG 1 tablet with meals Orally Twice a day Active Fenofibrate 120 MG Oral Tablet ORAL fenofibrate 120 MG Oral TabletOriginal Medicationfenofibrate 120 MG Oral Tablet *Reorder from [employer] for eRx and Interaction Alerts* 020 Active Glimepiride 4 MG Oral Tablet ORAL glimepiride 4 MG Oral TabletOriginal Medicationglimepiride 4 MG Oral Tablet *Reorder from [facility] for eRx and Interaction Alerts* 020 Active aspirin 81 MG Delayed Release Oral Tablet [Aspir-Low] ORAL aspirin 81 MG Delayed Releas e Oral Tablet [Aspir-Low]Original Medicationaspirin 81 MG Delayed Release Oral Tablet [Aspir-Low] *Reorder from [facility] for eRx and Interaction Alerts* 020 Active Immunizations Vaccine Route Administration Date Status Comme nts Influenza, high dose seasonal Unknown 04/14/2023 Admini stered Pfizer-Biontech Covid-19 Vac cine 1st dose Unknown 08/11/2020 Administered Pfizer-Biontech Covid-19 Vac cine 1st dose Unknown 09/01/2020 Administered Tdap Unknown 12/27/2019 Administered Vital Signs Height-cm 177.80 cm 02/24/2025 Weight-kg 108.86 kg 02/24/2025 Height 70.00 in 02/24/2025 Weight 240 lbs 02/24/2025 BMI 34.43 kg/m2 02/24/2025 Encounters Encounter Location Date Provider Diagnosis [address] [id number] 06/10/2024 JEFFRY SESAY Other hammer toe(s) (acquired), right foot M20.41 ; Tinea unguium B35.1 ; Other hammer toe(s) (acquired), left foot M20.42 ; Pain in right toe(s) M79.674 ; Pain in left toe(s) M79.675 ; Unspecified atherosclerosis of [place] arteries of extremities, bilateral legs I70.203 and Type 2 diabetes mellitus with diabetic peripheral angiopathy without gangrene E11.[address] [id number] 12/16/2024 KAREN MONTERROSO Tinea unguium B35.1 ; Pain in right toe(s) M79.674 ; Pain in left toe(s) M79.675 and Atherosclerosis of [place] arteries of extremities with intermittent claudication, bilateral legs I70.213 [facility] [address] [place], [place] [id number] 02/24/2025 KAREN MONTERROSO [facility] [address] [place], [place] [id number] 08/19/2024 MARIANELA LOBATO Tinea unguium B35.1 ; Pain in right toe(s) M79.674 ; Pain in left toe(s) M79.675 and Atherosclerosis of [place] arteries of extremities with intermittent claudication, bilateral legs I70.213 Assessments Encounter Date Diagnosis (ICD Code) Assessment Notes Treatment Notes Treatment Clinical Notes Section Notes 06/10/2024 Tinea unguium (ICD-10 - B35.1) Aseptic [...] toe(s) (ICD-10 - M79.674) 08/19/2024 Atherosclerosis of [place] arteries of extremities with intermittent claudication, bilateral legs (ICD-10 - I70.213) 12/16/2024 Atherosclerosis of [place] arteries of extremities with intermittent claudication, bilateral legs (ICD-10 - I70.213) 06/10/2024 Pain in left toe(s) (ICD-10 - M79.675) 06/10/2024 Unspecified atherosclerosis of [place] arteries of extremities, bilateral legs (ICD-10 - [...] Details Provider Name:KAREN RAMOS, 04/28/2025 08:50:00 AM, [address] [place] [address], [phone], Insurance Providers Payer Name Payer Address Payer Phone Subscriber Number Group Number Insured Name Patient Relationship to Insured Coverage Start Date Coverage End Date [employer] [address] [place] [phone] [id number] MORE LUCIO Self - patient is the insured
--- OUTSIDE RECORDS SUMMARY | 2025-04-12 07:52 | XMS_ITS | Clinical Summary ---
Author Organization [facility] [address] [facility] [address] Address [address] [place] [address] Care Team Providers Care Programmer Developer Name Role Phone Jeff Sanchez MD Primary Care Provider [phone] Allergies No known active allergies Medications aspirin [...] on file Legal Sex Male 6:31 PM BATTER OUT Gender Identity Not on file Sexual Orientation [...] Plan of Treatment Not on file Insurance [facility] MEDICARE AD[facility]ANTAGE [facility] Address: [facility] [address] [place] [address] Care Teams Programmer Developer Relationship Specialty Start Date End Date Jeff Sanchez MD [address] [place] [address] PCP - General Orthopedic Surgery 12/25/20
== END 2025-04-11 07:45 | disposition home or self-care (01) ==
LOC: ANHLAB 04-12 07:48
PROVIDERS: PCP Internal Medicine; Visit Provider Surgery
DX: Z12.11 Encounter for screening for malignant neoplasm of colon (principal); Z86.0100 Personal history of colon polyps, unspecified
CPT/HCPCS: 88305